=== PATIENT | female | born 1995 | race Hispanic/Latino ===

== ENCOUNTER 2017-09-30 11:12 | Emergency (ER) | payer OTHER, SELFPAY ==
[2017-09-30 12:03] LABS: Absolute Lymphocytes (CBC) 1.3 K/uL (0.7-4.9); Absolute Monocytes 0.6 K/uL (0.1-1.3); Absolute Neutrophil 7.5 K/uL (1.8-8.0); Basophils % 0.6 % (0-1.3); Eosinophils % 0.8 % (0-4.4); Hematocrit 39.8 % (36.0-45.0); Lymphocytes % 13.1 % (15.3-44.8); MCH 27.6 pg (27.0-35.0); MPV 9.1 fL (7.6-11.3); Monocytes % 6.8 % (3.3-12.3); RBC Red Blood Cell Count 4.85 M/uL (3.86-4.86)
[2017-09-30 12:06] LABS: Urine Bacteria NONE SEEN /HPF (<20); Urine Culture Reflex Order NOT NEEDED; Urine Mucus MOD /HPF (NONE SEEN); Urine RBC NONE SEEN /HPF (NONE SEEN)
[2017-09-30 12:07] LABS: Urine Blood NEGATIVE (NEG); Urine Glucose NEGATIVE (NEG); Urine Protein TRACE (NEG)
[2017-09-30] MEDS ORDERED: NA CHLORIDE 0.9% 1,000 ML ONE (12:07)
[2017-09-30 12:16] LABS: BUN Blood Urea Nitrogen 15 mg/dL (7-18); Bicarbonate 28 mmol/L (21-32); Glucose Level 88 mg/dL (74-106); Potassium 3.8 mmol/L (3.5-5.1); Sodium Level 141 mmol/L (136-145)
--- NOTE | 2017-09-30 13:06 | RAD REPORT ---
EXAM DESCRIPTION: CT - Stone Protocol - 09/30/2017 12:43 pm CLINICAL HISTORY: Flank pain. FLANK PAIN COMPARISON: No comparisonsNo comparisons TECHNIQUE: Axial images were obtained without oral or IV contrast. Lack of contrast limits solid org an and vascular assessment. The [id number] spans the entirety of the system partially obscuring uppermost abdomen and lung bases. Coronal reformatted images were obtained and reviewed. All CT scans are performed using dose optimization technique as appropriate and may include automated exposure control or mA/KV adjustment according to patient size. FINDINGS: The lower lung sanders are clear. Imaged portions of the liver and spleen show no suspicious findings on non-contrast imaging. The panc reas and adrenal glands are normal. No pathologic lymphadenopathy in the abdomen or pelvis. 2 mm calculus is present the left UVJ resulting in mild left hydronephrosis No bowel obstruction, free air, free fluid or abscess. Appendectomy. No significant bony abnormality. IMPRESSION: 2 mm left UVJ calculus resulting in mild left hydronephrosis.
--- NOTE | 2017-09-30 13:09 | EDPHYS ---
Physician Documentation [facility] Name: Keyla Addison Age: 22 yrs Sex: Female : 1995 Arrival Date: 09/30/2017 Time: 11:14 Bed 15 Private MD: None, None ED Physician Alphonso Espinal HPI: 09/30 12:33 This 22 yrs old Female presents to ER via Ambulatory with complaints of SIDE snw PAIN. 12:33 The patient complains of pain in the left mid back. The pain does not radiate. Onset: snw The symptoms/episode began/occurred suddenly, last night. Associated signs and symptoms: The patient has no apparent associated signs or symptoms. Severity of pain: At its worst the pain was moderate severe. The patient has not experienced similar symptoms in the past. It is unknown whether or not the patient has recently seen a physician. 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 - Social history:: Smoking status: Patient/guardian denies using tobacco. - Ebola Screening: : No symptoms or risks identified at this time. ROS: 12:32 Constitutional: Negative for fever, chills, and weight loss, Eyes: Negative for injury, snw pain, redness, and discharge, ENT: Negative for injury, pain, and discharge, Neck: Negative for injury, pain, and swelling, Cardiovascular: Negative for chest pain, palpitations, and edema, Respiratory: Negative for shortness of breath, cough, wheezing, and pleuritic chest pain, Abdomen/GI: Negative for abdominal pain, nausea, vomiting, diarrhea, and constipation, : Negative for injury, bleeding, discharge, and swelling, MS/Extremity: Negative for injury and deformity, Skin: Negative for injury, rash, and discoloration, Neuro: Negative for headache, weakness, numbness, tingling, and seizure. 12:32 Back: Positive for flank pain, on the left. Exam: 12:32 Constitutional: This is a well developed, well nourished patient who is awake, alert, snw and in no acute distress. Head/Face: Normocephalic, atraumatic. Eyes: Pupils equal round and reactive to light, extra-ocular motions intact. Lids and lashes normal. Conjunctiva and sclera are non-icteric and not injected. Cornea within normal limits. Periorbital areas with no swelling, redness, or edema. ENT: Nares patent. No nasal discharge, no septal abnormalities noted. Tympanic membranes are normal and external auditory canals are clear. Oropharynx with no redness, swelling, or masses, exudates, or evidence of obstruction, uvula midline. Mucous membranes moist. Neck: Trachea midline, no thyromegaly or masses palpated, and no cervical lymphadenopathy. Supple, full range of motion without nuchal rigidity, or vertebral point tenderness. No Meningismus. Chest/axilla: Normal chest wall appearance and motion. Nontender with no deformity. No lesions are appreciated. Cardiovascular: Regular rate and rhythm with a normal S1 and S2. No gallops, murmurs, or rubs. Normal PMI, no JVD. No pulse deficits. Respiratory: Lungs have equal breath sounds bilaterally, clear to auscultation and percussion. No rales, rhonchi or wheezes noted. No increased work of breathing, no retractions or nasal flaring. Abdomen/GI: Soft, non-tender, with normal bowel sounds. No distension or tympany. No guarding or rebound. No evidence of tenderness throughout. Skin: Warm, dry with normal turgor. Normal color with no rashes, no lesions, and no evidence of cellulitis. MS/ Extremity: Pulses equal, no cyanosis. Neurovascular intact. Full, normal range of motion. Neuro: Awake and alert, GCS 15, oriented to person, place, time, and situation. Cranial nerves II-XII grossly intact. Motor strength 5/5 in all extremities. Sensory grossly intact. Cerebellar exam normal. Normal gait. Psych: Awake, alert, with orientation to person, place and time. Behavior, mood, and affect are within normal limits. 12:32 Back: CVA tenderness, that is moderate, is noted on the left. Vital Signs: 11:18 BP 155 / 96; Pulse 79; Resp 18; Temp 99.7; Pulse Ox 98% ; Weight 77.11 kg; Height 5 ft. sv 3 in. (160.02 cm); Pain 7/10; 12:00 BP 125 / 83; Pulse 74; Resp 17; Pulse Ox 99% on R/A; rb1 13:00 BP 131 / 91; Pulse 75; Resp 16; Pulse Ox 100% on R/A; rb1 11:18 Body Mass Index 30.11 (77.11 kg, 160.02 cm) sv MDM: 11:21 Patient medically screened. snw 13:28 Data reviewed: vital signs, nurses notes. Data interpreted: Pulse oximetry: on room air snw is 98 %. Interpretation: normal. Counseling: I had a detailed discussion with the patient and/or guardian regarding: the historical points, exam findings, and any diagnostic results supporting the discharge/admit diagnosis, the presence of at least one elevated blood pressure reading (>120/80) during this emergency department visit, lab results, radiology results, the need for outpatient follow up, to return to the emergency department if symptoms worsen or persist or if there are any questions or concerns that arise at home. Special discussion: Based on the patient's Hx, exam, and Dx evaluation, there is no indication for emergent surgery or inpatient Tx. It is understood by the patient/guardian that if the Sx's persist or worsen they need to return immediately for re-evaluation. Based on the history and exam findings, there is no indication for further emergent testing or inpatient evaluation. I discussed with the patient/guardian the need to see the primary care provider for further evaluation of the symptoms. 09/30 11:36 Order name: Urine Microscopic Only; Complete Time: 12:18 snw 09/30 11:37 Order name: Basic Metabolic Panel; Complete Time: 12:18 snw 09/30 11:36 Order name: CT Stone Protocol; Complete Time: 13:07 snw 09/30 11:37 Order name: CBC with Diff; Complete Time: 12:18 snw 09/30 11:47 Order name: Urine Dipstick--Ancillary (enter results); Complete Time: 12:18 eb 09/30 11:47 Order name: Urine --Ancillary (enter results); Complete Time: 12:18 eb 09/30 11:36 Order name: Urine Test (obtain specimen); Complete Time: 11:59 snw 09/30 11:36 Order name: Urine Dipstick-Ancillary (obtain specimen); Complete Time: 11:59 snw 09/30 11:37 Order name: IV Saline Lock; Complete Time: 11:59 snw 09/30 11:37 Order name: Labs collected and sent; Complete Time: 11:59 snw Administered Medications: 12:06 Drug: NS 0.9% 1000 ml Route: IV; Rate: 1 bolus; Site: right forearm; rb1 13:10 Follow up: IV Status: Completed infusion rb1 13:12 Drug: fentaNYL (PF) 50 mcg Route: IVP; Site: right forearm; rb1 13:33 Follow up: Response: No adverse reaction; Pain is decreased rb1 13:14 Drug: TORadol 30 mg Route: IVP; Site: right forearm; rb1 13:33 Follow up: Response: No adverse reaction; Pain is decreased rb1 Disposition: 15:30 Co-signature as Attending Physician, Alphonso Espinal MD I agree with the assessment and kdr plan of care. Disposition: 09/30/17 13:09 Discharged to Home. Impression: Hydronephrosis with renal and ureteral calculous obstruction. - Condition is Stable. - Discharge Instructions: Kidney Stones, Hydronephrosis, Dietary Guidelines to Help Prevent Kidney Stones. - Prescriptions for Zofran 4 mg Oral Tablet - take 1 tablet by ORAL route every 12 hours As needed; 20 tablet. Diclofenac Sodium 75 mg Oral Tablet Sustained Release - take 1 tablet by ORAL route 2 times per day; 30 tablet. - Medication Reconciliation Form, Thank You Letter, Antibiotic Education, Prescription Opioid Use, Work release form form. - Follow up: Private Physician; When: 2 - 3 days; Reason: Recheck today's complaints, Continuance of care, Re-evaluation by your physician. Follow up: Emergency Department; When: As needed; Reason: Worsening of condition. Signatures: Dispatcher [employer] Reshma Lobo RN RN sv Rittger, Kevin, MD MD kdr Therrien, Shelly, MANAGER MOTOR-C MANAGER MOTOR-Cordellw Keyanna Lora RN RN ss Barber, Rebecca, RN RN rb1 Corrections: (The following items were deleted from the chart) 13:46 13:09 09/30/2017 13:09 Discharged to Home. Impression: Hydronephrosis with renal and ss ureteral calculous obstruction. Condition is Stable. Forms are Medication Reconciliation Form, Thank You Letter, Antibiotic Education, Prescription Opioid Use. Follow up: Private Physician; When: 2 - 3 days; Reason: Recheck today's complaints, Continuance of care, Re-evaluation by your physician. Follow up: Emergency Department; When: As needed; Reason: Worsening of condition. snw
--- NOTE | 2017-09-30 13:09 | ER ---
Nurse's Notes [facility] Name: Keyla Addison Age: 22 yrs Sex: Female : 1995 Arrival Date: 09/30/2017 Time: 11:14 Bed 15 Private MD: None, None Diagnosis: Hydronephrosis with renal and ureteral calculous obstruction Presentation: 09/30 11:17 Presenting complaint: Patient states: left flank pain that started last night. sv Transition of care: patient was not received from another setting of care. Onset of symptoms was September 29, 2017. Care prior to arrival: None. 11:17 Method Of Arrival: Ambulatory sv 11:17 Acuity: EUGENIA 3 sv 11:22 Risk Assessment: Do you want to hurt yourself or someone else? Patient reports no rb1 desire to harm self or others. Initial Sepsis Screen: Does the patient meet any 2 criteria? No. Patient's initial sepsis screen is negative. Does the patient have a suspected source of infection? No. Patient's initial sepsis screen is negative. 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 - Social history:: Smoking status: Patient/guardian denies using tobacco. - Ebola Screening: : No symptoms or risks identified at this time. Screenin:22 Abuse screen: Denies threats or abuse. Nutritional screening: No deficits noted. rb1 Tuberculosis screening: No symptoms or risk factors identified. Fall Risk None identified. Assessment: 11:22 General: Appears uncomfortable, Behavior is calm, cooperative, Denies fever. Pain: rb1 Complains of pain in left mid back Pain currently is 8 out of 10 on a pain scale. Pain began 1 day ago. Neuro: Level of Consciousness is awake, alert, obeys commands, Oriented to person, place, time, situation. Cardiovascular: Capillary refill < 3 seconds is brisk in bilateral fingers. Respiratory: Airway is patent Respiratory effort is even, unlabored, Respiratory pattern is regular, symmetrical. GI: No signs and/or symptoms were reported involving the gastrointestinal system. : No signs and/or symptoms were reported regarding the genitourinary system. Derm: Skin is dry, Skin is normal, Skin temperature is warm. 12:06 Reassessment: Patient appears in no apparent distress at this time. No changes from rb1 previously documented assessment. Family at bedside. Call light within reach. 13:05 Reassessment: Patient appears in no apparent distress at this time. Patient and/or rb1 family updated on plan of care and expected duration. Pain level reassessed. Patient is alert, oriented x 3, equal unlabored respirations, skin warm/dry/pink. Vital Signs: 11:18 BP 155 / 96; Pulse 79; Resp 18; Temp 99.7; Pulse Ox 98% ; Weight 77.11 kg; Height 5 ft. sv 3 in. (160.02 cm); Pain 7/10; 12:00 BP 125 / 83; Pulse 74; Resp 17; Pulse Ox 99% on R/A; rb1 13:00 BP 131 / 91; Pulse 75; Resp 16; Pulse Ox 100% on R/A; rb1 11:18 Body Mass Index 30.11 (77.11 kg, 160.02 cm) sv ED Course: 11:14 Patient arrived in ED. sb2 11:14 None, None is Private Physician. sb2 11:18 Triage completed. sv 11:19 Arm band placed on right wrist. sv 11:21 Amanda Watts FNP-C is [facility]. snw 11:21 Alphonso Espinal MD is Attending Physician. snw 11:21 Mellisa Galdamez, RN is Primary Nurse. rb1 11:22 Patient has correct armband on for positive identification. Bed in low position. Call rb1 light in reach. Side rails up X 1. Pulse ox on. NIBP on. 11:54 Radiology exam delayed due to test not completed at this time. sj 11:55 Urine collected: clean catch specimen, clear, sae colored. Inserted saline lock: 22 jp3 gauge in left forearm, using aseptic technique. 11:59 Pillow given. jp3 12:41 Patient moved to MD via wheelchair. vr 12:42 CT completed. Patient tolerated procedure well. Patient moved back from MD. vr 12:43 CT Stone Protocol In Process Unspecified. EDMS 13:44 No provider procedures requiring assistance completed. IV discontinued, intact, ss bleeding controlled, No redness/swelling at site. Pressure dressing applied. Administered Medications: 12:06 Drug: NS 0.9% 1000 ml Route: IV; Rate: 1 bolus; Site: right forearm; rb1 13:10 Follow up: IV Status: Completed infusion rb1 13:12 Drug: fentaNYL (PF) 50 mcg Route: IVP; Site: right forearm; rb1 13:33 Follow up: Response: No adverse reaction; Pain is decreased rb1 13:14 Drug: TORadol 30 mg Route: IVP; Site: right forearm; rb1 13:33 Follow up: Response: No adverse reaction; Pain is decreased rb1 Outcome: 13:09 Discharge ordered by . davi 13:44 Discharged to home ambulatory. ss 13:44 Condition: good 13:44 Discharge instructions given to patient, family, Instructed on discharge instructions, follow up and referral plans. medication usage, Demonstrated understanding of instructions, follow-up care, medications, Prescriptions given X 2. 13:46 Patient left the ED. Signatures: Dispatcher [employer] EDReshma Wood RN RN Amanda Mc, ROTARY RIG ENGINE OPERATOR-C ROTARY RIG ENGINE OPERATOR-Csnw Areli Carrion Shelby, RN RN ss Brittani Corbett Rebecca, RN RN rb1 Mary Caballero2 Jose Antonio Coreas jp3
[2017-09-30] MEDS ORDERED: KETOROLAC 30 MG/ML INJ ONE (13:16)
[2017-09-30] MEDS ORDERED: FENTANYL CITR 100 MCG/2 ML ONE (13:16)
== END 2017-09-30 13:46 | disposition home or self-care (01) ==
LOC: ER 11:12
DX: N13.2 Hydronephrosis with renal and ureteral calculous obstruction (principal)
CPT/HCPCS: 36415; 74176; 76377; 80048; 81003; 81015; 81025; 85025; 96361; 96374; 96375; 99284; J3010; J7030

== ENCOUNTER 2017-09-30 19:11 | Emergency (ER) | payer SELFPAY ==
[2017-09-30] MEDS ORDERED: HYDROCODONE/APAP 5/325 MG TAB ONE (19:45)
[2017-09-30] MEDS ORDERED: PROMETHAZINE 25 MG TABLET ONE (19:46)
[2017-09-30] MEDS ORDERED: FENTANYL CITR 100 MCG/2 ML ONE (19:46)
--- NOTE | 2017-09-30 21:28 | EDPHYS ---
Physician Documentation [facility] Name: Keyla Addison Age: 22 yrs Sex: Female : 1995 Arrival Date: 09/30/2017 Time: 19:13 Bed 25 Private MD: ED Physician Charan Castle HPI: 09/30 20:15 This 22 yrs old Female presents to ER via Ambulatory with complaints of Flank snw Pain. 20:15 The patient complains of pain in the left mid back. The pain does not radiate. Onset: snw The symptoms/episode began/occurred suddenly. Associated signs and symptoms: Pertinent positives: nausea. Severity of pain: At its worst the pain was severe. The patient has not experienced similar symptoms in the past. The patient has been recently seen at the [facility] Emergency Department, today. 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 - Social history:: Smoking status: Patient/guardian denies using tobacco. - Ebola Screening: : Patient denies travel to an Ebola-affected area in the 21 days before illness onset. ROS: 20:14 Constitutional: Negative for fever, chills, and weight loss, Eyes: Negative for injury, snw pain, redness, and discharge, ENT: Negative for injury, pain, and discharge, Neck: Negative for injury, pain, and swelling, Cardiovascular: Negative for chest pain, palpitations, and edema, Respiratory: Negative for shortness of breath, cough, wheezing, and pleuritic chest pain, Abdomen/GI: Negative for abdominal pain, nausea, vomiting, diarrhea, and constipation, : Negative for injury, bleeding, discharge, and swelling, MS/Extremity: Negative for injury and deformity, Skin: Negative for injury, rash, and discoloration, Neuro: Negative for headache, weakness, numbness, tingling, and seizure. 20:14 Back: Positive for flank pain, on the left. Exam: 20:13 Constitutional: This is a well developed, well nourished patient who is awake, alert, snw and in no acute distress. Head/Face: Normocephalic, atraumatic. Eyes: Pupils equal round and reactive to light, extra-ocular motions intact. Lids and lashes normal. Conjunctiva and sclera are non-icteric and not injected. Cornea within normal limits. Periorbital areas with no swelling, redness, or edema. ENT: Nares patent. No nasal discharge, no septal abnormalities noted. Tympanic membranes are normal and external auditory canals are clear. Oropharynx with no redness, swelling, or masses, exudates, or evidence of obstruction, uvula midline. Mucous membranes moist. Neck: Trachea midline, no thyromegaly or masses palpated, and no cervical lymphadenopathy. Supple, full range of motion without nuchal rigidity, or vertebral point tenderness. No Meningismus. Chest/axilla: Normal chest wall appearance and motion. Nontender with no deformity. No lesions are appreciated. Cardiovascular: Regular rate and rhythm with a normal S1 and S2. No gallops, murmurs, or rubs. Normal PMI, no JVD. No pulse deficits. Respiratory: Lungs have equal breath sounds bilaterally, clear to auscultation and percussion. No rales, rhonchi or wheezes noted. No increased work of breathing, no retractions or nasal flaring. Abdomen/GI: Soft, non-tender, with normal bowel sounds. No distension or tympany. No guarding or rebound. No evidence of tenderness throughout. Skin: Warm, dry with normal turgor. Normal color with no rashes, no lesions, and no evidence of cellulitis. MS/ Extremity: Pulses equal, no cyanosis. Neurovascular intact. Full, normal range of motion. Neuro: Awake and alert, GCS 15, oriented to person, place, time, and situation. Cranial nerves II-XII grossly intact. Motor strength 5/5 in all extremities. Sensory grossly intact. Cerebellar exam normal. Normal gait. Psych: Awake, alert, with orientation to person, place and time. Behavior, mood, and affect are within normal limits. 20:13 Back: pain, that is moderate, that is severe, CVA tenderness, that is moderate, that is severe, left lower flank pain - in ED this am. 2mm UVJ stone. Vital Signs: 19:30 BP 156 / 99; Pulse 89; Resp 18; Temp 97.8(TE); Pulse Ox 99% on R/A; Weight 77.11 kg aj1 (R); Height 5 ft. 3 in. (160.02 cm) (R); 21:06 BP 141 / 90; Pulse 77; Resp 20; Pulse Ox 100% on R/A; Pain 2/10; ed1 19:30 Body Mass Index 30.11 (77.11 kg, 160.02 cm) aj1 MDM: 19:29 Patient medically screened. [facility] 21:29 Data reviewed: vital signs, nurses notes. Data interpreted: Pulse oximetry: on room air snw is 100 %. Interpretation: normal. Counseling: I had a detailed discussion with the patient and/or guardian regarding: the historical points, exam findings, and any diagnostic results supporting the discharge/admit diagnosis, the presence of at least one elevated blood pressure reading (>120/80) during this emergency department visit, the need for outpatient follow up, to return to the emergency department if symptoms worsen or persist or if there are any questions or concerns that arise at home. Special discussion: I have referred the patient to see his PCP for further evaluation of high blood pressure. Based on the history and exam findings, there is no indication for further emergent testing or inpatient evaluation. I discussed with the patient/guardian the need to see the primary care provider for further evaluation of the symptoms. I discussed with the patient/guardian the need to see the urologist for further evaluation of the symptoms. Administered Medications: 19:46 Drug: fentaNYL (PF) 50 mcg Route: IM; Site: left deltoid; ed1 21:46 Follow up: Response: No adverse reaction; Pain is decreased ed1 19:46 Drug: [place] 5 mg-325 mg 1 tabs Route: PO; ed1 21:45 Follow up: Response: No adverse reaction; Pain is decreased ed1 19:46 Drug: Phenergan 25 mg Route: PO; ed1 21:45 Follow up: Response: No adverse reaction; Nausea is decreased ed1 Disposition: 10/01 08:05 Co-signature as Attending Physician, Charan Castle MD I agree with the assessment and [facility] plan of care. Disposition: 18 21:27 Discharged to Home. Impression: Ureteral colic. - Condition is Stable. - Discharge Instructions: Kidney Stones, Renal Colic. - Prescriptions for Tylenol- Codeine #3 300-30 mg Oral Tablet - take 2 tablets by ORAL route every 6 hours As needed; 20 tablet. - Medication Reconciliation Form, Thank You Letter, Antibiotic Education, Prescription Opioid Use form. - Follow up: Private Physician; When: 2 - 3 days; Reason: Recheck today's complaints, Continuance of care, Re-evaluation by your physician. Follow up: Emergency Department; When: As needed; Reason: Worsening of condition. Signatures: Shila Encarnacion RN RN aj1 Charan Castle MD MD cha Therrien, Shelly, NEWSPAPER PRESS OPERATOR APPRENTICE-C NEWSPAPER PRESS OPERATOR APPRENTICE-Csnw Juli Lucero, TRANSPLANT SURGEON TRANSPLANT SURGEON ed1 Corrections: (The following items were deleted from the chart) 09/30 21:46 21:27 09/30/2017 21:27 Discharged to Home. Impression: Ureteral colic. Condition is ed1 Stable. Forms are Medication Reconciliation Form, Thank You Letter, Antibiotic Education, Prescription Opioid Use. Follow up: Private Physician; When: 2 - 3 days; Reason: Recheck today's complaints, Continuance of care, Re-evaluation by your physician. Follow up: Emergency Department; When: As needed; Reason: Worsening of condition. snw
--- NOTE | 2017-09-30 21:28 | ER ---
Nurse's Notes [facility] Name: Keyla Addison Age: 22 yrs Sex: Female : 1995 Arrival Date: 09/30/2017 Time: 19:13 Bed 25 Private MD: Diagnosis: Ureteral colic Presentation: 09/30 19:27 Presenting complaint: Patient states: She was seen here earlier and diagnosed with aj1 kidney stones. She was sent with a Rx for Diclofenac, and she is still having pain so she came back. Transition of care: patient was not received from another setting of care. Onset of symptoms was September 30, 2017. Risk Assessment: Do you want to hurt yourself or someone else? Patient reports no desire to harm self or others. Initial Sepsis Screen: Does the patient meet any 2 criteria? No. Patient's initial sepsis screen is negative. Does the patient have a suspected source of infection? No. Patient's initial sepsis screen is negative. Care prior to arrival: None. 19:27 Method Of Arrival: Ambulatory aj1 19:27 Acuity: EUGENIA 3 aj1 Triage Assessment: 19:30 General: Appears in no apparent distress. comfortable, Behavior is calm, cooperative, aj1 appropriate for age. Pain: Complains of pain in back. Neuro: Level of Consciousness is awake, alert, obeys commands. 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 - Social history:: Smoking status: Patient/guardian denies using tobacco. - Ebola Screening: : Patient denies travel to an Ebola-affected area in the 21 days before illness onset. Screenin:22 Abuse screen: Denies threats or abuse. Denies injuries from another. Nutritional ed1 screening: No deficits noted. Tuberculosis screening: No symptoms or risk factors identified. Fall Risk None identified. Assessment: 19:22 General: Appears uncomfortable, Behavior is calm, cooperative. Pain: Complains of pain ed1 in back Pain does not radiate. Pain currently is 10 out of 10 on a pain scale. Quality of pain is described as aching, Pain began 1 day ago. Is continuous. Neuro: Level of Consciousness is awake, alert, obeys commands, Oriented to person, place, time, situation. Cardiovascular: Denies chest pain, Heart tones S1 S2 present. Respiratory: Airway is patent Respiratory effort is even, unlabored, Respiratory pattern is regular, symmetrical, Breath sounds are clear bilaterally. GI: No signs and/or symptoms were reported involving the gastrointestinal system. : No signs and/or symptoms were reported regarding the genitourinary system. EENT: No signs and/or symptoms were reported regarding the EENT system. Derm: Skin is pink, warm \T\ dry. Musculoskeletal: Circulation, motion, and sensation intact. 21:06 Reassessment: Patient appears in no apparent distress at this time. Patient and/or ed1 family updated on plan of care and expected duration. Pain level reassessed. Patient is alert, oriented x 3, equal unlabored respirations, skin warm/dry/pink. Patient states feeling better. Patient states symptoms have improved. Vital Signs: 19:30 BP 156 / 99; Pulse 89; Resp 18; Temp 97.8(TE); Pulse Ox 99% on R/A; Weight 77.11 kg aj1 (R); Height 5 ft. 3 in. (160.02 cm) (R); 21:06 BP 141 / 90; Pulse 77; Resp 20; Pulse Ox 100% on R/A; Pain 2/10; ed1 19:30 Body Mass Index 30.11 (77.11 kg, 160.02 cm) aj1 ED Course: 19:13 Patient arrived in ED. es 19:22 Patient has correct armband on for positive identification. Bed in low position. Call ed1 light in reach. Side rails up X2. 19:25 [facility] snw 19:25 Charan Castle MD is Attending Physician. snw 19:30 Triage completed. aj1 19:30 Arm band placed on Patient placed in an exam room. aj1 19:37 Juli Lucero LVN is Primary Nurse. ed1 21:44 No provider procedures requiring assistance completed. Patient did not have IV access ed1 during this emergency room visit. Administered Medications: 19:46 Drug: fentaNYL (PF) 50 mcg Route: IM; Site: left deltoid; ed1 21:46 Follow up: Response: No adverse reaction; Pain is decreased ed1 19:46 Drug: [place] 5 mg-325 mg 1 tabs Route: PO; ed1 21:45 Follow up: Response: No adverse reaction; Pain is decreased ed1 19:46 Drug: Phenergan 25 mg Route: PO; ed1 21:45 Follow up: Response: No adverse reaction; Nausea is decreased ed1 Outcome: 21:27 Discharge ordered by MD. tomlinson :44 Discharged to home ambulatory, with family. ed1 :44 Condition: good 21:44 Discharge instructions given to patient, Instructed on discharge instructions, follow up and referral plans. medication usage, Demonstrated understanding of instructions, follow-up care, medications, Prescriptions given X 1. 21:46 Patient left the ED. ed1 Signatures: Shila Encarnacion RN RN aj1 Amanda Watts, ELECTROLYSIS ENGINEER-C ELECTROLYSIS ENGINEER-Csnw Candida Oliva Erika, LVN LVN ed1
== END 2017-09-30 21:46 | disposition home or self-care (01) ==
LOC: ER 19:11
DX: N23 Unspecified renal colic (principal)
CPT/HCPCS: 96372; 99283; J3010

== ENCOUNTER 2018-10-17 13:15 | Emergency (ER) | payer SELFPAY ==
--- OUTSIDE RECORDS SUMMARY | 2018-10-17 13:18 | XMS REPORT | Summary of Care ---
:1995 Author Organization [facility] Address [address] [place] [address] Care Team Providers Name Role Phone Pcp, Patient Does Not Have A Primary Care Provider Reason for Referral MRI/CAT Scan (STAT) Status Reason Specialty Diagnoses / Referred By Referred To Procedures Contact Contact New Request Diagnostic Diagnoses Generalized abdominal pain Yarima, [place] Radiology Procedures CT ABDOMEN PELVIS WO CONTRAST MD Virgen Marcial [address] [address] MRI/CAT Scan (STAT) Status Reason Specialty Diagnoses / Referred By Referred To Procedures Contact Contact New Request Diagnostic Diagnoses Generalized abdominal pain Yarima, [place] Radiology Procedures CT ABDOMEN PELVIS WO CONTRAST MD Virgen Marcial [address] [address] Reason for Visit Reason Comments Abdominal Pain Auth/Cert Status Reason Specialty Diagnoses / Referred By Referred To Procedures Contact Contact [facility] [address] [place] [address] [place] [address] Encounter Details Date Type Department Care Team Description 10/17/2018 Emergency [facility] Grace Sanz S, Generalized abdominal pain (Primary Dx); Department Ureteral calculus, right; [address] [place] [address] Dr New [facility] Ureteral colic; [place] [address] [id number] Renal calculus, right; [phone] [place], [place] Leukocytosis, unspecified type [id number] Allergies No Known Allergiesdocumented as of this encounter (statuses as of 10/17/2018) Medications Medication Sig Dispensed Refills Start Date End Date Status ketorolac 10 mg Take 1 tablet by 20 tablet 0 10/17/2018 Active tabletIndications: mouth every 6 Ureteral calculus, (six) hours as right, Ureteral needed for Pain colic (scale 4-6). acetaminophen-codein Take 1 tablet by 15 tablet 0 10/17/2018 Active e (TYLENOL-CODEINE mouth every 6 #3) 300-30 mg (six) hours as tabletIndications: needed for Pain Ureteral calculus, (scale 4-6). right, Ureteral colic tamsulosin 0.4 mg 24 Take 1 capsule by 14 capsule 0 10/17/2018 Active hr mouth at bedtime. capsuleIndications: Ureteral calculus, right, Ureteral colic cephALEXin (KEFLEX) Take 1 capsule by 14 capsule 0 10/17/2018 10/24/2018 Active 500 mg mouth 2 (two) capsuleIndications: times daily for 7 Ureteral calculus, days. right, Ureteral colic documented as of this encounter (statuses as of 10/17/2018) Active Problems Problem Noted Date Hip pain, right 05/29/2015 Knee pain, right 05/29/2015 documented as of this encounter (statuses as of 10/17/2018) Social History Tobacco Use Types Packs/Day Years Used Date Never Assessed Sex Assigned at Date Recorded Not on file Job Start Date Occupation Industry Not on file Not on file Not on file Travel History Travel Start Travel End No recent travel history available. documented as of this encounter Last Filed Vital Signs Vital Sign Reading Time Taken Comments Blood Pressure 146/102 10/17/2018 8:48 AM CDT Pulse 83 10/17/2018 8:48 AM CDT Temperature 37.4 C (99.3 F) 10/17/2018 5:51 AM CDT Respiratory Rate 14 10/17/2018 8:48 AM CDT Oxygen Saturation 100% 10/17/2018 8:48 AM CDT Inhaled Oxygen Concentration - - Weight 72.1 kg (159 lb) 10/17/2018 5:51 AM CDT Height - - Body Mass Index - - documented in this encounter Discharge Instructions Ilir Lara MD - 10/17/2018 DIAGNOSIS Diagnoses that have been ruled out: None Diagnoses that are still under consideration: None Final diagnoses: Generalized abdominal pain Ureteral calculus, right Ureteral colic Renal calculus, right Leukocytosis, unspecified type NO LIFE-THREATENING FINDINGS ON TODAY'S EXAM. PROCEDURES IN THE ER TODAY: Orders Placed This Encounter Procedures CT ABDOMEN PELVIS WO CONTRAST URINALYSIS POCT TEST CBC WITH DIFF COMP. METABOLIC PANEL (82785) LIPASE CBC WITH DIFFERENTIAL MEDICATIONS ADMINISTERED IN THE ER TODAY: Orders Placed This Encounter Medications ketorolac (TORADOL) injection 30 mg cefTRIAXone (ROCEPHIN) 1,000 mg in NaCl 0.9% (NS) 50 mL MINI-BAG FENTanyl PF (SUBLIMAZE (PF)) injection 50 mcg YOUR PRESCRIPTIONS AND [id number] MEDICATION RECOMMENDATIONS: Flomax Keflex Toradol Tylenol #3 SPECIAL CARE INSTRUCTIONS: Follow up with urology Return to the ED if worsening of symptoms FOLLOW-UP RECOMMENDATIONS: RECOMMEND FOLLOW-UP WITH A PRIMARY CARE PROVIDER OR SPECIALIST IN 2-5 DAYS, ESPECIALLY IF NO IMPROVEMENT IN SYMPTOMS. TO FOLLOW-UP WITHIN THE [facility], TRY THESE OPTIONS (CLINIC APPOINTMENTS AVAILABLE ON [id number] BASIS): 1. SCHEDULE AN APPOINTMENT ONLINE AT [email or web address] 2. OR CALL THE [facility] AT OR 3. OR CALL YOUR [facility] PHYSICIAN'S OFFICE DIRECTLY IF YOU ARE ALREADY AN ESTABLISHED [facility] PATIENT. OR, YOU MAY FOLLOW-UP WITH A PROVIDER OF YOUR CHOICE, SUCH : 1. A PHYSICIAN OF YOUR CHOICE 2. [facility] AND [facility], . LOCATIONS IN [facility] 3. [facility], [address] [place] [address]; [phone] RETURN TO ER FOR WORSENING OF SYMPTOMS. AttachmentsThe following attachments cannot be sent through Care Everywhere.Kidney Stone w/ Colic (Georgian)Bladder Infection, Female (Adult) ( Georgian)documented in this encounter Plan of Treatment Health Maintenance Due Date Last Done Comments MENINGOCOCCAL B VACCINES (1 of 2 - 2007 Risk Bexsero 2-dose series) VARICELLA VACCINES (1 of 2 - 13+ 2010 2-dose series) HPV VACCINES (1 - Female 3-dose 2012 series) CHLAMYDIA SCREENING 2013 DTaP,Tdap,and Td Vaccines (1 - 2016 Tdap) PAP SMEAR 2018 INFLUENZA VACCINE (#1) 2018 MENINGOCOCCAL VACCINE Aged Out No longer eligible based on patient's age to complete this topic PNEUMOCOCCAL 0-64 YEARS COMBINED Aged Out No longer eligible based on SERIES patient's age to complete this topic documented as of this encounter Procedures Procedure Name Priority Date/Time Associated Diagnosis Comments CT ABDOMEN PELVIS WO STAT 10/17/2018 6:21 Generalized Results for this CONTRAST AM CDT abdominal pain procedure are in the results section. CBC WITH DIFFERENTIAL STAT 10/17/2018 6:07 Generalized Results for this AM CDT abdominal pain procedure are in the results section. URINALYSIS STAT 10/17/2018 6:07 Generalized Results for this AM CDT abdominal pain procedure are in the results section. CBC WITH DIFF STAT 10/17/2018 6:07 Generalized Results for this AM CDT abdominal pain procedure are in the results section. COMP. METABOLIC PANEL STAT 10/17/2018 6:07 Generalized Results for this (14156) AM CDT abdominal pain procedure are in the results section. LIPASE STAT 10/17/2018 6:07 Generalized Results for this AM CDT abdominal pain procedure are in the results section. POCT TEST CHITO 10/17/2018 5:59 Generalized Results for this AM CDT abdominal pain procedure are in the results section. NOTICE OF PRIVACY Routine 10/17/2018 5:28 PRACTICES AM CDT documented in this encounter Results CT ABDOMEN PELVIS WO CONTRAST (10/17/2018 6:21 AM CDT) Specimen Impressions Performed At PACS/VR/DOSE 1. 2 mm stone located in the distal right ureter just proximal to the UVJ produces mildhydroureteronephrosis. There is mildperiureteral and perinephric edematous changes. 2. Additional punctate calyceal stone at the inferior pole of the right kidney. RL: [id number] Narrative Performed At ORDERING PHYSICIAN: GRACE SANZ PACS/VR/DOSE CLINICAL HISTORY: Flank pain, stone disease suspected RLQ/RIGHT FLANK PAIN TECHNIQUE: CT of the abdomen and pelvis was performed without administration of intravenous contrast. CT was performed according to ALARA (as low as reasonably achievable) principle. COMPARISON: none FINDINGS: The included lung bases are clear without evidence of pulmonary nodules or masses. The cardiac silhouette is nonenlarged without evidence of pericardial or pleural effusions. Evaluation of the abdominal solid organs is limited without administration of intravenous contrast. The liver, spleen, pancreas , gallbladder and adrenal glands are normal in appearance. There is an 2 mm stone located in the distal right ureter just proximal to the UVJ which produces mildhydroureteronephrosis. There is mild periureteral and perinephric edematous changes. The rightureter is unremarkable. Additional punctate calyceal stone at the inferior pole the right kidney. Otherwise the kidneys are normal in appearance without evidence of focal mass lesions or cysts. The stomach, small bowel and colon demonstrate appropriate course and caliber without evidence of focal strictures or wall thickening. The appendix is surgically absent. No evidence of pathologic lymphadenopathy, free intraperitoneal air or fluid is present. The urinary bladder, uterus and adnexa are unremarkable. The aorta is nondilated. No acute osseous abnormalities are identified. Procedure Note [facility], Radiant Results Inft User - 10/17/2018 6:37 AM CDT ORDERING PHYSICIAN: GRACE SANZ CLINICAL HISTORY: Flank pain, stone disease suspected RLQ/RIGHT FLANK PAIN TECHNIQUE: CT of the abdomen and pelvis was performed without administration of intravenous contrast. CT was performed according to ALARA (as low as reasonably achievable) principle. COMPARISON: none FINDINGS: The included lung bases are clear without evidence of pulmonary nodules or masses. The cardiac silhouette is nonenlarged without evidence of pericardial or pleural effusions. Evaluation of the abdominal solid organs is limited without administration of intravenous contrast. The liver, spleen, pancreas , gallbladder and adrenal glands are normal in appearance. There is an 2 mm stone located in the distal right ureter just proximal to the UVJ which produces mild hydroureteronephrosis. There is mild periureteral and perinephric edematous changes. The right ureter is unremarkable. Additional punctate calyceal stone at the inferior pole the right kidney. Otherwise the kidneys are normal in appearance without evidence of focal mass lesions or cysts. The stomach, small bowel and colon demonstrate appropriate course and caliber without evidence of focal strictures or wall thickening. The appendix is surgically absent. No evidence of pathologic lymphadenopathy, free intraperitoneal air or fluid is present. The urinary bladder, uterus and adnexa are unremarkable. The aorta is nondilated. No acute osseous abnormalities are identified. IMPRESSION 1. 2 mm stone located in the distal right ureter just proximal to the UVJ produces mild hydroureteronephrosis. There is mild periureteral and perinephric edematous changes. 2. Additional punctate calyceal stone at the inferior pole of the right kidney. RL: [id number] Performing Organization Address City/State/Zipcode Phone Number PACS/VR/DOSE CBC WITH DIFFERENTIAL (10/17/2018 6:07 AM CDT) WBC 20.77 (H) 4.30 - 11.10 [facility] 10*3/L [facility] RBC 4.78 3.93 - 5.25 [facility] 10*6/L [facility] HGB 13.2 11.6 - 15.0 [facility] g/dL [facility] HCT 40.4 35.7 - 45.2 % [facility] MCV 84.5 80.6 - 95.5 fL [facility] MCH 27.6 25.9 - 32.8 pg [facility] MCHC 32.7 31.6 - 35.1 [facility] g/dL [facility] RDW-SD 38.9 (L) 39.0 - 49.9 fL [facility] RDW-CV 12.7 12.0 - 15.5 % [facility] PLT 321 166 - 358 [facility] 10*3/L [facility] MPV 10.9 9.5 - 12.9 fL [facility] NRBC/100 WBC 0.0 0.0 - 10.0 /100 [facility] WBCs [facility] NRBC x10^3 <0.01 10*3/L [facility] GRAN MAT (NEUT) % 88.4 % [facility] IMM GRAN % 0.50 % [facility] LYMPH % 5.4 % [facility] MONO % 4.9 % [facility] EOS % 0.4 % [facility] BASO % 0.4 % [facility] GRAN MAT x10^3(ANC) 18.35 (H) 1.88 - 7.09 [facility] 10*3/uL [facility] IMM GRAN x10^3 0.11 (H) 0.00 - 0.06 [facility] 10*3/uL [facility] LYMPH x10^3 1.12 (L) 1.32 - 3.29 [facility] 10*3/uL [facility] MONO x10^3 1.02 (H) 0.33 - 0.92 [facility] 10*3/uL [facility] EOS x10^3 0.08 0.03 - 0.39 [facility] 10*3/uL [facility] BASO x10^3 0.09 (H) 0.01 - 0.07 [facility] 10*3/uL [facility] Specimen Blood - VENOUS Performing Organization Address City/State/Zipcode Phone Number [facility] CLIA: [id number], [address] [place] [address] LIPASE (10/17/2018 6:07 AM CDT) LIPASE 71 0 - 220 U/L [facility] Specimen Blood - VENOUS Performing Organization Address City/[facility]/Zipcode Phone Number [facility] CLIA: [id number], [address] [place] [address] COMP. METABOLIC PANEL ([id number]) (10/17/2018 6:07 AM CDT) NA 142 135 - 145 [facility] mmol/L [facility] K 4.0 3.5 - 5.0 [facility] mmol/L [facility] CL 107 98 - 108 mmol/L [facility] CO2 TOTAL 22 (L) 23 - 31 mmol/L [facility] AGAP 13 2 - 16 [facility] BUN 21 7 - 23 mg/dL [facility] GLUCOSE 104 70 - 110 mg/dL [facility] CREATININE 0.90 0.50 - 1.04 [facility] mg/dL [facility] TOTAL BILI 0.4 0.1 - 1.1 mg/dL [facility] CALCIUM 9.5 8.6 - 10.6 [facility] mg/dL [facility] T PROTEIN 7.9 6.3 - 8.2 g/dL [facility] ALBUMIN 4.7 3.5 - 5.0 g/dL [facility] ALK PHOS 118 34 - 122 U/L [facility] ALT(SGPT) 22 9 - 51 U/L [facility] AST(SGOT) 29 13 - 40 U/L [facility] eGFR Calculation 79.0 mL/min/1.73m2 [facility] (Non-) [facility] eGFR Calculation 95.8 mL/min/1.73m2 [facility] () [facility] Specimen Blood - VENOUS Narrative Performed At Association of Glomerular Filtration Rate (GFR) [facility] and Staging of Kidney Disease* + + +- + | GFR (mL/min/1.73 m2)| With Kidney Damage|Without Kidney Damage + + +- + |>90| Stage one| Normal + + +- + |60-89|S tage two| Decreased GFR + + +- + |30-59|S tage three| Stage three + + +- + |15-29|S tage four | Stage four + + +- + |<15 (or dialysis)|Stage five | Stage five + + +- + *Each stage assumes the associated GFR level has been in effect for at least three months.Stages 1 to 5, with or without kidney disease, indicate chronic kidney disease. Notes: Determination of stages one and two (with eGFR >59mL/min/1.73 m2) requires estimation of kidney damage for at least three months as defined by structural or functional abnormalities of the kidney, manifested by either: Pathological abnormalities or Markers of kidney damage (including abnormalities in the composition of the blood or urine or abnormalities in imaging tests). Performing Organization Address City/State/Zipcode Phone Number [facility] CLIA: [id number], [address] [place] [address] URINALYSIS (10/17/2018 6:07 AM CDT) APPEARANCE Cloudy (A) Clear [facility] COLOR Yellow Yellow [facility] PH 5.5 4.8 - 8.0 [facility] SP GRAVITY >=1.030 1.003 - 1.030 [facility] GLU U QUAL Negative Negative [facility] BLOOD Moderate (A) Negative [facility] KETONES Negative Negative [facility] PROTEIN Negative Negative [facility] UROBILIN 0.2 mg/dL 0-1.0 mg/dL [facility] BILIRUBIN Negative Negative [facility] NITRITE Negative Negative [facility] LEUK JANEY Moderate (A) Negative [facility] RBC/HPF 2 0 - 3 HPF [facility] WBC/HPF 50 (H) 0 - 5 HPF [facility] BACTERIA Few (A) Negative [facility] MUCOUS Slight (A) Negative LPF [facility] SQ EPITH 5 HPF [facility] Specimen Urine - URINE, CLEAN CATCH Performing Organization Address City/State/Zipcode Phone Number [facility] CLIA: [id number], [address] [place] [address] POCT TEST (10/17/2018 5:59 AM CDT) POCT PREG negative On board controls acceptable present with C Line POCT PREG LOT # [id number] POCT PREG TEST DATE 2020-02-29 Specimen Urine - URINE, CLEAN CATCH documented in this encounter Visit Diagnoses Diagnosis Generalized abdominal pain - Primary Abdominal pain, generalized Ureteral calculus, right Calculus of ureter Ureteral colic Renal colic Renal calculus, right Calculus of kidney Leukocytosis, unspecified type documented in this encounter Administered Medications Medication Order MAR Action Action Date Dose Rate Site cefTRIAXone (ROCEPHIN) 1,000 mg Given 10/17/2018 7:36 AM CDT 1,000 mg in NaCl 0.9% (NS) 50 mL MINI-BAG 1,000 mg, IV Piggyback, ONCE, 1 dose, Wed10/17/18 at 0830, 50 mL, Reason for Anti-Infective: Documented Infection, Documented Infection Site: Urine, Duration of Therapy: 7 days FENTanyl PF (SUBLIMAZE (PF)) injection 50 Given 10/17/2018 8:14 AM CDT 50 mcg mcg 50 mcg, Slow IV Push, ONCE, 1 dose, Wed10/17/18 at 0915, Routine ketorolac (TORADOL) injection 30 mg Given 10/17/2018 6:11 AM CDT 30 mg 30 mg, Slow IV Push, ONCE, 1 dose, Wed10/17/18 at 0715, Routine, membership correspondent approving Restricted medication: GRACE SANZ documented in this encounter"
--- OUTSIDE RECORDS SUMMARY | 2018-10-17 13:18 | XMS REPORT ---
:1995 [facility] Address [address] [place] [address] Dr. [place] [address] [place] [address] Care Team Providers Name Role Phone Unavailable Unavailable Unavailable Problems This patient has no known problems. Allergies, Adverse Reactions, Alerts This patient has no known allergies or adverse reactions. Medications This patient has no known medications.
[2018-10-17 14:18] LABS: Urine Blood NEGATIVE (NEG); Urine Glucose TRACE (NEG); Urine Protein 1+ (NEG)
[2018-10-17 14:29] LABS: Urine Bacteria >50 /HPF (<20); Urine Culture Reflex Order REFLEXED; Urine RBC <5 /HPF (NONE SEEN)
--- NOTE | 2018-10-17 15:11 | ER ---
Nurse's Notes [facility] Name: Keyla Addison Age: 23 yrs Sex: Female : 1995 Arrival Date: 10/17/2018 Time: 13:20 Bed 18 Private MD: Diagnosis: Urinary tract infection, site not specified;Calculus of kidney and ureter Presentation: 10/17 13:33 Presenting complaint: Patient states: suprapubic pain radiating to right low back that aa5 began yesterday. Pt reports urinary urgency and burning with urination. Denies nausea, reports vomited once today, denies diarrhea. Transition of care: patient was not received from another setting of care. Onset of symptoms was September 2018. Risk Assessment: Do you want to hurt yourself or someone else? Patient reports no desire to harm self or others. Initial Sepsis Screen: Does the patient meet any 2 criteria? No. Patient's initial sepsis screen is negative. Does the patient have a suspected source of infection? No. Patient's initial sepsis screen is negative. Care prior to arrival: None. 13:33 Acuity: EUGENIA 3 aa5 13:33 Method Of Arrival: Ambulatory aa5 Triage Assessment: 13:53 General: Appears in no apparent distress. uncomfortable, Behavior is calm, cooperative, hj appropriate for age. Pain: Complains of pain in back and abdomen. GI: Reports lower abdominal pain, upper abdominal pain, nausea. 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 - Social history:: Smoking status: Patient/guardian denies using tobacco. - Ebola Screening: : No symptoms or risks identified at this time. Screenin:53 Abuse screen: Denies threats or abuse. Denies injuries from another. Nutritional hj screening: No deficits noted. Tuberculosis screening: No symptoms or risk factors identified. Fall Risk None identified. Assessment: 13:54 GI: Bowel sounds present X 4 quads. Abd is soft and non tender Abd is soft. hj Vital Signs: 13:35 BP 151 / 100; Pulse 77; Resp 18 S; Temp 98.3(O); Pulse Ox 100% on R/A; Weight 72.12 kg aa5 (R); Height 5 ft. 2 in. (157.48 cm) (R); Pain 9/10; 15:35 BP 148 / 89; Pulse 75; Resp 18; Pulse Ox 100% on R/A; hj 13:35 Body Mass Index 29.08 (72.12 kg, 157.48 cm) aa5 ED Course: 13:20 Patient arrived in ED. mr 13:23 Hannah Sprague FNP-C is [facility]. kb 13:23 Jaron Case MD is Attending Physician. kb 13:34 Triage completed. aa5 13:34 Arm band placed on. aa5 13:37 Beto Adams, RN is Primary Nurse. hj 13:54 Patient has correct armband on for positive identification. Bed in low position. Call hj light in reach. Side rails up X 1. 15:35 No provider procedures requiring assistance completed. Patient did not have IV access hj during this emergency room visit. Administered Medications: 15:10 Drug: Rocephin (cefTRIAXone) 1 grams Route: IM; Site: left gluteus; hj 15:27 Follow up: Response: No adverse reaction hj Outcome: 15:11 Discharge ordered by . kb 15:35 Discharged to home ambulatory. hj 15:35 Condition: stable 15:35 Discharge instructions given to patient, Instructed on discharge instructions, follow up and referral plans. Demonstrated understanding of instructions, follow-up care. 15:47 Patient left the ED. hj Signatures: Hannah Sprague FNP-C FNP-Ckb RiveraDamaris mr ValdezChantell RN RN aa Beto Adams, BRIAN RN
--- NOTE | 2018-10-17 15:12 | EDPHYS ---
Physician Documentation [facility] Name: Keyla Addison Age: 23 yrs Sex: Female : 1995 Arrival Date: 10/17/2018 Time: 13:20 Bed 18 Private MD: ED Physician Jaron Case HPI: 10/17 14:48 This 23 yrs old Female presents to ER via Ambulatory with complaints of kb Abdominal Pain, Back Pain. 14:48 The patient presents with urinary symptoms, dysuria, frequency. Onset: The kb symptoms/episode began/occurred last night. Modifying factors: The symptoms are alleviated by nothing, the symptoms are aggravated by urinating. Associated signs and symptoms: Pertinent positives: dysuria, urinary frequency. Severity of symptoms: At their worst the symptoms were moderate, in the emergency department the symptoms are unchanged. The patient has not experienced similar symptoms in the past. The patient has not recently seen a physician. Pt reports she has had urinary frequency, dysuria and suprapubic pain that radiates to right flank since 2100 last night. Saw armband from [facility] during exam and pt reports she was there this morning. STates she was diagnosed with an infection or inflammation and was given medications, but is still having pain. 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 - Social history:: Smoking status: Patient/guardian denies using tobacco. - Ebola Screening: : No symptoms or risks identified at this time. ROS: 14:45 Constitutional: Negative for fever, chills, and weight loss, Cardiovascular: Negative kb for chest pain, palpitations, and edema, Respiratory: Negative for shortness of breath, cough, wheezing, and pleuritic chest pain, Abdomen/GI: Negative for abdominal pain, nausea, vomiting, diarrhea, and constipation, Back: Negative for injury and pain, MS/Extremity: Negative for injury and deformity, Skin: Negative for injury, rash, and discoloration, Neuro: Negative for headache, weakness, numbness, tingling, and seizure. 14:45 : Positive for urinary symptoms, urinary frequency, burning with urination. Exam: 14:45 Constitutional: This is a well developed, well nourished patient who is awake, alert, kb and in no acute distress. Head/Face: Normocephalic, atraumatic. ENT: Nares patent. No nasal discharge, no septal abnormalities noted. Tympanic membranes are normal and external auditory canals are clear. Oropharynx with no redness, swelling, or masses, exudates, or evidence of obstruction, uvula midline. Mucous membranes moist. Neck: Trachea midline, no thyromegaly or masses palpated, and no cervical lymphadenopathy. Supple, full range of motion without nuchal rigidity, or vertebral point tenderness. No Meningismus. Chest/axilla: Normal chest wall appearance and motion. Nontender with no deformity. No lesions are appreciated. Cardiovascular: Regular rate and rhythm with a normal S1 and S2. No gallops, murmurs, or rubs. Normal PMI, no JVD. No pulse deficits. Respiratory: Lungs have equal breath sounds bilaterally, clear to auscultation and percussion. No rales, rhonchi or wheezes noted. No increased work of breathing, no retractions or nasal flaring. Abdomen/GI: Soft, non-tender, with normal bowel sounds. No distension or tympany. No guarding or rebound. No evidence of tenderness throughout. Skin: Warm, dry with normal turgor. Normal color with no rashes, no lesions, and no evidence of cellulitis. MS/ Extremity: Pulses equal, no cyanosis. Neurovascular intact. Full, normal range of motion. Neuro: Awake and alert, GCS 15, oriented to person, place, time, and situation. Cranial nerves II-XII grossly intact. Motor strength 5/5 in all extremities. Sensory grossly intact. Cerebellar exam normal. Normal gait. 14:45 Abdomen/GI: Palpation: mild abdominal tenderness, in the suprapubic area. 14:45 Back: CVA tenderness, that is mild, is noted on the right. Vital Signs: 13:35 BP 151 / 100; Pulse 77; Resp 18 S; Temp 98.3(O); Pulse Ox 100% on R/A; Weight 72.12 kg aa5 (R); Height 5 ft. 2 in. (157.48 cm) (R); Pain 9/10; 15:35 BP 148 / 89; Pulse 75; Resp 18; Pulse Ox 100% on R/A; hj 13:35 Body Mass Index 29.08 (72.12 kg, 157.48 cm) aa5 MDM: 13:36 Patient medically screened. kb 14:40 Data reviewed: vital signs, nurses notes. Data interpreted: Pulse oximetry: on room air kb is 100 %. Interpretation: normal. Counseling: I had a detailed discussion with the patient and/or guardian regarding: the historical points, exam findings, and any diagnostic results supporting the discharge/admit diagnosis, lab results, the need for outpatient follow up, a family practitioner, to return to the emergency department if symptoms worsen or persist or if there are any questions or concerns that arise at home. 15:08 ED course: received records from [facility]. Pt has 2mm stone in right ureter. Pt kb couldn't remember the name of the antibiotic she was prescribed so I called [facility] to find out. Pt was prescribed keflex, flomax and tylenol with codeine that haven't been picked up yet. Pt educated that she needs to leaf size picker the medications. Verbal understanding received. Pt requests a work note. 10/17 13:36 Order name: Urine Microscopic Only; Complete Time: 14:31 kb 10/17 13:47 Order name: Urine Dipstick--Ancillary (enter results); Complete Time: 14:20 bd 10/17 13:36 Order name: Urine Test (obtain specimen); Complete Time: 13:51 kb 10/17 13:36 Order name: Urine Dipstick-Ancillary (obtain specimen); Complete Time: 13:51 kb 10/17 14:30 Order name: Urine Culture EDMS Administered Medications: 15:10 Drug: Rocephin (cefTRIAXone) 1 grams Route: IM; Site: left gluteus; hj 15:27 Follow up: Response: No adverse reaction hj Disposition: 15:51 Co-signature as Attending Physician, Jaron Case MD. rn Disposition: 10/17/18 15:11 Discharged to Home. Impression: Urinary tract infection, site not specified, Calculus of kidney and ureter. - Condition is Stable. - Discharge Instructions: Kidney Stones, [id number], Urinary Tract Infection, Adult, [id number], Dietary Guidelines to Help Prevent Kidney Stones. - Work release form, Medication Reconciliation Form, Thank You Letter, Antibiotic Education, Prescription Opioid Use form. - Follow up: Emergency Department; When: As needed; Reason: Worsening of condition. Follow up: Private Physician; When: 2 - 3 days; Reason: Recheck today's complaints, Continuance of care, Re-evaluation by your physician. Signatures: Dispatcher [employer] EDHannah Morales, MEDIA SENIOR RECRUITER-C MEDIA SENIOR RECRUITER-Jaron Haider MD MD rn Calderon, Audri, RN RN aa5 Beto Adams RN RN hj Corrections: (The following items were deleted from the chart) 15:29 14:48 Pt reports she has had urinary frequency, dysuria, . kb kb 15:47 15:11 10/17/2018 15:11 Discharged to Home. Impression: Urinary tract infection, site hj not specified; Calculus of kidney and ureter. Condition is Stable. Forms are Medication Reconciliation Form, Thank You Letter, Antibiotic Education, Prescription Opioid Use. Follow up: Emergency Department; When: As needed; Reason: Worsening of condition. Follow up: Private Physician; When: 2 - 3 days; Reason: Recheck today's complaints, Continuance of care, Re-evaluation by your physician. kb
[2018-10-17] MEDS ORDERED: CEFTRIAXONE 1000 MG/VIAL ONE (15:22)
[2018-10-17] MEDS ORDERED: LIDOCAINE 1% MPF 2 ML AMPULE ONE (15:22)
== END 2018-10-17 15:47 | disposition home or self-care (01) ==
LOC: ER 13:15
DX: N39.0 Urinary tract infection, site not specified (principal); N20.2 Calculus of kidney with calculus of ureter
CPT/HCPCS: 81003; 81015; 87086; 87088; 96372; 99283; J2001

== ENCOUNTER 2020-04-21 18:31 | Emergency (ER) | payer SELFPAY ==
--- OUTSIDE RECORDS SUMMARY | 2020-04-21 18:34 | XMS REPORT | Continuity of Care Document ---
:1995 Author Organization [facility] t Address [address] [place] [address] Care Team Providers Name Role Phone Landon Wagner MD Attending Clinician Patrick Estrada MD Attending Clinician Asif Boyer MD Attending Clinician Uriel ARORYO S Attending Clinician Natalie ARROYO M Admitting Clinician Problems This patient has no known problems. Allergies, Adverse Reactions, Alerts This patient has no known allergies or adverse reactions. Medications This patient has no known medications. Procedures This patient has no known procedures. Encounters Start End Encounter Admission Attending Care Care Encounter Source Date/Time Date/Time Type Type Clinicians Facility Department ID 2018-10-20 2018-10-20 Emergency Keturah Wagner [id number] 03:38:33 17:10:00 Torres Estrada [id number] [facility] [id number] 2018-10-18 2018-10-18 Emergency SAHRA Boyer [id number] 20:31:25 23:36:00 [facility] [id number] 2018-10-17 2018-10-17 Emergency MARIA ISABEL Trevino [id number] 05:31:02 08:52:00 Grace Small [id number] [place] [id number] [place] [id number] Results Test Description Test Time Test Comments Results Result Sourc e Comments Urine Culture 2019-05-08 C Urine Added <10,000 cfu/mL 08:53:58 by Coagulase Negative [id number] Staphylococcus ND Urine Drug Screen 2019-05-07 07:41:14 Test Item Value Reference Range Interpretation Comme nts Amphetamine Screen Ur (test code = Negative Negative Amphetamine Screen Ur) Barbiturate Screen Ur (test code = Negative Negative Barbiturate Screen Ur) Benzodiazepines Ur (test code = Negative Negative Benzodiazepines Ur) Cocaine Screen Ur (test code = Negative Negative Cocaine Screen Ur) U Methadone Scr (test code = U Negative Negative Methadone Scr) Opiate Screen Ur (test code = Negative Negative Opiate Screen Ur) U PCP Scrn (test code = U PCP Negative Negative Scrn) Cannabinoid Screen Ur (test code = Negative Negative Cannabinoid Screen Ur) U TCA (test code = U TCA) Negative Negative Th e results of all drug screen tests are only preliminary. Clinical consid eration and professional ju dgment should be applied to any drug of abuse test result, pa rticularly when preliminary pos itive results are obtained. P lease order a separate confir matory test if desired. HCG Qualitative [id number] 07:40:25 Test Item Value Reference Range Interpretation Comments hCG Ur (test code = Negative If the r esult is hCG Ur) "Negative" in p atients suspected to be , recom mend retest with a s ample obtained 48 to 72 hours later, or by ordering a quantitative as say. If the result i s "Borderline" te sting should be repea shelia in 48 to 72 hours. Lot # (test code = [id number] Lot #) Expiration Dt (test N code = Expiration Dt) Neg Control (test Negative code = Neg Control) Pos Control (test Positive code = Pos Control) Internal QC (test Acceptable code = Internal QC) Urinalysis [id number] 07:30:28 Test Item Value Reference Range Interpretation Comments UA WBC (test code = UA WBC) 0-5 0-5 UA RBC (test code = UA RBC) 11-19 0-5 A UA Bacteria (test code = UA Moderate A Bacteria) UA Squam Epithelial (test code = UA 20-29 A Squam Epithelial) Comprehensive Metabolic [id number] 07:28:48 Test Item Value Reference Range Interpretation Comments Sodium Level (test code = Sodium 141.0 mmol/L 135.0-145.0 Level) Potassium Level (test code = 4.2 mmol/L 3.5-5.1 Potassium Level) Chloride Level (test code = 103 mmol/L 98-105 Chloride Level) CO2 (test code = CO2) 25 mmol/L 22-29 Anion Gap (test code = Anion 13 mmol/L 7-16 Gap) BUN (test code = BUN) 12.10 mg/dL 6.00-20.00 Creatinine Level (test code = 0.60 mg/dL 0.50-0.90 Creatinine Level) BUN/Creat Ratio (test code = 20 N BUN/Creat Ratio) Glucose Level (test code = 112 mg/dL 70-115 Glucose Level) Calcium Level (test code = 9.6 mg/dL 8.3-10.5 Calcium Level) Alk Phos (test code = Alk Phos) 80 U/L 35-104 Bilirubin Total (test code = 0.5 mg/dL 0.1-0.9 Bilirubin Total) Albumin Level (test code = 4.6 g/dL 3.5-5.2 Albumin Level) Protein Total (test code = 7.1 g/dL 6.4-8.3 Protein Total) ALT (test code = ALT) 12 U/L 1-33 AST (test code = AST) 20 U/L 1-32 Globulin (test code = Globulin) 2.5 g/dL 2.9-3.1 L A/G Ratio (test code = A/G 1.8 ratio N Ratio) Comprehensive Metabolic [id number] 07:28:48 Test Item Value Reference Range Interpretation Comments Sodium Level (test 141.0 mmol/L 135.0-145.0 code = Sodium Level) Potassium Level 4.2 mmol/L 3.5-5.1 (test code = Potassium Level) Chloride Level (test 103 mmol/L 98-105 code = Chloride Level) CO2 (test code = 25 mmol/L 22-29 CO2) Anion Gap (test code 13 mmol/L 7-16 = Anion Gap) BUN (test code = 12.10 mg/dL 6.00-20.00 BUN) Creatinine Level 0.60 mg/dL 0.50-0.90 (test code = Creatinine Level) BUN/Creat Ratio 20 N (test code = BUN/Creat Ratio) Glucose Level (test 112 mg/dL 70-115 code = Glucose Level) Calcium Level (test 9.6 mg/dL 8.3-10.5 code = Calcium Level) Alk Phos (test code 80 U/L 35-104 = Alk Phos) Bilirubin Total 0.5 mg/dL 0.1-0.9 (test code = Bilirubin Total) Albumin Level (test 4.6 g/dL 3.5-5.2 code = Albumin Level) Protein Total (test 7.1 g/dL 6.4-8.3 code = Protein Total) ALT (test code = 12 U/L 1-33 ALT) AST (test code = 20 U/L 1-32 AST) Globulin (test code 2.5 g/dL 2.9-3.1 L = Globulin) A/G Ratio (test code 1.8 ratio N = A/G Ratio) eGFR AA (test code = >60 N eGFR (e stimated eGFR AA) mL/min/1.73 m2 Glomerular Filtration Rate ) is an estimated va lue, calculated from the patient's serum creatinine usin g the MDRD equation. It is NOT the patient 's actual GFR. The eGFR provides a more clinically usef ul measure of kidn ey disease than se rum creatinine alone.This calculation thea es sex and race in to account, if the information is provided. If th e race is not provided, and t he patient is -Maeve n, multiply by 1.2 12. If sex is not provided, and t he patient is fema le, multiply by 0.7 42. Results for pat ients <18 years of ag e have not been validated by th e MDRD study and should be interpreted wit h caution. eGFR R esult Interpretation: eGFR > or = 60 is in the Normal RangeeGF R < 60 may mean kid cristian diseaseeGFR < 1 5 may mean kidney failure Rang es recommended by the National Kidney Foundation, http://nkdep.ni h.gov Alcohol [id number] 07:28:48 Test Item Value Reference Range Interpretation Comments Ethanol Level (test <0.00 g/dL 0.00-0.01 Intoxica shelia 0.080 g/dL code = Ethanol or more Level) Ethanol Inst (test <0 N code = Ethanol Inst) Comprehensive Metabolic [id number] 07:28:48 Test Item Value Reference Range Interpretation Comments Sodium Level (test 141.0 mmol/L 135.0-145.0 code = Sodium Level) Potassium Level 4.2 mmol/L 3.5-5.1 (test code = Potassium Level) Chloride Level (test 103 mmol/L 98-105 code = Chloride Level) CO2 (test code = 25 mmol/L 22-29 CO2) Anion Gap (test code 13 mmol/L 7-16 = Anion Gap) BUN (test code = 12.10 mg/dL 6.00-20.00 BUN) Creatinine Level 0.60 mg/dL 0.50-0.90 (test code = Creatinine Level) BUN/Creat Ratio 20 N (test code = BUN/Creat Ratio) Glucose Level (test 112 mg/dL 70-115 code = Glucose Level) Calcium Level (test 9.6 mg/dL 8.3-10.5 code = Calcium Level) Alk Phos (test code 80 U/L 35-104 = Alk Phos) Bilirubin Total 0.5 mg/dL 0.1-0.9 (test code = Bilirubin Total) Albumin Level (test 4.6 g/dL 3.5-5.2 code = Albumin Level) Protein Total (test 7.1 g/dL 6.4-8.3 code = Protein Total) ALT (test code = 12 U/L 1-33 ALT) AST (test code = 20 U/L 1-32 AST) Globulin (test code 2.5 g/dL 2.9-3.1 L = Globulin) A/G Ratio (test code 1.8 ratio N = A/G Ratio) eGFR AA (test code = >60 N eGFR (e stimated eGFR AA) mL/min/1.73 m2 Glomerular Filtration Rate ) is an estimated va lue, calculated from the patient's serum creatinine usin g the MDRD equation. It is NOT the patient 's actual GFR. The eGFR provides a more clinically usef ul measure of kidmonica lopez disease than se rum creatinine alone.This calculation thea es sex and race in to account, if the information is provided. If th e race is not provided, and t he patient is -Maeve n, multiply by 1.2 12. If sex is not provided, and t he patient is fema le, multiply by 0.7 42. Results for pat ients <18 years of ag e have not been validated by [facility] MDRD study and should be interpreted wit h caution. eGFR R esult Interpretation: eGFR > or = 60 is in the Normal RangeeGF R < 60 may mean kid cristian diseaseeGFR < 1 5 may mean kidney failure Rang es recommended by the National Kidney Foundation, http://nkdep.ni h.gov eGFR Non-AA (test >60.00 N eGFR (bailey mated code = eGFR Non-AA) mL/min/1.73 m2 Glomer ular Filtration Rate ) is an estimated va lue, calculated from the patient's serum creatinine usin g the MDRD equation. It is NOT the patient 's actual GFR. The eGFR provides a more clinically usef ul measure of kidn ey disease than se rum creatinine alone.This calculation thea es sex and race in to account, if the information is provided. If th e race is not provided, and t he patient is -Maeve n, multiply by 1.2 12. If sex is not provided, and t he patient is fema le, multiply by 0.7 42. Results for pat ients <18 years of ag e have not been validated by [facility] MDRD study and should be interpreted wit h caution. eGFR R esult Interpretation: eGFR > or = 60 is in the Normal RangeeGF R < 60 may mean kid cristian diseaseeGFR < 1 5 may mean kidney failure Rang es recommended by the National Kidney Foundation, http://nkdep.ni h.gov Complete Blood Count with [id number] 07:10:06 Test Item Value Reference Range Interpretation Comments WBC (test code = WBC) 12.0 x10 4.4-10.5 H RBC (test code = RBC) 5.08 x10 3.75-5.20 Hgb (test code = Hgb) 14.2 g/dL 12.2-14.8 MCV (test code = MCV) 86.40 fL 80.00-100.00 Hct (test code = Hct) 43.9 % 36.5-44.4 MCHC (test code = 32.30 g/dL 32.00-37.50 MCHC) RDW CV (test code = 13.9 % 11.5-14.5 RDW CV) MCH (test code = MCH) 28.0 pg 27.0-32.5 Platelets (test code = 275.0 x10 140.0-440.0 Platelets) MPV (test code = MPV) 10.9 fL N Slide Review (test Auto Auto Result cr eated by code = Slide Review) GL_SJM_ SLIDE_REV_AUTO nRBC (test code = 0 N nRBC) NRBC Abs (test code = 0.00 x10 N NRBC Abs) IPF (test code = IPF) 0 % N Automated [id number] 07:10:06 Test Item Value Reference Range Interpretation Comments Neutro Auto (test code = Neutro 79.6 % 36.0-70.0 H Auto) Lymph Auto (test code = Lymph Auto) 12.6 % 12.0-44.0 Frontier Auto (test code = Frontier Auto) 5.9 % 0.0-11.0 Eos, Auto (test code = Eos, Auto) 0.8 % 0.0-7.0 Basophil Auto (test code = Basophil 0.8 % 0.0-2.0 Auto) Neutro Absolute (test code = Neutro 9.5 x10 1.6-7.4 H Absolute) Lymph Absolute (test code = Lymph 1.51 x10 .50-4.60 Absolute) Frontier Absolute (test code = Frontier .71 x10 .00-1.20 Absolute) Eos Absolute (test code = Eos 0.09 x10 0.00-0.74 Absolute) Baso Absolute (test code = Baso 0.09 x10 0.00-0.21 Absolute) IG [id number] 07:10:06 Test Item Value Reference Range Interpretation Comments IG (test code = IG) 0.3 % 0.0-5.0 IG Abs (test code = IG Abs) 0 x10 N Urinalysis with Culture, if [id number] 07:09:55 Test Item Value Reference Range Interpretation Comments UA Color (test code = YELLO Yellow UA Color) UA Appear (test code = CLEAR Clear UA Appear) UA pH (test code = UA 5 N pH) UA Spec Grav (test 1.024 1.001-1.035 code = UA Spec Grav) UA Glucose (test code NEG Negative = UA Glucose) UA Bili (test code = NEG Negative UA Bili) UA Ketones (test code NEG Negative = UA Ketones) UA Blood (test code = 250 cells/mcL Negative A UA Blood) UA Protein (test code NEG Negative = UA Protein) UA Urobilinogen (test 0.2 mg/dL N code = UA Urobilinogen) UA Nitrite (test code NEG Negative = UA Nitrite) UA Leuk Est (test code NEG Negative = UA Leuk Est) UA Micro Ind? (test Indicated Not Indicated A Result created by code = UA Micro Ind?) rule [id number] _IN D
[2020-04-21] MEDS ORDERED: CEFTRIAXONE 500 MG/VIAL ONE (22:20)
--- NOTE | 2020-04-21 22:27 | ER ---
Nurse's Notes [facility] Name: Keyla Addison Age: 25 yrs Sex: Female : 1995 Arrival Date: 04/21/2020 Time: 18:32 Bed 27 Private MD: Diagnosis: Urinary tract infection, site not specified;Vaginitis Presentation: 04/21 18:44 Chief complaint: Patient states: Rash on vaginal area. 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 Coronavirus screen: Client denies travel out of the [place] in the last 14 days. At this time, the client does not indicate any symptoms associated with coronavirus-19. Ebola Screen: Patient negative for fever greater than or equal to 101.5 degrees Fahrenheit, and additional compatible Ebola Virus Disease symptoms Patient denies exposure to infectious person. Patient denies travel to an Ebola-affected area in the 21 days before illness onset. No symptoms or risks identified at this time. Initial Sepsis Screen: Does the patient meet any 2 criteria? No. Patient's initial sepsis screen is negative. Does the patient have a suspected source of infection? No. Patient's initial sepsis screen is negative. Risk Assessment: Do you want to hurt yourself or someone else? Patient reports no desire to harm self or others. Onset of symptoms was April 21, 2020. 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 - Social history:: Smoking status: Patient denies any tobacco usage or history of. Screenin:53 Abuse screen: Denies threats or abuse. Denies injuries from another. Nutritional zb screening: No deficits noted. Tuberculosis screening: No symptoms or risk factors identified. Fall Risk None identified. Assessment: 20:30 General: Appears in no apparent distress. uncomfortable, Behavior is calm, cooperative, zb appropriate for age. Pain: Complains of pain in right labia majora and left labia majora Pain does not radiate. Quality of pain is described as burning, tender, Pain began 2-3 days ago. Is continuous, Alleviated by nothing. Aggravated by sex. Neuro: Level of Consciousness is awake, alert, obeys commands, Oriented to person, place, time, situation. Cardiovascular: Heart tones S1 S2 present Capillary refill < 3 seconds in bilateral fingers Patient's skin is warm and dry. Respiratory: Airway is patent Respiratory effort is even, unlabored, Respiratory pattern is regular, symmetrical. GI: Abdomen is round non-distended, obese, Bowel sounds present X 4 quads. : Vaginal discharge is white, Swelling noted on labia. EENT: No signs and/or symptoms were reported regarding the EENT system. Derm: Skin is intact, is healthy with good turgor, Skin is dry, Skin is normal, Skin temperature is warm. Musculoskeletal: Circulation, motion, and sensation intact. Range of motion: intact in all extremities. Vital Signs: 18:44 BP 152 / 105; Pulse 86; Resp 16 S; Temp 98(TE); Pulse Ox 100% on R/A; Weight 86.64 kg ca1 (R); Height 5 ft. 3 in. (160.02 cm) (R); Pain 0/10; 22:23 BP 140 / 79; Pulse 73; Resp 18; Pulse Ox 100% ; zb 18:44 Body Mass Index 33.83 (86.64 kg, 160.02 cm) ca1 ED Course: 18:32 Patient arrived in ED. as 18:47 Triage completed. ca1 18:48 Arm band placed on right wrist. ca1 20:59 Gomez Hdz MD is Attending Physician. mh7 21:45 Assist provider with pelvic exam: Set up pelvic tray. Performed by Gomez Hdz MD zb Patient tolerated well. 21:50 Lalitha Segovia, BRIAN is Primary Nurse. zb 21:53 Patient has correct armband on for positive identification. Pulse ox on. NIBP on. Door zb closed. Noise minimized. Warm blanket given. 22:25 Cindy Hope MD is Referral Physician. mh7 22:43 Patient did not have IV access during this emergency room visit. ss Administered Medications: 22:11 Drug: Rocephin (cefTRIAXone) 500 mg Route: IM; Site: left gluteus; zb 22:43 Follow up: Response: No adverse reaction ss Outcome: 22:26 Discharge ordered by . carson 22:43 Discharged to home ambulatory. ss 22:43 Condition: good 22:43 Discharge instructions given to patient, family, Instructed on discharge instructions, follow up and referral plans. medication usage, Demonstrated understanding of instructions, follow-up care, medications, Prescriptions given X 3. 22:44 Patient left the ED. ss Signatures: Indy Farnsworth Shelby, RN RN ss Caron Gusman RN RN ca1 Gomez Hdz MD MD mh7 Brown, Zipporah, RN RN zb Corrections: (The following items were deleted from the chart) 18:49 18:48 LMP 03/14/2020 ca1 ca1
--- NOTE | 2020-04-21 22:28 | EDPHYS ---
Physician Documentation [facility] Name: Keyla Addison Age: 25 yrs Sex: Female : 1995 Arrival Date: 04/21/2020 Time: 18:32 Bed 27 Private MD: ED Physician Gomez Hdz HPI: 04/21 21:18 This 25 yrs old Female presents to ER via Ambulatory with complaints of Pain mh7 With Urination. 21:18 The patient presents with urinary symptoms, dysuria, vaginal discharge, that is a mh7 moderate amount of white discharge, patient has not had similar discharge in the past. 21:19 Onset: The symptoms/episode began/occurred 2 day(s) ago. Modifying factors: The mh7 symptoms are alleviated by nothing, the symptoms are aggravated by nothing. Associated signs and symptoms: Pertinent negatives: constipation, cramping, diarrhea, dyspareunia, fever, hematuria, nausea, urinary frequency, vaginal bleeding, vomiting. Severity of symptoms: At their worst the symptoms were mild, 2 day(s) ago, in the emergency department the symptoms are unchanged. The patient is sexually active, reportedly has a single partner, uses protection during intercourse. The patient's method of control includes condom. 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 - Social history:: Smoking status: Patient denies any tobacco usage or history of. ROS: 21:19 Constitutional: Negative for fever, chills, and weight loss, Eyes: Negative for injury, mh7 pain, redness, and discharge, ENT: Negative for injury, pain, and discharge, Neck: Negative for injury, pain, and swelling, Cardiovascular: Negative for chest pain, palpitations, and edema, Respiratory: Negative for shortness of breath, cough, wheezing, and pleuritic chest pain, Abdomen/GI: Negative for abdominal pain, nausea, vomiting, diarrhea, and constipation, Back: Negative for injury and pain, MS/Extremity: Negative for injury and deformity, Skin: Negative for injury, rash, and discoloration, Neuro: Negative for headache, weakness, numbness, tingling, and seizure, Psych: Negative for depression, anxiety, suicide ideation, homicidal ideation, and hallucinations, Allergy/Immunology: Negative for hives, rash, and allergies, Endocrine: Negative for neck swelling, polydipsia, polyuria, polyphagia, and marked weight changes, Hematologic/Lymphatic: Negative for swollen nodes, abnormal bleeding, and unusual bruising. Exam: 21:19 Constitutional: This is a well developed, well nourished patient who is awake, alert, mh7 and in no acute distress. Head/Face: Normocephalic, atraumatic. Eyes: Pupils equal round and reactive to light, extra-ocular motions intact. Lids and lashes normal. Conjunctiva and sclera are non-icteric and not injected. Cornea within normal limits. Periorbital areas with no swelling, redness, or edema. Neck: Trachea midline, no thyromegaly or masses palpated, and no cervical lymphadenopathy. Supple, full range of motion without nuchal rigidity, or vertebral point tenderness. No Meningismus. Chest/axilla: Normal chest wall appearance and motion. Nontender with no deformity. No lesions are appreciated. Cardiovascular: Regular rate and rhythm with a normal S1 and S2. No gallops, murmurs, or rubs. Normal PMI, no JVD. No pulse deficits. Respiratory: Lungs have equal breath sounds bilaterally, clear to auscultation and percussion. No rales, rhonchi or wheezes noted. No increased work of breathing, no retractions or nasal flaring. Abdomen/GI: Soft, non-tender, with normal bowel sounds. No distension or tympany. No guarding or rebound. No evidence of tenderness throughout. Back: No spinal tenderness. No costovertebral tenderness. Full range of motion. Skin: Warm, dry with normal turgor. Normal color with no rashes, no lesions, and no evidence of cellulitis. MS/ Extremity: Pulses equal, no cyanosis. Neurovascular intact. Full, normal range of motion. Neuro: Awake and alert, GCS 15, oriented to person, place, time, and situation. Cranial nerves II-XII grossly intact. Motor strength 5/5 in all extremities. Sensory grossly intact. Cerebellar exam normal. Normal gait. Psych: Awake, alert, with orientation to person, place and time. Behavior, mood, and affect are within normal limits. 22:21 : CVA tenderness, is absent, Pelvic Exam: External exam: excoriation noted, no mh7 appreciated Bartholin's cyst, no erythema, no evidence of foreign body, no lesions, no ulcerations, no warts seen, Speculum exam: no bleeding is noted, os that is closed, no tissue in cervix is seen, no tissue in vagina is seen, bimanual exam reveals no cervical motion tenderness, os that is closed, normal sized uterus, no uterine tenderness, no adnexa tenderness or masses bilaterally, discharge, white, the nurse was present for the exam, Bladder: is normal, non-distended, non-tender, Rectal exam: is refused by patient or guardian. Vital Signs: 18:44 BP 152 / 105; Pulse 86; Resp 16 S; Temp 98(TE); Pulse Ox 100% on R/A; Weight 86.64 kg ca1 (R); Height 5 ft. 3 in. (160.02 cm) (R); Pain 0/10; 22:23 BP 140 / 79; Pulse 73; Resp 18; Pulse Ox 100% ; zb 18:44 Body Mass Index 33.83 (86.64 kg, 160.02 cm) ca1 MDM: 22:21 Differential diagnosis: tamy infection, cervicitis, pelvic inflammatory disease, mh7 urinary tract infection, vaginosis. Data reviewed: vital signs, nurses notes, lab test result(s), urinalysis, UPT: negative. Data interpreted: Pulse oximetry: on room air is 100 %. Interpretation: normal. Counseling: I had a detailed discussion with the patient and/or guardian regarding: the historical points, exam findings, and any diagnostic results supporting the discharge/admit diagnosis, lab results, the need for outpatient follow up, an OB/Gyne specialist, to return to the emergency department if symptoms worsen or persist or if there are any questions or concerns that arise at home. Response to treatment: the patient's symptoms have markedly improved after treatment. 22:26 Patient medically screened. [facility] 04/21 21:11 Order name: Urine Dipstick--Ancillary (enter results) 04/21 21:11 Order name: Urine --Ancillary (enter results) 04/21 21:30 Order name: Urine Culture [facility] 04/21 21:30 Order name: UA MICROSCOPIC [facility] 04/21 21:47 Order name: GC (GONORR/CHLAMYDIA) Probe [facility] 04/21 21:47 Order name: Wet Prep; Complete Time: 22:21 [facility] 04/21 21:11 Order name: Urine Dipstick-Ancillary (obtain specimen); Complete Time: 21:11 04/21 21:11 Order name: Urine Test (obtain specimen); Complete Time: 21:11 Administered Medications: 22:11 Drug: Rocephin (cefTRIAXone) 500 mg Route: IM; Site: left gluteus; zb 22:43 Follow up: Response: No adverse reaction ss Disposition: 04/21/20 22:26 Discharged to Home. Impression: Urinary tract infection, site not specified, Vaginitis. - Condition is Stable. - Discharge Instructions: Urinary Tract Infection, Adult, [id number], Vaginitis, [id number]. - Prescriptions for Pyridium 200 mg Oral Tablet - take 1 tablet by ORAL route every 8 hours for 2 days; 6 tablet. Doxycycline Hyclate 100 mg Oral Tablet - take 1 tablet by ORAL route every 12 hours; 14 tablet. Cipro 500 mg Oral Tablet - take 1 tablet by ORAL route every 12 hours for 7 days; 14 tablet. - Medication Reconciliation Form, Thank You Letter, Antibiotic Education, Prescription Opioid Use form. - Follow up: Private Physician; When: 1 - 2 days; Reason: Worsening of condition, Recheck today's complaints, Continuance of care, Re-evaluation by your physician. Follow up: Cindy Hope MD; When: 1 - 2 days; Reason: Worsening of condition, Recheck today's complaints, Continuance of care. - Problem is new. - Symptoms have improved. Signatures: Dispatcher [employer] EDKeyanna Reyes RN RN Caron Gusman RN RN ca1 Holmes, Maurice, MD MD [facility] Lalitha Segovia RN RN zslick Corrections: (The following items were deleted from the chart) 22:44 22:26 04/21/2020 22:26 Discharged to Home. Impression: Urinary tract infection, site ss not specified; Vaginitis. Condition is Stable. Forms are Medication Reconciliation Form, Thank You Letter, Antibiotic Education, Prescription Opioid Use. Follow up: Private Physician; When: 1 - 2 days; Reason: Worsening of condition, Recheck today's complaints, Continuance of care, Re-evaluation by your physician. Follow up: Cindy Hope; When: 1 - 2 days; Reason: Worsening of condition, Recheck today's complaints, Continuance of care. Problem is new. Symptoms have improved. mh7
[2020-04-21 22:50] VITALS: TEMP 98; O2SAT 100
[2020-04-21 22:56] VITALS: BP 140/79
[2020-04-21 23:19] LABS: Urine Blood 1+ (NEG); Urine Glucose NEGATIVE (NEG); Urine Protein NEGATIVE (NEG); Urine Specific Gravity >1.030 (1.005-1.030); Urine pH 5.5 (5.0-7.0)
[2020-04-21 23:22] LABS: Calcium Oxalate Crystals- Ur FEW (NONE SEEN); Urine Bacteria <20 /HPF (<20); Urine Mucus 3+ /HPF (NONE SEEN)
[2020-04-24 15:29] LABS: C.trachomatis RNA,TMA Not Detected (Not Detected)
== END 2020-04-21 22:44 | disposition home or self-care (01) ==
LOC: ER 18:31
DX: N39.0 Urinary tract infection, site not specified (principal); N76.0 Acute vaginitis
CPT/HCPCS: 81003; 81015; 81025; 87086; 87088; 87210; 87490; 87590; 96372; 99284; J0696

== ENCOUNTER 2021-04-15 06:31 | Emergency (ER) | payer SELFPAY ==
--- OUTSIDE RECORDS SUMMARY | 2021-04-15 06:36 | XMS REPORT | Continuity of Care Document ---
:1995 Author Organization [facility] t Address [address] [place] [address] Care Team Providers Name Role Phone David Arora Attending Clinician Unavailable David Arora Attending Clinician Unavailable Landon Wagner MD Attending Clinician Ganesh ARROYO, M Attending Clinician Rosalind ARROYO, A Attending Clinician Uriel ARROYO, S Attending Clinician David Arora Admitting Clinician Unavailable Ganesh ARROYO, M Admitting Clinician Problems Condition Condition Condition Status Onset Resolution Last Treating Co mments Source Name Details Category Date Date Treatment Clinician Date Intractabl Intractabl Disease Active U nivers e pain e pain 8-22 ity of 00:00: [address] Hip pain, Hip pain, Disease Active Uni vers right right 3-30 ity of 00:00: [address] Knee pain, Knee pain, Disease Active U nivers right right 3-30 ity of 00:00: [address] Allergies, Adverse Reactions, Alerts Allergy Allergy Status Severity Reaction(s) Onset Inactive Treating Comm ents Source Name Type Date Date Clinician No Known Drug Active [facility] Social History Social Habit Start Date Stop Date Quantity Comments Source Sex Assigned At [facility] Medical Branch Alcohol intake [facility] Alcohol Comment 2018-10-20 2018-10-20 social [facility] 00:00:00 00:00:00 [facility] Smoking Status Start Date Stop Date Source Never smoker [facility] Unknown if ever smoked [facility] Medications Ordered Filled Start Stop Current Ordering Indication Dosage Frequency Signature Comments Components Source Medication Medication Date Date Medication? Clinician (SIG) Name Name tamsulosin 2019- Yes .4mg 0.4 mg, Univ ers (FLOMAX) 8-23 Oral, QHS, ity o f capsule 0.4 02:00: First dose [place] mg 00 on [facility] 10/20/18 at Branch 2100, Until Discontinu ed, Routine metroNIDAZO 2018-0 Yes 500mg 500 mg, Un lanie LE (FLAGYL) 8- Oral, BID, it y of tablet 500 13:00: First dose [place] mg 00 on [facility] 10/20/18 at Branch 0800, Until Discontinu ed, Routine
Reason for Anti-Infec tive: Documented Infection< br>Documen shelia Infection Site: Urine
D uration of Therapy: 7 days heparin 2018- Yes 5000U 5,000 Univers injection 8- Units, ity of 5,000 Units 13:00: Subcutaneo [place] 00 us, Q12H, Medical First dose Branch on [facility] 10/20/18 at 0800, Until Discontinu ed, Routine ondansetron 2018- Yes 4mg 4 mg, Slow Univers (ZOFRAN 8- IV Push, ity of (PF)) 10:30: Q6HPRN, [place] injection 4 22 Starting Medi jace mg [facility] 10/20/18 at 0530, Until Discontinu ed, Routine, Nausea and Vomiting (N/V) lactated 2018-0 Yes 1000mL at 150 Unive rs ringers IV 8-22 mL/hr, ity of infusion 10:15: 1,000 mL, [place] 1,000 mL 00 IV Medical Infusion, [place] CONTINUOUS , Starting [facility] 10/20/18 at 0515, Until Discontinu ed, Routine morpHINE 2018- Yes 2mg 2 mg, Slow Uni vers injection 2 - IV Push, ity of mg 10:06: Q6HPRN, [place] 55 Starting Medical Ingrid [place] 10/20/18 at 0506, Until Discontinu ed, Routine, Breakthrou gh Pain (scale 4-10) ketorolac 2019- No 30mg 30 mg, Unive rs (TORADOL) 10-20 Intramuscu ity of injection 10:05: 10:04 lar, [place] 30 mg 11 :11 Q8HPRN, Medical Starting Branch Ingrid 10/20/18 at 0505, Until 10/21/18 at 0504, Routine, Pain (scale 4-6), Pain (scale 7-10)
F aculty member approving Restricted medication : GANESHAPRYL acetaminoph Yes 650mg 650 mg, Un lanie en 10-20 Oral, ity of (TYLENOL) 10:03: Q6HPRN, [place] tablet 650 38 Starting Medic al mg Ingrid Branch 10/20/18 at 0503, Until Discontinu ed, Routine, Pain (scale 1-3) cefTRIAXone 2019- No 1000mg 1,000 mg, Univers (ROCEPHIN) 10-20 IV ity of 1,000 mg in 09:45: 09:22 Piggyback, [place] NaCl 0.9% 00 :00 ONCE, 1 Medical (NS) 50 mL dose, [facility] Bran ch MINI-BAG 10/20/18 at 0445, 50 mL
Reas on for Anti-Infec tive: Documented Infection< br>Documen shelia Infection Site: Urine
D uration of Therapy: 7 days ondansetron 2019- No 4mg 4 mg, Slow Univers (ZOFRAN 10-20 IV Push, ity of (PF)) 09:45: 08:52 ONCE, 1 [place] injection 4 00 :00 dose, Ingrid Med ical mg 10/20/18 at Branch 0445, CHITO morpHINE 2019- No 4mg 4 mg, Slow Un lanie injection 4 10-20 IV Push, ity of mg 09:45: 08:52 ONCE, 1 [place] 00 :00 dose, Ingrid Medical 10/20/18 at Branch 0445, STAT tamsulosin Yes [id number] .4mg Take 1 U nivers 0.4 mg 24 10-20 capsule by ity of hr capsule 00:00: mouth at [place] 00 bedtime. Medical Branch metroNIDAZO 2019- No [id number] 500mg Take 1 Univers LE (FLAGYL) 10-20 tablet by it y of 500 mg 00:00: 04:59 mouth 2 [place] tablet 00 :00 (two) Medical times Branch daily for 14 days. metroNIDAZO 2019- No [id number] 500mg Take 1 Univers LE 500 mg 10-20 tablet by ity of tablet 00:00: 04:59 mouth 2 [place] 00 :00 (two) Medical times [place] daily for 13 doses. ciprofloxac 2019- No [id number] 250mg Take 1 Univers in HCl 10-20 tablet by ity of (CIPRO) 250 00:00: 04:59 mouth 2 [place] mg tablet 00 :00 (two) Medical times [place] daily for 3 days. traMADol 2018- No 50mg 50 mg, Univer s (ULTRAM) 10-19 Oral, ONCE ity of tablet 50 04:45: 03:41 NOW, 1 [place] mg 00 :00 dose, [facility] 10/18/18 at Branch 2345, CHITO cefTRIAXone 2018- No 1000mg 1,000 mg, Univers (ROCEPHIN) 10-19 IV ity of 1,000 mg in 04:45: 04:11 Piggyback, [place] NaCl 0.9% 00 :00 ONCE, 1 Medical (NS) 50 mL dose, [facility] ch MINI-BAG 10/18/18 at 2345, 50 mL
Reas on for Anti-Infec tive: Documented Infection< br>Documen shelia Infection Site: Abdominal< br>Duratio n of Therapy: 7 days lactated 2019- No 1000mL at 999 Univ ers ringers IV 10-19 mL/hr, ity of infusion 02:45: 03:39 1,000 mL, [place] 1,000 mL 00 :00 Intravenou Medic al s, ONCE, 1 Branch dose, Tu 10/18/18 at 2145, Routine ondansetron 2018- No 4mg 4 mg, Slow Univers (ZOFRAN 10-19 IV Push, ity of (PF)) 02:45: 02:37 ONCE, 1 [place] injection 4 00 :00 dose, Tue Med ical mg 10/18/18 at Branch 2145, CHITO morpHINE 2018- Yes 4mg 4 mg, Slow Uni vers injection 4 10-19 IV Push, ity of mg 01:40: Q30MIN [place] 59 PRN, 3 Medical doses, Branch Starting 10/18/18 at 2040, Until Discontinu ed, Routine, Pain (scale 7-10) ondansetron Yes [id number] 4mg Take 1 Univers 4 mg 8-20 tablet by ity of disintegrat 00:00: mouth [place] ing tablet 00 every 8 Medica l (eight) Branch hours as needed for Nausea and Vomiting (N/V). cefdinir 2019- No [id number] 300mg Take 1 Univers 300 mg -10-29 capsule by ity of capsule 00:00: 04:59 mouth 2 [place] 00 :00 (two) Medical times Branch daily for 10 days. ondansetron 2019- No [id number] 4mg Take 1 Univers 4 mg -18 10- tablet by ity of disintegrat 00:00: 00:00 mouth [place] tablet 00 :00 every 8 Medica l (eight) Branch hours as needed for Nausea and Vomiting (N/V). cefdinir 2019- No [id number] 300mg Take 1 Univers 300 mg 8-20 - capsule by ity of capsule 00:00: 00:00 mouth 2 [place] 00 :00 (two) Medical times Branch daily for 10 days. FENTanyl PF 2019- No 50ug 50 mcg, Un lanie (SUBLIMAZE 10-17 Slow IV ity o f (PF)) 14:15: 13:14 Push, [place] injection 00 :00 ONCE, 1 Medical 50 mcg dose, Mon Branch 10/17/18 at 0915, Routine cefTRIAXone 2019- No 1000mg 1,000 mg, Univers (ROCEPHIN) 10-17 IV ity of 1,000 mg in 13:30: 13:06 Piggyback, [place] NaCl 0.9% 00 :00 ONCE, 1 Medical (NS) 50 mL dose, [facility] ch MINI-BAG 10/17/18 at 0830, 50 mL
Reas on for Anti-Infec tive: Documented Infection< br>Documen shelia Infection Site: Urine
D uration of Therapy: 7 days ketorolac 2019- No 30mg 30 mg, Unive rs (TORADOL) 10-17 Slow IV ity of injection 12:15: 11:11 Push, [place] 30 mg 00 :00 ONCE, 1 Medical dose, Mon Branch 10/17/18 at 0715, Routine
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 acetaminoph 2018- Yes [id number] 1{tbl} Take 1 Univers en-codeine 8-19 tablet by ity of (TYLENOL-CO 00:00: mouth [place] DEINE #3) 00 every 6 Medical 300-30 mg (six) Branch tablet hours as needed for Pain (scale 4-6). tamsulosin 2018- Yes [id number] .4mg Take 1 U nivers 0.4 mg 24 8-19 capsule by ity of hr capsule 00:00: mouth at [place] 00 bedtime. Medical Branch ketorolac 2018-0 Yes [id number] 10mg Take 1 Un lanie 10 mg 8-19 tablet by ity of tablet 00:00: mouth [place] 00 every 6 Medical (six) Branch hours as needed for Pain (scale 4-6). acetaminoph 2019- Yes [id number] 1{tbl} Take 1 Univers en-codeine 8-19 tablet by ity of (TYLENOL-CO 00:00: mouth [place] DEINE #3) 00 every 6 Medical 300-30 mg (six) Branch tablet hours as needed for Pain (scale 4-6). tamsulosin 2019-0 Yes [id number] .4mg Take 1 U nivers 0.4 mg 24 8-19 capsule by ity of hr capsule 00:00: mouth at [place] 00 bedtime. Medical Branch cephALEXin 2018-0 2019- No [id number] 500mg Take 1 Univers (KEFLEX) 10-17 capsule by ity of 500 mg 00:00: 04:59 mouth 2 [place] capsule 00 :00 (two) Medical times Branch daily for 7 days. ketorolac 2018- No [id number] 10mg Take 1 U nivers 10 mg 10-17 tablet by ity of tablet 00:00: 00:00 mouth [place] 00 :00 every 6 Medical (six) Branch hours as needed for Pain (scale 4-6). acetaminoph 2019- No [id number] 1{tbl} Take 1 Univers en-codeine 10-17 tablet by ity of (TYLENOL-CO 00:00: 00:00 [place] DEINE #3) 00 :00 every 6 Medical 300-30 mg (six) Branch tablet hours as needed for Pain (scale 4-6). tamsulosin 2018- No [id number] .4mg Take 1 Univers 0.4 mg 24 10-17 capsule by ity of hr capsule 00:00: 00:00 [place] 00 :00 bedtime. Medical Branch cephALEXin 2018- No [id number] 500mg Take 1 Univers (KEFLEX) 10-17 capsule by ity of 500 mg 00:00: 00:00 mouth 2 [place] capsule 00 :00 (two) Medical times [place] daily for 7 days. Vital Signs Vital Name Observation Time Observation Value Comments Source Height/Length 2021-03-18 09:27:21 162.50 cm Measured Height/Length 2021-03-18 09:27:20 162.50 cm Measured Height/Length 2019-05-07 06:02:20 Measured Systolic blood 2018-10-20 20:17:00 121 mm[Hg] Univer sity of pressure [facility] Diastolic blood 2018-10-20 20:17:00 59 mm[Hg] Unive rsity of pressure [facility] Heart rate 2018-10-20 20:17:00 99 /min [facility] Body temperature 2018-10-20 20:17:00 36.89 Starla [facility] 2018-10-20 20:17:00 18 /min [facility] Oxygen saturation in 2018-10-20 20:17:00 99 /min [facility] Arterial blood by [facility] [place] Pulse oximetry Branch Body height 2018-10-20 11:17:00 157.5 cm [facility] [place] [facility] Body weight 2018-10-20 11:17:00 85.957 kg [facility] [place] [facility] BMI 2018-10-20 11:17:00 34.66 kg/m2 [facility] [place] [facility] Systolic blood 2018-10-20 20:17:00 121 mm[Hg] Univer sity of pressure [place] [facility] Diastolic blood 2018-10-20 20:17:00 59 mm[Hg] Unive rsity of pressure [place] [facility] Heart rate 2018-10-20 20:17:00 99 /min [facility] [place] [facility] Body temperature 2018-10-20 20:17:00 36.89 Starla Univ ers[facility] [place] [facility] Respiratory rate 2018-10-20 20:17:00 18 /min Univ ers[facility] [place] [facility] Oxygen saturation in 2018-10-20 20:17:00 99 /min University of Arterial blood by Shopsy jace Pulse oximetry Branch Body height 2018-10-20 11:17:00 157.5 cm [facility] [place] [facility] Body weight 2018-10-20 11:17:00 85.957 kg [facility] [place] [facility] BMI 2018-10-20 11:17:00 34.66 kg/m2 [facility] [place] [facility] Systolic blood 2018-10-19 04:16:49 149 mm[Hg] Univer sity of pressure [place] [facility] Diastolic blood 2018-10-19 04:16:49 108 mm[Hg] Unive rsity of pressure [place] [facility] Heart rate 2018-10-19 04:16:49 80 /min [facility] [place] [facility] Respiratory rate 2018-10-19 04:16:49 18 /min Univ ersity [facility] [place] [facility] Oxygen saturation in 2018-10-19 04:16:49 98 /min University of Arterial blood by [place] [employer] jace Pulse oximetry Branch Body temperature 2018-10-19 01:31:00 36.67 Starla Univ ersity [facility] [place] [facility] Body weight 2018-10-19 01:30:00 76.658 kg [facility] [place] [facility] Systolic blood 2018-10-19 04:16:49 149 mm[Hg] Univer sity of pressure [place] [facility] Diastolic blood 2018-10-19 04:16:49 108 mm[Hg] Unive rsity of pressure [place] [facility] Heart rate 2018-10-19 04:16:49 80 /min [facility] [place] [facility] Respiratory rate 2018-10-19 04:16:49 18 /min Univ ersity [facility] [place] [facility] Oxygen saturation in 2018-10-19 04:16:49 98 /min University of Arterial blood by [facility] [place] Pulse oximetry Branch Body temperature 2018-10-19 01:31:00 36.67 Starla Univ ersity [facility] [place] [facility] Body weight 2018-10-19 01:30:00 76.658 kg [facility] [place] [facility] Systolic blood 2018-10-17 13:48:00 146 mm[Hg] Univer sity of pressure [place] [facility] Diastolic blood 2018-10-17 13:48:00 102 mm[Hg] Unive rsity of pressure [place] [facility] Heart rate 2018-10-17 13:48:00 83 /min [facility] [place] [facility] Respiratory rate 2018-10-17 13:48:00 14 /min Univ ersity [facility] [place] [facility] Oxygen saturation in 2018-10-17 13:48:00 100 /min University of Arterial blood by [facility] [place] Pulse oximetry Branch Body temperature 2018-10-17 10:51:00 37.39 Starla Univ ers[facility] [place] [facility] Body weight 2018-10-17 10:51:00 72.122 kg [facility] [place] [facility] Systolic blood 2018-10-17 13:48:00 146 mm[Hg] Univer sity of pressure [place] [facility] Diastolic blood 2018-10-17 13:48:00 102 mm[Hg] Unive rsity of pressure [place] [facility] Heart rate 2018-10-17 13:48:00 83 /min [facility] [place] [facility] Respiratory rate 2018-10-17 13:48:00 14 /min Univ ersity [facility] [place] [facility] Oxygen saturation in 2018-10-17 13:48:00 100 /min University of Arterial blood by [facility] [place] Pulse oximetry Branch Body temperature 2018-10-17 10:51:00 37.39 Starla Univ ers[facility] [place] [facility] Body weight 2018-10-17 10:51:00 72.122 kg [facility] [place] [facility] Procedures Procedure Date / Time Performing Clinician Source Performed EXTRA TUBE URINE 2018-10-20 13:26:00 Apryl Estrada [facility] PROTHROMBIN TIME / INR 2018-10-20 12:21:00 Eduardo Ornelas [facility] ACTIVATED PARTIAL 2018-10-20 12:21:00 Eduardo Ornelas [facility] THRMPLAS BIJU [facility] GALV ONLY - SYPHILIS 2018-10-20 12:21:00 Eduardo Ornelas [facility] IGG/IGM [facility] PHOSPHORUS 2018-10-20 08:52:00 Eduardo Ornelas [facility] TEST, SERUM 2018-10-20 08:52:00 Keturah Wagner U [facility] HEPATIC FUNCTION PANEL 2018-10-20 08:52:00 Eduardo Ornelas [facility] ([id number]) (ALB,T.PRO,BILI [facility] T,BU/BC,ALT,AST,ALK PHOS) COMP. METABOLIC PANEL 2018-10-20 08:52:00 Keturah Wagner [facility] ([id number]) [facility] CBC WITH DIFFERENTIAL 2018-10-20 08:52:00 Keturah Wagner U [facility] URINALYSIS 2018-10-20 08:52:00 Keturah Wagner [facility] BASIC METABOLIC PANEL 2018-10-19 02:39:00 Joaquin Boyer [facility] (NA, K, CL, CO2, Medical Branch GLUCOSE, BUN, CREATININE, CA) CBC WITH DIFFERENTIAL 2018-10-19 02:39:00 Joaquin Boyer [facility] URINALYSIS 2018-10-19 02:12:[address] [facility] POCT TEST 2018-10-19 02:11:00 Joaquin Boyer [facility] XR KUB 2018-10-19 02:01:[address] [facility] CT ABDOMEN PELVIS WO 2018-10-17 11:21:20 Azra Sanz [facility] CONTRAST [facility] LIPASE 2018-10-17 11:07:00 Azra Sanz [facility] COMP. METABOLIC PANEL 2018-10-17 11:07:00 Azra Sanz [facility] ([id number]) Medical Branch CBC WITH DIFFERENTIAL 2018-10-17 11:07:00 Azra Sanz [facility] URINALYSIS 2018-10-17 11:07:00 Azra Sanz [facility] POCT TEST 2018-10-17 10:59:00 Azra Sanz [facility] NOTICE OF PRIVACY 2018-10-17 10:28:41 Doctor Unassigned, No [facility] PRACTICES Name Medical Branch Encounters Start End Encounter Admission Attending Care Care Encounter Source Date/Time Date/Time Type Type Clinicians Facility Department ID 2019-05-07 2019-05-07 Emergency [facility] [id number] 05:05:00 05:05:00 [facility] 2019-05-07 2019-05-07 Emergency 1 Laura Arora [facility] [id number] 05:05:00 05:05:00 Laura Arora -[id number] [facility] 2018-10-20 2018-10-20 Emergency Keturah Wagner [id number] [facility] 03:38:33 17:10:00 Apryl Estrada [id number] ity of [facility] 4.2.7.2.686 [place] [id number] [facility] 093 Branch 2018-10-20 2018-10-20 Emergency Keturah Wagner [id number] 03:38:33 17:10:00 Apryl Estrada [id number] [facility] [id number] 2018-10-18 2018-10-18 Emergency [place], TRAUMA [id number] Univers 20:31:25 23:36:00 [facility] [id number] it [place] 4[place].2.686 [place] [id number] [facility] 014 Branch 2018-10-18 2018-10-18 Emergency [place], TRAUMA [id number] 20:31:25 23:36:00 [facility] [id number] [id number] 2018-10-17 2018-10-17 [facility] [id number] [facility] 05:31:02 08:52:00 Azra Small [id number] ity of [place] 4.2.7.2.686 [facility] [id number] [facility] 084 Branch 2018-10-17 2018-10-17 [facility] [id number] 05:31:02 08:52:00 Azra [place] [id number] [place] 4.2.7.2.686 [place] [id number] Results Test Description Test Time Test [...] confir matory test if desired. HCG Qualitative [id number] 07:40:25 Test Item Value Reference Range Interpretation [...] 72 hours. Lot # (test code = [id number] N Lot #) Expiration Dt (test N code = Expiration Dt) Neg Control (test Negative code = Neg Control) Pos Control (test Positive code = Pos Control) Internal QC (test Acceptable code = Internal QC) Urinalysis [id number] 07:30:28 Test Item Value Reference Range Interpretation Comments UA WBC (test code = UA WBC) 0-5 0-5 UA RBC (test code = UA RBC) 11-19 0-5 A UA Bacteria (test code = UA Moderate A Bacteria) UA Squam Epithelial (test code = UA 20-29 A Squam Epithelial) Comprehensive Metabolic [id number] 07:28:48 Test Item Value Reference Range Interpretation [...] A/G 1.8 ratio N Ratio) Comprehensive Metabolic [id number] 07:28:48 Test Item Value Reference Range Interpretation [...] the National Kidney Foundation, http://nkdep.ni h.gov Alcohol [id number] 07:28:48 Test Item Value Reference Range Interpretation Comments Ethanol Level (test <0.00 g/dL 0.00-0.01 Intoxica shelia 0.080 g/dL code = Ethanol or more Level) Ethanol Inst (test <0 N code = Ethanol Inst) Comprehensive Metabolic [id number] 07:28:48 Test Item Value Reference Range Interpretation [...] ag e have not been validated by [facility] MDRD study and should be interpreted wit [...] not provided, and t he patient is -Meave n, multiply by 1.2 12. If sex is not provided, and t he patient is fema le, multiply by 0.7 42. Results for pat ients <18 years of ag e have not been validated by [facility] MDRD study and should be interpreted wit h caution. eGFR R esult Interpretation: eGFR > or = 60 is in the Normal RangeeGF R < 60 may mean kid cristian diseaseeGFR < 1 5 may mean kidney failure Rang es recommended by the National Kidney Foundation, http://nkdep.ni h.gov Complete Blood Count with [id number] 07:10:06 Test Item Value Reference Range Interpretation [...] code = IPF) 0 % N Automated [id number] 07:10:06 Test Item Value Reference Range Interpretation Comments Neutro Auto (test code = Neutro 79.6 % 36.0-70.0 H Auto) Lymph Auto (test code = Lymph Auto) 12.6 % 12.0-44.0 [place] Auto (test code = [place] Auto) 5.9 % 0.0-11.0 Eos, Auto (test code = Eos, Auto) 0.8 % 0.0-7.0 Basophil Auto (test code = Basophil 0.8 % 0.0-2.0 Auto) Neutro Absolute (test code = Neutro 9.5 x10 1.6-7.4 H Absolute) Lymph Absolute (test code = Lymph 1.51 x10 .50-4.60 Absolute) [place] Absolute (test code = [place] .71 x10 .00-1.20 Absolute) Eos Absolute (test code = Eos 0.09 x10 0.00-0.74 Absolute) Baso Absolute (test code = Baso 0.09 x10 0.00-0.21 Absolute) IG [id number] 07:10:06 Test Item Value Reference Range Interpretation Comments IG (test code = IG) 0.3 % 0.0-5.0 IG Abs (test code = IG Abs) 0 x10 N Urinalysis with Culture, if [id number] 07:09:55 Test Item Value Reference Range Interpretation [...] UA Micro Ind?) rule GL_SJM_UA_MICRO _IN D GALV ONLY - SYPHILIS [id number] 15:34:00 Test Item Value Reference Range Interpretation Comments Syphilis IgG/IgM (test Non-reactive Non-reactive code = 62745-7) SUZY (test code = SUZY) Non-reactive - No serologic evidence of T. pallidum infection. Cannot exclude incubating or early syphilis. Submit a second specimen in 2-4 weeks if syphilis is clinically suspected.Equivocal - Further testing to follow.Reactive - Further testing to follow. Lab Interpretation (test Normal code = 34159-3) [facility] / [id number] 12:54:00 Test Item Value Reference Range Interpretation Comments PROTIME PATIENT (test See_Comment [Auto mated message] code = 5964-2) The system [employer] generated this result transmitted ref erence range: 10.1 - 1 2.6 Seconds. The re ference range was not u sed to interpret this result as normal/abnor mal. INR (test code = 6301-6) Nor mal INR <1.1; Warfarin Therap eutic range 2.0 to 3. 0 or 2.5 to 3.5, dep ending upon the indica tions. Lab Interpretation (test Normal code = 65004-1) [facility] 12:54:00 Test Item Value Reference Range Interpretation Comments APTT Patient (test code = See_Comment [ Automated message] 3173-2) The system [employer] h generated this result transmitted ref erence range: 26 - 36 Seconds. The re ference range was not u sed to interpret this result as normal/abnor mal. Lab Interpretation (test Normal code = 70249-8) [facility] (23415[facility] (ALB,T.PRO,BILI T,BU/BC,ALT,AST,ALK PHOS)2018-10-20 10:38:00 Test Item Value Reference Range Interpretation Comments TOTAL BILI (test code = 4715249184) 0.3 mg/dL 0.1-1.1 BILI UNCON (test code = 5866108023) 0.0 mg/dL 0.1-1.1 L BILI CONJ (test code = 2877157861) 0.0 mg/dL 0-0.3 T PROTEIN (test code = 5866337108) 6.4 g/dL 6.3-8.2 ALBUMIN (test code = 2391159623) 3.8 g/dL 3.5-5 ALK PHOS (test code = 4581956864) 77 U/L 34-122 ALT(SGPT) (test code = 9758468892) 22 U/L 9-51 AST(SGOT) (test code = 7871280788) 19 U/L 13-40 Lab Interpretation (test code = Abnormal 38984-5) [facility] Center[facility]osph[facility] [id number] 10:38:00 Test Item Value Reference Range Interpretation Comments PHOSPHORUS (test code = 7112834771) 3.3 mg/dL 2.5-5 Lab Interpretation (test code = Normal 19237-5) [facility] Center[facility] Metabolic [id number] 09:19:00 Test Item Value Reference Range Interpretation Comments NA (test code = 138 mmol/L 135-145 5286506202) K (test code = 4.0 mmol/L 3.5-5 5393914192) CL (test code = 104 mmol/L 98-108 3375579699) CO2 TOTAL (test code = 27 mmol/L 23-31 0830437876) AGAP (test code = 2-16 8681588523) BUN (test code = 12 mg/dL 7-23 2783647437) GLUCOSE (test code = 96 mg/dL 70-110 3346589959) CREATININE (test code 0.83 mg/dL 0.5-1.04 = 9282726681) TOTAL BILI (test code 0.3 mg/dL 0.1-1.1 = 7933312520) CALCIUM (test code = 9.3 mg/dL 8.6-10.6 8464483717) T PROTEIN (test code = 6.4 g/dL 6.3-8.2 4654140535) ALBUMIN (test code = 3.8 g/dL 3.5-5 9390078481) ALK PHOS (test code = 77 U/L 34-122 9235220936) ALT(SGPT) (test code = 23 U/L 9-51 3784213968) AST(SGOT) (test code = 20 U/L 13-40 1719887246) eGFR Calculation mL/min/1.73m2 (Non-) (test code = 7855382860) eGFR Calculation mL/min/1.73m2 () (test code = 5520512979) SUZY (test code = SUZY) Association of Glomerular Filtration Rate (GFR) and Staging of Kidney Disease*+ ---------+ --------+ +| GFR (mL/min/1.73 m2)?| With Kidney Damage?|?Without Kidney Damage+ -------+ ------+ ---------+|?>90?|?Stage one?|? Normal?+ --------+ -------+ +|?60-89?|?St age two?|? Decreased GFR? + -+ + ---+|?30-59?|?Stage three?|? Stage three? + -+ + ---+|?15-29?|?Stage four? |? Stage four?+ ------+ -----+ --------+|?<15 (or dialysis)?|?Stage five? |? Stage five?+ ------+ -----+ --------+*Each stage assumes the associated GFR level has been in effect for at least three months.?Stages 1 to 5, with or without kidney disease, indicate chronic kidney disease.Notes: Determination of stages one and two (with eGFR >59mL/min/1.73 m2) requires estimation of kidney damage for at least three months as defined by structural or functional abnormalities of the kidney, manifested by either:Pathological abnormalities or Markers of kidney damage (including abnormalities in the composition of the blood or urine or abnormalities in imaging tests). [facility] Test Item Value Reference Range Interpretation Comments APPEARANCE (test code = Cloudy Clear A 0365948281) COLOR (test code = Yellow Yellow 4704370849) PH (test code = 4.8-8.0 1567778070) SP GRAVITY (test code = 1.003-1.030 5819475729) GLU U QUAL (test code = Normal Normal 3230368869) BLOOD (test code = 2+ Negative A 7230400065) KETONES (test code = 5 mg/dL Negative A 8219384125) PROTEIN (test code = Negative Negative 2887-8) UROBILIN (test code = Normal Normal 7781507765) BILIRUBIN (test code = Negative Negative 2371138501) NITRITE (test code = Negative Negative 6709493922) LEUK JANEY (test code = 500/uL Negative A 8897594328) RBC/HPF (test code = See_Comment H [Autom ated message] 1525927139) The system [employer] generated this result transmitted ref erence range: 0 - 3 HP F. The reference range was not used to int erpret this result as normal/abnormal . WBC/HPF (test code = See_Comment H [Autom ated message] 9143304419) The system [employer] generated this result transmitted ref erence range: 0 - 5 HP F. The reference range was not used to int erpret this result as normal/abnormal . BACTERIA (test code = Negative Negative 7788093201) MUCOUS (test code = Slight Negative LPF A 6928129486) SQ EPITH (test code = See_Comment H [Auto mated message] 9278834198) The system [employer] generated this result transmitted ref erence range: <=2 HPF. The reference range was not used to int erpret this result as normal/abnormal . TRICHOMONA (test code = See_Comment H [Au tomated message] 8783385217) The system ic h generated this result transmitted ref erence range: <=1 HPF. The reference range was not used to int erpret this result as normal/abnormal . Lab Interpretation (test Abnormal code = 28721-8) [facility] WITH [id number] 09:17:00 Test Item Value Reference Range Interpretation Comments WBC (test code = See_Comment H [Automated 2690-2) message] The system which generated this result transmit shelia reference range : 4.30 - 11.10 10*3/?L. The reference range was not used to interpret this result as normal/abnormal . RBC (test code = See_Comment [Automated 789-8) message] The system which generated this result transmit shelia reference range : 3.93 - 5.25 10*6/?L. The reference range was not used to interpret this result as normal/abnormal . HGB (test code = 12.5 g/dL 11.6-15 718-7) HCT (test code = 38.1 % 35.7-45.2 4544-3) MCV (test code = 83.7 fL 80.6-95.5 787-2) MCH (test code = 27.5 pg 25.9-32.8 785-6) MCHC (test code = 32.8 g/dL 31.6-35.1 786-4) RDW-SD (test code = 38.5 fL 39-49.9 L 58764-3) RDW-CV (test code = 12.8 % 12-15.5 788-0) PLT (test code = See_Comment [Automated 777-3) message] The system which generated this result transmit shelia reference range : 166 - 358 10*3/ ?L. The reference range was not u sed to interpret th is result as normal/abnormal . MPV (test code = 10.9 fL 9.5-12.9 47774-7) NRBC/100 WBC (test See_Comment [Automat ed code = 7728051478) message] The system which generated this result transmit shelia reference range : 0.0 - 10.0 /100 WBCs. The reference range was not used to interpret this result as normal/abnormal . NRBC x10^3 (test code <0.01 See_Comment [Auto mated = 5408034518) message] The system which generated this result transmit shelia reference range : 10*3/?L. The reference range was not used to interpret this result as normal/abnormal . GRAN MAT (NEUT) % 77.8 % (test code = 770-8) IMM GRAN % (test code 0.30 % = 6389618416) LYMPH % (test code = 12.1 % 736-9) MONO % (test code = 7.0 % 5905-5) EOS % (test code = 2.4 % 713-8) BASO % (test code = 0.4 % 706-2) GRAN MAT x10^3(ANC) 10.50 10*3/uL 1.88-7.09 H (test code = 0937661414) IMM GRAN x10^3 (test 0.04 10*3/uL 0-0.06 code = 2910867524) LYMPH x10^3 (test code 1.63 10*3/uL 1.32-3.29 = 731-0) MONO x10^3 (test code 0.94 10*3/uL 0.33-0.92 H = 742-7) EOS x10^3 (test code = 0.32 10*3/uL 0.03-0.39 711-2) BASO x10^3 (test code 0.05 10*3/uL 0.01-0.07 = 704-7) Lab Interpretation Abnormal (test code = 59864-9) [facility] [id number] 09:12:00 Test Item Value Reference Range Interpretation Comments PREG SERUM (test code Negative = 7810927190) SUZY (test code = SUZY) Less than 10 IU/L.?If low titer or ectopic is suspected, resubmit specimen in 48-72 hours. [facility] METABOLIC PANEL (NA, K, CL, CO2, GLUCOSE, BUN, CREATININE, CA)2018-10-19 03:13:00 Test Item Value Reference Range Interpretation Comments NA (test code = 138 mmol/L 135-145 0795777770) K (test code = 4.3 mmol/L 3.5-5 5335727178) CL (test code = 103 mmol/L 98-108 2525432222) CO2 TOTAL (test code = 29 mmol/L 23-31 1821237483) AGAP (test code = 2-16 0455927863) BUN (test code = 15 mg/dL 7-23 1911049642) GLUCOSE (test code = 89 mg/dL 70-110 5965931922) CREATININE (test code 0.91 mg/dL 0.5-1.04 = 8233334545) CALCIUM (test code = 9.0 mg/dL 8.6-10.6 3490919950) eGFR Calculation mL/min/1.73m2 (Non-) (test code = 6978707115) eGFR Calculation mL/min/1.73m2 () (test code = 5014371283) SUZY (test code = SUZY) Association of Glomerular Filtration Rate (GFR) and Staging of Kidney Disease*+ ---------+ --------+ +| GFR (mL/min/1.73 m2)?| With Kidney Damage?|?Without Kidney Damage+ -------+ ------+ ---------+|?>90?|?Stage one?|? Normal?+ --------+ -------+ +|?60-89?|?St age two?|? Decreased GFR? + -+ + ---+|?30-59?|?Stage three?|? Stage three? + -+ + ---+|?15-29?|?Stage four? |? Stage four?+ ------+ -----+ --------+|?<15 (or dialysis)?|?Stage five? |? Stage five?+ ------+ -----+ --------+*Each stage assumes the associated GFR level has been in effect for at least three months.?Stages 1 to 5, with or without kidney disease, indicate chronic kidney disease.Notes: Determination of stages one and two (with eGFR >59mL/min/1.73 m2) requires estimation of kidney damage for at least three months as defined by structural or functional abnormalities of the kidney, manifested by either:Pathological abnormalities or Markers of kidney damage (including abnormalities in the composition of the blood or urine or abnormalities in imaging tests). [facility] [id number] 02:56:00 Test Item Value Reference Range Interpretation Comments APPEARANCE (test code = Hazy Clear A 2967097229) COLOR (test code = Daniela Yellow A 4101078168) PH (test code = 4.8-8.0 3507187041) SP GRAVITY (test code = 1.003-1.030 7613711745) GLU U QUAL (test code = Normal Normal 8991428130) BLOOD (test code = 2+ Negative A 8106604067) KETONES (test code = 80 mg/dL Negative A 9640345328) PROTEIN (test code = 100 mg/dL Negative A 2887-8) UROBILIN (test code = 2.0 mg/dL Normal A 6539916674) BILIRUBIN (test code = Negative Negative 5231757551) NITRITE (test code = Positive Negative A 8468461224) LEUK JANEY (test code = 500/uL Negative A 3839094860) RBC/HPF (test code = See_Comment H [Autom ated message] 2154223029) The system [employer] generated this result transmit shelia reference range : 0 - 3 HPF. The refe rence range was not u sed to interpret th is result as normal/abnormal . WBC/HPF (test code = See_Comment H [Autom ated message] 5706038327) The system [employer] generated this result transmit shelia reference range : 0 - 5 HPF. The refe rence range was not u sed to interpret th is result as normal/abnormal . BACTERIA (test code = Few Negative A 5288370506) MUCOUS (test code = Moderate Negative LPF A 9371424127) SQ EPITH (test code = See_Comment H [Auto mated message] 7634438305) The system [employer] generated this result transmit shelia reference range : <=2 HPF. The refere nce range was not u sed to interpret th is result as normal/abnormal . Lab Interpretation (test Abnormal code = 66065-3) [facility] WITH [id number] 02:54:00 Test Item Value Reference Range Interpretation Comments WBC (test code = See_Comment H [Automated 6690-2) message] The system which generated this result transmit shelia reference range : 4.30 - 11.10 10*3/?L. The reference range was not used to interpret this result as normal/abnormal . RBC (test code = See_Comment [Automated 789-8) message] The system which generated this result transmit shelia reference range : 3.93 - 5.25 10*6/?L. The reference range was not used to interpret this result as normal/abnormal . HGB (test code = 12.3 g/dL 11.6-15 718-7) HCT (test code = 37.4 % 35.7-45.2 4544-3) MCV (test code = 82.7 fL 80.6-95.5 787-2) MCH (test code = 27.2 pg 25.9-32.8 785-6) MCHC (test code = 32.9 g/dL 31.6-35.1 786-4) RDW-SD (test code = 38.1 fL 39-49.9 L 82002-0) RDW-CV (test code = 12.7 % 12-15.5 788-0) PLT (test code = See_Comment [Automated 777-3) message] The system which generated this result transmit shelia reference range : 166 - 358 10*3/ ?L. The reference range was not u sed to interpret th is result as normal/abnormal . MPV (test code = 10.9 fL 9.5-12.9 66836-1) NRBC/100 WBC (test See_Comment [Automat ed code = 6886278794) message] The system which generated this result transmit shelia reference range : 0.0 - 10.0 /100 WBCs. The reference range was not used to interpret this result as normal/abnormal . NRBC x10^3 (test code <0.01 See_Comment [Auto mated = 5478499707) message] The system which generated this result transmit shelia reference range : 10*3/?L. The reference range was not used to interpret this result as normal/abnormal . GRAN MAT (NEUT) % 78.8 % (test code = 770-8) IMM GRAN % (test code 1.00 % = 6061942085) LYMPH % (test code = 11.8 % 736-9) MONO % (test code = 6.9 % 5905-5) EOS % (test code = 1.2 % 713-8) BASO % (test code = 0.3 % 706-2) GRAN MAT x10^3(ANC) 12.85 10*3/uL 1.88-7.09 H (test code = 2577180862) IMM GRAN x10^3 (test 0.17 10*3/uL 0-0.06 H code = 5796383391) LYMPH x10^3 (test code 1.92 10*3/uL 1.32-3.29 = 731-0) MONO x10^3 (test code 1.13 10*3/uL 0.33-0.92 H = 742-7) EOS x10^3 (test code = 0.20 10*3/uL 0.03-0.39 711-2) BASO x10^3 (test code 0.05 10*3/uL 0.01-0.07 = 704-7) Lab Interpretation Abnormal (test code = 16987-6) [facility] [id number] 02:32:30 No radiopaque stones are visualized. Chacho Mckeon MD., have reviewed this study and agree with the abovereport.* * * * * * * * ORIGINAL REPORT * * * * * * * *EXAM: XR KUB HISTORY: eval stone progression from CT yesterday COMPARISON: CT abdomen pelvis 10/17/2018 FINDINGS: The bowel gas pattern is unremarkable. No abnormal calcifications or radiopaque stones are identified. No acutebony abnormalities are noted. [facility], Radiant Results Inft User - 10/18/2018 9:34 PM CDT* * * * * * * * ORIGINAL REPORT* * * * * * * *EXAM: XR KUBHISTORY: eval stone progression from CT yesterday COMPARISON: CT abdomen pelvis 10/17/2018FINDINGS:The bowel gas pattern is unremarkable.No abnormal calcifications or radiopaque stones are identified. No acutebony abnormalities are noted.IMPRESSIONNo radiopaque stones are visualized.Priscila Mckeon MD., have reviewed this study and agree with the abovereport.[facility]PO[facility] [id number] 02:11:00 Test Item Value Reference Range Interpretation Comments POCT PREG (test code = 1605) negative On board controls acceptable with present C Line (test code = 3574) POCT PREG LOT # (test code = 3575) [id number] POCT PREG TEST DATE (test 02-29-2020 code = 3576) Lab Interpretation (test code = Normal 67942-3) [facility] 12:15:00 Test Item Value Reference Range Interpretation Comments APPEARANCE (test code = Cloudy Clear A 7035356208) COLOR (test code = Yellow Yellow 9647080164) PH (test code = 4.8-8.0 3630057832) SP GRAVITY (test code = >=1.030 1.003-1.030 9122358474) GLU U QUAL (test code = Negative Negative 6085586929) BLOOD (test code = Moderate Negative A 9648258179) KETONES (test code = Negative Negative 1908861445) PROTEIN (test code = Negative Negative 2887-8) UROBILIN (test code = 0.2 mg/dL See_Comment [Auto mated message] 1210809602) The system [employer] generated this result transmit shelia reference range : 0-1.0 mg/dL. Th e reference range was not used to interpret this result as normal/abnormal . BILIRUBIN (test code = Negative Negative 9490197041) NITRITE (test code = Negative Negative 3297495699) LEUK JANEY (test code = Moderate Negative A 6878538432) RBC/HPF (test code = See_Comment [Autom ated message] 6019208805) The system [employer] generated this result transmit shelia reference range : 0 - 3 HPF. The refe rence range was not u sed to interpret th is result as normal/abnormal . WBC/HPF (test code = See_Comment H [Autom ated message] 9726133073) The system [employer] generated this result transmit shelia reference range : 0 - 5 HPF. The refe rence range was not u sed to interpret th is result as normal/abnormal . BACTERIA (test code = Few Negative A 5718337619) MUCOUS (test code = Slight Negative LPF A 6306014497) SQ EPITH (test code = HPF 6917982001) Lab Interpretation (test Abnormal code = 31338-9) [facility] WITH [id number] 11:39:00 Test Item Value Reference Range Interpretation Comments WBC (test code = See_Comment H [Automated 3490-2) message] The system which generated this result transmit shelia reference range : 4.30 - 11.10 10*3/?L. The reference range was not used to interpret this result as normal/abnormal . RBC (test code = See_Comment [Automated 789-8) message] The system which generated this result transmit shelia reference range : 3.93 - 5.25 10*6/?L. The reference range was not used to interpret this result as normal/abnormal . HGB (test code = 13.2 g/dL 11.6-15 718-7) HCT (test code = 40.4 % 35.7-45.2 4544-3) MCV (test code = 84.5 fL 80.6-95.5 787-2) MCH (test code = 27.6 pg 25.9-32.8 785-6) MCHC (test code = 32.7 g/dL 31.6-35.1 786-4) RDW-SD (test code = 38.9 fL 39-49.9 L 03433-6) RDW-CV (test code = 12.7 % 12-15.5 788-0) PLT (test code = See_Comment [Automated 777-3) message] The system which generated this result transmit shelia reference range : 166 - 358 10*3/ ?L. The reference range was not u sed to interpret th is result as normal/abnormal . MPV (test code = 10.9 fL 9.5-12.9 51229-1) NRBC/100 WBC (test See_Comment [Automat ed code = 3978452783) message] The system which generated this result transmit shelia reference range : 0.0 - 10.0 /100 WBCs. The reference range was not used to interpret this result as normal/abnormal . NRBC x10^3 (test code <0.01 See_Comment [Auto mated = 0230586914) message] The system which generated this result transmit shelia reference range : 10*3/?L. The reference range was not used to interpret this result as normal/abnormal . GRAN MAT (NEUT) % 88.4 % (test code = 770-8) IMM GRAN % (test code 0.50 % = 4350870790) LYMPH % (test code = 5.4 % 736-9) MONO % (test code = 4.9 % 5905-5) EOS % (test code = 0.4 % 713-8) BASO % (test code = 0.4 % 706-2) GRAN MAT x10^3(ANC) 18.35 10*3/uL 1.88-7.09 H (test code = 3488355030) IMM GRAN x10^3 (test 0.11 10*3/uL 0-0.06 H code = 7476501096) LYMPH x10^3 (test code 1.12 10*3/uL 1.32-3.29 L = 731-0) MONO x10^3 (test code 1.02 10*3/uL 0.33-0.92 H = 742-7) EOS x10^3 (test code = 0.08 10*3/uL 0.03-0.39 711-2) BASO x10^3 (test code 0.09 10*3/uL 0.01-0.07 H = 704-7) Lab Interpretation Abnormal (test code = 97293-7) [facility]. METABOLIC PANEL (92441)2018-10-17 11:36:00 Test Item Value Reference Range Interpretation Comments NA (test code = 142 mmol/L 135-145 0122898901) K (test code = 4.0 mmol/L 3.5-5 2958288025) CL (test code = 107 mmol/L 98-108 4590933311) CO2 TOTAL (test code = 22 mmol/L 23-31 L 9471258166) AGAP (test code = 2-16 1663168237) BUN (test code = 21 mg/dL 7-23 3005941534) GLUCOSE (test code = 104 mg/dL 70-110 3237654876) CREATININE (test code = 0.90 mg/dL 0.5-1.04 5183512897) TOTAL BILI (test code = 0.4 mg/dL 0.1-1.8 5404925674) CALCIUM (test code = 9.5 mg/dL 8.6-10.6 6193572508) T PROTEIN (test code = 7.9 g/dL 6.3-8.2 0706674619) ALBUMIN (test code = 4.7 g/dL 3.5-5 3543989627) ALK PHOS (test code = 118 U/L 34-122 3387127914) ALT(SGPT) (test code = 22 U/L 9-51 6251343103) AST(SGOT) (test code = 29 U/L 13-40 2935022529) eGFR Calculation mL/min/1.73m2 (Non-) (test code = 5155138059) eGFR Calculation mL/min/1.73m2 () (test code = 1780355887) SUZY (test code = SUZY) Association of Glomerular Filtration Rate (GFR) and Staging of Kidney Disease*+ + + +| GFR (mL/min/1.73 m2)?| With Kidney Damage?|?Without Kidney Damage+ --------+ --------+ +|?>90?|?S tage one?|? Normal?+ ---------+ ---------+ +|?60-89? |?Stage two?|? Decreased GFR? + --+ --+ ------+|?30-59?|?Stage three?|? Stage three? + --+ --+ ------+|?15-29?|?Stage four? |? Stage four?+ -------+ -------+ +|?<15 (or dialysis)?|?Stage five? |? Stage five?+ -------+ -------+ +*Each stage assumes the associated GFR level has been in effect for at least three months.?Stages 1 to 5, with or without kidney disease, indicate chronic kidney disease.Notes: Determination of stages one and two (with eGFR >59mL/min/1.73 m2) requires estimation of kidney damage for at least three months as defined by structural or functional abnormalities of the kidney, manifested by either:Pathological abnormalities or Markers of kidney damage (including abnormalities in the composition of the blood or urine or abnormalities in imaging tests). Lab Interpretation Abnormal (test code = 77249-2) [facility] 11[facility]36:00 Test Item Value Reference Range Interpretation Comments LIPASE (test code = 2285020341) 71 U/L 0-220 Lab Interpretation (test code = Normal 81166-9) [facility] WO [id number] 11:35:31 1. 2 mm stone located in the distal right ureter just proximal to the UVJproduces mild?hydroureteronephrosis. There is mild?periureteral andperinephric edematous changes. 2. Additional punctate calyceal stone at the inferior pole of the rightkidney. RL: [id number] ORDERING PHYSICIAN: AZRA SANZ CLINICAL HISTORY: Flank pain, stone disease suspected RLQ/RIGHT FLANK PAIN TECHNIQUE: CT of theabdomen and pelvis was performed withoutadministration of intravenous contrast. CT was performed according to ALARA(as low as reasonably achievable) principle. COMPARISON: none FINDINGS: The included lung bases are clear without evidence of pulmonary nodules ormasses. The cardiac silhouette is nonenlarged without evidence ofpericardial or pleural effusions. Evaluation of the abdominal solid organs islimited without administrationof intravenous contrast. The liver, spleen, pancreas , gallbladder andadrenal glands are normal in appearance. There is an 2 mm stone located in the distal right ureter just proximal tothe UVJ which produces mild?hydroureteronephrosis. There is mild periureteral and perinephric edematous changes. The right?ureter isunremarkable. Additional punctate calyceal stone at the inferior pole theright kidney. Otherwise the kidneys are normal in appearance withoutevidence of focal mass lesions or cysts. The stomach, small bowel and colon demonstrate appropriate course andcaliberwithout evidence of focal strictures or wall thickening. Theappendix is surgically absent. No evidence of pathologic lymphadenopathy, free intraperitoneal air orfluid is present. The urinary bladder, uterus and adnexa are unremarkable. The aorta isnondilated. No acute osseous abnormalities are identified. [facility], Radiant Results Inft User - 10/17/2018 6:37 AM CDTORDERING PHYSICIAN: AZRA SANZ CLINICAL HISTORY: Flank pain, stone disease suspected RLQ/RIGHT FLANK PAIN TECHNIQUE: CT of the abdomen and pelvis was performed withoutadministration of intravenous contrast. CT was performed according toALARA(as low as reasonably achievable) principle.COMPARISON: noneFINDINGS:The included lung bases are clear without evidence of pulmonary nodules ormasses. The cardiac silhouette is nonenlarged withoutevidence ofpericardial or pleural effusions.Evaluation of the abdominal solid organs is limited without administrationof intravenous contrast. The liver, spleen, pancreas , gallbladder andadrenal glands are normal in appearance.There is an 2 mm stone located in the distal right ureter just proximal tothe UVJ which produces mild hydroureteronephrosis. There is mild periureteral and perinephric edematous changes. The right ureter isunremarkable. Additional punctate calyceal stone at the inferior pole theright kidney. Otherwise the kidneys are normal in appearance withoutevidence of focal mass lesions or cysts.The stomach, small bowel and colon demonstrate appropriate course andcaliber without evidence of focal strictures or wall thickening. Theappendix is surgically absent.No evidence of pathologic lymphadenopathy, free intraperitoneal air orfluid is present.The urinary bladder, uterus and adnexa are unremarkable. The aorta isnondilated.No acute osseous abnormalities are identified.IMPRESSION1.2 mm stone located in the distal right ureter just proximal to the UVJproduces mild hydroureteronephrosis. There is mild periureteral andperinephric edematous changes. 2. Additional punctate calyceal stone at the inferior pole of the rightkidney.RL: [id number]. Luke's Health [facility] LufkinPOCT [id number] 10:59:00 Test Item Value Reference Range Interpretation Comments POCT PREG (test code = 1605) negative On board controls acceptable with present C Line (test code = 3574) POCT PREG LOT # (test code = 3575) [id number] POCT PREG TEST DATE (test 2020-02-29 code = 3576) Lab Interpretation (test code = Normal 76527-4) [facility]
[2021-04-15 07:10] LABS: Urine Blood Trace-intact (Negative); Urine Glucose Negative (Negative); Urine Protein Negative (Negative); Urine Specific Gravity >=1.030 (1.005-1.030); Urine pH 5.5 (5.0-7.0)
[2021-04-15] MEDS ORDERED: NA CHLORIDE 0.9% 1,000 ML ONE (07:12)
[2021-04-15] MEDS ORDERED: KETOROLAC 30 MG/ML INJ ONE (07:12)
[2021-04-15 07:23] LABS: Urine Specific Gravity/Preg >1.030 (1.005-1.030)
[2021-04-15 07:35] LABS: Absolute Lymphocytes (CBC) 1.5 K/uL (0.7-4.9); Hematocrit 40.8 % (36.0-45.0); Lymphocytes % 18.5 % (15.3-44.8); MPV 8.1 fL (7.6-11.3); RBC Red Blood Cell Count 4.67 M/uL (3.86-4.86)
[2021-04-15 07:55] LABS: Urine Bacteria <20 /HPF (<20); Urine Mucus 3+ /HPF (NONE SEEN); Urine RBC NONE SEEN /HPF (NONE SEEN)
[2021-04-15 07:58] LABS: ALT/SGPT 53 U/L (12-78); AST/SGOT 35 U/L (15-37); Albumin 3.8 g/dL (3.4-5.0); Alkaline Phosphatase 94 U/L (45-117); BUN Blood Urea Nitrogen 14 mg/dL (7-18); Bicarbonate 22 mmol/L (21-32); Bilirubin Direct 0.1 mg/dL (0-0.2); Bilirubin Total 0.4 mg/dL (0.2-1.0); Glucose Level 87 mg/dL (74-106); Lipase 61 U/L (73-393); Potassium 3.3 mmol/L (3.5-5.1); Protein, Total 7.5 g/dL (6.4-8.2); Sodium Level 139 mmol/L (136-145)
--- NOTE | 2021-04-15 08:36 | RAD REPORT ---
EXAM DESCRIPTION: CT - Abdomen Pelvis W Contrast - 04/15/2021 8:04 am CLINICAL HISTORY: left lower abdomen pain COMPARISON: Stone Protocol dated 09/30/2017 TECHNIQUE: Biphasic, helical CT imaging of the abdomen and pelvis was performed following 100 ml non -ionic IV contrast. No oral contrast administered. All CT scans are performed using dose optimization technique as appropriate and may include automated exposure control or mA/KV adjustment according to patient size. FINDINGS: No suspicious findings in the lung bases. The liver, spleen, and pancreas show no suspicious findings. Gallbladder and biliary tree are also wi thout suspicious finding. Symmetric renal function is seen with no hydronephrosis or suspicious renal mass. No pyelonephritis o r acute parenchymal process. Tightly contracted urinary bladder shows no suspicious finding. Uterus a nd ovaries show no suspicious findings. A 17 millimeter right ovarian cyst is present with an additio nal 12 mm cyst. No suspicious characteristics. No adrenal abnormalities. No dilated bowel loops or bowel wall thickening. Appendix is not identified matching the appendectomy history. In the left anterior distal rectal wall a 12 millimeter rounded low-density focus is presen t with no similar finding elsewhere in the colon. This was not clearly seen on the 2018 study. This c ould be a rectal wall polyp or focal area of inflammatory change. This is probably not acute given th e history of left-sided pain rather than perianal or perirectal pain. No free air, free fluid or inflammatory stranding. No hernia, mass or bulky lymphadenopathy. No suspicious bony findings. IMPRESSION: Contrast enhanced CT abdomen and pelvis showing no acute or emergent finding. Nonacute findings detailed in the body of the report.
--- NOTE | 2021-04-15 09:01 | EDPHYS ---
Physician Documentation [facility] Name: Keyla Addison Age: 26 yrs Sex: Female : 1995 Arrival Date: 04/15/2021 Time: 06:33 Bed 23 Private MD: ED Physician Jaron Case HPI: 04/15 07:05 This 26 yrs old Female presents to ER via Ambulatory with complaints of cp Abdominal Pain, Nausea. 07:05 The patient presents with abdominal pain left lower abdomen. Onset: The cp symptoms/episode began/occurred last night. The symptoms do not radiate. Associated signs and symptoms: Pertinent positives: diarrhea, nausea, Pertinent negatives: blood in stools, constipation, dysuria, fever, vomiting. The symptoms are described as sharp. 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 - Social history:: Smoking status: Patient denies any tobacco usage or history of. Patient/guardian denies using street drugs, IV drugs. ROS: 07:10 Constitutional: Negative for body aches, chills, fever, poor PO intake. cp 07:10 Abdomen/GI: Positive for abdominal pain, nausea, diarrhea, Negative for vomiting, cp constipation, black/tarry stool, rectal bleeding. 07:10 Cardiovascular: Negative for chest pain. cp 07:10 ENT: Negative for drainage from ear(s), ear pain, sore throat, difficulty swallowing, cp difficulty handling secretions. 07:10 Respiratory: Negative for cough, shortness of breath, wheezing. 07:10 Back: Negative for pain at rest, pain with movement, radiated pain. 07:10 : Negative for urinary symptoms. 07:10 Neuro: Negative for altered mental status, headache, weakness. 07:10 All other systems are negative. Exam: 07:15 Constitutional: The patient appears in no acute distress, alert, awake, non-toxic, well cp developed, well nourished. 07:15 Head/Face: Normocephalic, atraumatic. cp 07:15 Eyes: Periorbital structures: appear normal, Conjunctiva: normal, no exudate, no injection, Sclera: no appreciated abnormality, Lids and lashes: appear normal, bilaterally. 07:15 ENT: External ear(s): are unremarkable, Nose: is normal, Mouth: Lips: moist, Oral mucosa: moist, Posterior pharynx: Airway: no evidence of obstruction, patent. 07:15 Chest/axilla: Inspection: normal. 07:15 Cardiovascular: Rate: normal, Rhythm: regular. 07:15 Respiratory: the patient does not display signs of respiratory distress, Respirations: normal, no use of accessory muscles, no retractions, labored breathing, is not present, Breath sounds: are clear throughout, no decreased breath sounds, no stridor, no wheezing. 07:15 Abdomen/GI: Inspection: abdomen appears normal, Bowel sounds: active, all quadrants, Palpation: soft, in all quadrants, moderate abdominal tenderness, in the left lower quadrant, rebound tenderness, is not appreciated, voluntary guarding, is not appreciated, involuntary guarding, is not appreciated. 07:15 Back: pain, is absent, ROM is normal. 07:15 Neuro: Orientation: to person, place \T\ time. Mentation: is normal. Vital Signs: 06:46 BP 133 / 98; Pulse 87; Resp 20; Temp 97.9(O); Pulse Ox 100% on R/A; Weight 90.72 kg; st1 Height 5 ft. 4 in. (162.56 cm); Pain 5/10; 07:30 BP 119 / 58; Pulse 79; Resp 16; Pulse Ox 99% ; bp 09:05 BP 125 / 81; Pulse 62; Resp 16; Pulse Ox 100% ; bp 06:46 Body Mass Index 34.33 (90.72 kg, 162.56 cm) st1 MDM: 06:56 Patient medically screened. anup 07:30 Differential diagnosis: bowel obstruction, diverticulitis, gastritis, non-specific abd cp pain, Pelvic Inflammatory Disease, Pyelonephritis, Ureterolithiasis, urinary tract infection. 08:57 Data reviewed: vital signs, nurses notes, lab test result(s), radiologic studies, CT cp scan. Response to treatment: the patient's symptoms have markedly improved after treatment, and as a result, I will discharge patient. ED course: Vital signs stable. Nausea and pain markedly improved. Patient resting comfortably in exam room. Discussed results of CT showing 12 mm round, low-density focus in the left anterior distal rectal wall. Will discharge to home for continued monitoring and recommend GI follow-up for the incidental finding on CT. 04/15 07:02 Order name: Basic Metabolic Panel; Complete Time: 08:00 cp 04/15 08:00 Interpretation: Normal except: K 3.3; CL 112. cp 04/15 07:02 Order name: CBC with Diff; Complete Time: 07:53 cp 04/15 07:53 Interpretation: Normal except: MCV 87.3. cp 04/15 07:02 Order name: Hepatic Function; Complete Time: 08:00 cp 04/15 08:00 Interpretation: Normal except: GLOB 3.7; A/G 1.0. cp 04/15 07:02 Order name: Lipase; Complete Time: 08:00 cp 04/15 07:02 Order name: Urine Microscopic Only; Complete Time: 08:00 cp 04/15 08:00 Interpretation: Normal except: SQEPI 10-20; MUCUS 3+. cp 04/15 07:09 Order name: Urine Dipstick-Ancillary; Complete Time: 07:53 EDMS 04/15 07:02 Order name: IV Saline Lock; Complete Time: 07:38 cp 04/15 07:02 Order name: Labs collected and sent; Complete Time: 07:38 cp 04/15 07:02 Order name: CT Abd/Pelvis - IV Contrast Only; Complete Time: 08:38 cp 04/15 07:12 Order name: Urine --Ancillary (enter results); Complete Time: 07:53 bd 04/15 07:02 Order name: Urine Dipstick-Ancillary (obtain specimen); Complete Time: 07:38 cp 04/15 07:02 Order name: Urine Test (obtain specimen); Complete Time: 07:38 cp Administered Medications: 07:25 Drug: NS 0.9% 1000 ml Route: IV; Rate: 1 bolus; Site: right forearm; bp 09:05 Follow up: IV Status: Completed infusion; IV Intake: 1000ml bp 07:25 Drug: Ketorolac 15 mg Route: IVP; Site: right forearm; bp 09:05 Follow up: Response: Pain is decreased bp 07:30 Drug: Zofran (Ondansetron) 4 mg Route: IVP; Site: right forearm; bp 09:05 Follow up: Response: Nausea is decreased bp 09:05 Drug: Potassium Effervescent Tablet 50 mEq Route: PO; bp 09:05 Follow up: Response: No adverse reaction bp Disposition: 11:40 Co-signature as Attending Physician, Jaron Case MD I agree with the assessment and rn plan of care. Attestation: The patient's history, exam findings, diagnostics, and a summary of any interventions or procedures was reviewed in detail with Charan ZAVALA. Disposition Summary: 04/15/21 09:00 Discharge Ordered Location: Home cp Problem: new cp Symptoms: have improved cp Condition: Stable cp Diagnosis - Nausea cp - Diarrhea, unspecified cp Followup: cp - With: Brady Bey MD - When: 1 week - Reason: mass of distal rectal wall Discharge Instructions: - Discharge Summary Sheet cp - Food Choices to Help Relieve Diarrhea, Adult cp - Diarrhea, Adult cp - Nausea, Adult cp Forms: - Medication Reconciliation Form cp - Thank You Letter cp - Antibiotic Education cp - Prescription Opioid Use cp - Work release form bd Prescriptions: - Zofran 4 mg Oral Tablet - take 1 tablet by ORAL route every 12 hours As needed; 20 tablet; Refills: 0, cp Product Selection Permitted Signatures: Dispatcher [employer] EDCharan Javed MD MD cha Nieto, Roman, MD MD rn Page, Corey, PA PA cp Peltier, Brian, RN RN Etta Covington RN RN st1
--- NOTE | 2021-04-15 09:01 | ER ---
Nurse's Notes [facility] Name: Keyla Addison Age: 26 yrs Sex: Female : 1995 Arrival Date: 04/15/2021 Time: 06:33 Bed 23 Private MD: Diagnosis: Nausea;Diarrhea, unspecified Presentation: 04/15 06:46 Chief complaint: Patient states: abdominal pain to the left lower quadrant with nausea st1 and diarrhea since 0200 this am. Patient denies vomiting. Coronavirus screen: Vaccine status: Patient reports being unvaccinated. Client denies travel out of the [place] in the last 14 days. Ebola Screen: No symptoms or risks identified at this time. Initial Sepsis Screen: Does the patient meet any 2 criteria? No. Patient's initial sepsis screen is negative. Does the patient have a suspected source of infection? No. Patient's initial sepsis screen is negative. Risk Assessment: Do you want to hurt yourself or someone else? Patient reports no desire to harm self or others. Onset of symptoms was April 15, 2021. 06:46 Method Of Arrival: Ambulatory st1 06:46 Acuity: EUGENIA 3 st1 Triage Assessment: 06:49 General: Appears in no apparent distress. uncomfortable, obese, well groomed, well st1 developed, Behavior is calm, cooperative. Pain: Complains of pain in abdomen-left upper quadrant. GI: Reports upper abdominal pain, diarrhea. 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 - Social history:: Smoking status: Patient denies any tobacco usage or history of. Patient/guardian denies using street drugs, IV drugs. Screenin:53 Abuse screen: Denies threats or abuse. Nutritional screening: No deficits noted. st1 Tuberculosis screening: No symptoms or risk factors identified. Fall Risk None identified. No fall in past 12 months (0 pts). No secondary diagnosis (0 pts). IV access (20 points). Ambulatory Aid- None/Bed Rest/Nurse Assist (0 pts). Gait- Normal/Bed Rest/Wheelchair (0 pts) Mental Status- Oriented to own ability (0 pts). Total Enriquez Fall Scale indicates No Risk (0-24 pts). Assessment: 06:57 General: SEE TRIAGE NOTE. bp 07:59 Reassessment: PT TO CT. bp 09:06 Reassessment: PT D/C HOME AMBULATORY, DX WITH NAUSEA AND DIARRHEA. bp 09:07 GI: Bowel sounds present X 4 quads. Abd is soft X 4 quads. bp Vital Signs: 06:46 BP 133 / 98; Pulse 87; Resp 20; Temp 97.9(O); Pulse Ox 100% on R/A; Weight 90.72 kg; st1 Height 5 ft. 4 in. (162.56 cm); Pain 5/10; 07:30 BP 119 / 58; Pulse 79; Resp 16; Pulse Ox 99% ; bp 09:05 BP 125 / 81; Pulse 62; Resp 16; Pulse Ox 100% ; bp 06:46 Body Mass Index 34.33 (90.72 kg, 162.56 cm) st1 ED Course: 06:33 Patient arrived in ED. ja2 06:48 Triage completed. st1 06:49 Arm band placed on left wrist. st1 06:53 Patient has correct armband on for positive identification. st1 06:56 Charan Miller PA is PHCP. cp 06:56 Charan Castle MD is Attending Physician. cp 06:56 Norman Yu, BRIAN is Primary Nurse. bp 07:25 Jaron Case MD is Attending Physician. cp 07:25 Inserted saline lock: 22 gauge in right forearm, using aseptic technique. Blood bp collected. 08:04 CT Abd/Pelvis - IV Contrast Only In Process Unspecified. EDMS 08:58 Brady Bey MD is Referral Physician. cp 09:06 No provider procedures requiring assistance completed. IV discontinued, intact, bp bleeding controlled, No redness/swelling at site. Pressure dressing applied. Administered Medications: 07:25 Drug: NS 0.9% 1000 ml Route: IV; Rate: 1 bolus; Site: right forearm; bp 09:05 Follow up: IV Status: Completed infusion; IV Intake: 1000ml bp 07:25 Drug: Ketorolac 15 mg Route: IVP; Site: right forearm; bp 09:05 Follow up: Response: Pain is decreased bp 07:30 Drug: Zofran (Ondansetron) 4 mg Route: IVP; Site: right forearm; bp 09:05 Follow up: Response: Nausea is decreased bp 09:05 Drug: Potassium Effervescent Tablet 50 mEq Route: PO; bp 09:05 Follow up: Response: No adverse reaction bp Intake: 09:05 IV: 1000ml; Total: 1000ml. bp Outcome: 09:00 Discharge ordered by MD. eduardo 09:06 Discharged to home ambulatory. bp 09:06 Condition: stable 09:06 Discharge instructions given to patient, Instructed on discharge instructions, follow up and referral plans. medication usage, Demonstrated understanding of instructions, follow-up care, medications, Prescriptions given X 1. 09:13 Patient left the ED. bp Signatures: Dispatcher [employer] EDMS Charan Miller PA PA cp Peltier, Brian, RN RN Betty Hayes Shellie, BRIAN RN st1 Corrections: (The following items were deleted from the chart) 06:51 06:46 Chief complaint: Patient states: abdominal pain to the right lower quadrant with st1 nausea and diarrhea since 0200 this am. Patient denies vomiting, st1
[2021-04-15] MEDS ORDERED: ONDANSETRON 4 MG/2 ML VIAL ONE (09:03)
[2021-04-15] MEDS ORDERED: POTASSIUM 25 MEQ EFFERV TAB ONE (09:04)
[2021-04-15 09:20] VITALS: TEMP 97.9
[2021-04-15 09:22] VITALS: BP 125/81; O2SAT 100
== END 2021-04-15 09:13 | disposition home or self-care (01) ==
LOC: ER 06:31
DX: R19.7 Diarrhea, unspecified (principal)
CPT/HCPCS: 36415; 74177; 80048; 80076; 81003; 81015; 81025; 83690; 85025; 96361; 96374; 96375; 99284; J2405; J7030; Q9967

== ENCOUNTER 2021-05-16 01:46 | Emergency (ER) | payer SELFPAY ==
--- OUTSIDE RECORDS SUMMARY | 2021-05-16 01:50 | XMS REPORT | Continuity of Care Document ---
:1995 Author Organization [facility] t Address [address] [place] [address] Care Team Providers Name Role Phone David [...] pain e pain 8-22 ity of 00:00: [address] Hip pain, Hip pain, Disease Active Uni vers right right 3-30 ity of 00:00: [address] Knee pain, Knee pain, Disease Active U nivers right right 3-30 ity of 00:00: [address] Allergies, Adverse Reactions, Alerts Allergy Allergy Status Severity Reaction(s) Onset Inactive Treating Comm ents Source Name Type Date Date Clinician No Known Drug Active [facility] Social History Social Habit Start Date Stop Date Quantity Comments Source Sex Assigned At [facility] Alcohol intake [facility] Alcohol Comment 2018-10-20 2018-10-20 social [facility] 00:00:00 00:00:00 [facility] Smoking Status Start Date Stop Date Source Never smoker [facility] Unknown if ever smoked [facility] Medications Ordered Filled Start Stop Current Ordering Indication Dosage Frequency Signature Comments Components Source Medication Medication Date Date Medication? Clinician (SIG) Name Name tamsulosin 2019- Yes .4mg 0.4 mg, Univ ers (FLOMAX) 8-23 Oral, QHS, ity o f capsule 0.4 02:00: First dose [place] mg 00 on [facility] 10/20/18 at Branch 2100, Until Discontinu ed, Routine metroNIDAZO 2018-0 Yes 500mg 500 mg, Un lanie LE (FLAGYL) 8- Oral, BID, it y of tablet 500 13:00: First dose [place] mg 00 on [facility] 10/20/18 at Branch 0800, Until Discontinu ed, Routine
Reason for Anti-Infec tive: Documented Infection< br>Documen shelia Infection Site: Urine
D uration of Therapy: 7 days heparin 2018- Yes 5000U 5,000 Univers injection 8- Units, ity of 5,000 Units 13:00: Subcutaneo [place] 00 us, Q12H, Medical First dose Branch on [facility] 10/20/18 at 0800, Until Discontinu ed, Routine ondansetron 2018- Yes 4mg 4 mg, Slow Univers (ZOFRAN 8- IV Push, ity of (PF)) 10:30: Q6HPRN, [place] injection 4 22 Starting Medi jace mg [facility] 10/20/18 at 0530, Until Discontinu ed, Routine, Nausea and Vomiting (N/V) lactated 2018-0 Yes 1000mL at 150 Unive rs ringers IV 8-22 mL/hr, ity of infusion 10:15: 1,000 mL, [place] 1,000 [place] 00 IV Medical Infusion, [place] CONTINUOUS , Starting [facility] 10/20/18 at 0515, Until Discontinu ed, Routine morpHINE 2018- Yes 2mg 2 mg, Slow Uni vers injection 2 - IV Push, ity of mg 10:06: Q6HPRN, [place] 55 Starting Medical Ingrid [place] 10/20/18 at 0506, Until Discontinu ed, Routine, [...] 10-20 Oral, ity of (TYLENOL) 10:03: Q6HPRN, [place] tablet 650 38 Starting Medic al mg Ingrid Branch 10/20/18 at 0503, Until Discontinu ed, Routine, Pain (scale 1-3) cefTRIAXone 2019- No 1000mg 1,000 mg, Univers (ROCEPHIN) 10-20 IV ity of 1,000 mg in 09:45: 09:22 Piggyback, [place] NaCl 0.9% 00 :00 ONCE, 1 Medical (NS) 50 mL dose, [facility] Bran ch MINI-BAG 10/20/18 at 0445, 50 mL
Reas on for Anti-Infec tive: Documented Infection< br>Documen shelia Infection Site: Urine
D uration of Therapy: 7 days ondansetron 2019- No 4mg 4 mg, Slow Univers (ZOFRAN 10-20 IV Push, ity of (PF)) 09:45: 08:52 ONCE, 1 [place] injection 4 00 :00 dose, Ingrid Med ical mg 10/20/18 at Branch 0445, CHITO morpHINE 2019- No 4mg 4 mg, Slow Un lanie injection 4 10-20 IV Push, ity of mg 09:45: 08:52 ONCE, 1 [place] 00 :00 dose, Ingrid Medical 10/20/18 at Branch 0445, STAT tamsulosin Yes [id number] .4mg Take 1 U nivers 0.4 mg 24 10-20 capsule by ity of hr capsule 00:00: mouth at [place] 00 bedtime. Medical Branch metroNIDAZO 2019- No [id number] 500mg Take 1 Univers LE (FLAGYL) 10-20 tablet by it y of 500 mg 00:00: 04:59 mouth 2 [place] tablet 00 :00 (two) Medical times Branch daily for 14 days. metroNIDAZO 2019- No [id number] 500mg Take 1 Univers LE 500 mg 10-20 tablet by ity of tablet 00:00: 04:59 mouth 2 [place] 00 :00 (two) Medical times [place] daily for 13 doses. ciprofloxac 2019- No [id number] 250mg Take 1 Univers in HCl 10-20 tablet by ity of (CIPRO) 250 00:00: 04:59 mouth 2 [place] mg tablet 00 :00 (two) Medical times [place] daily for 3 days. traMADol 2018- No 50mg 50 mg, Univer s (ULTRAM) 10-19 Oral, ONCE ity of tablet 50 04:45: 03:41 NOW, 1 [place] mg 00 :00 dose, [facility] 10/18/18 at Branch 2345, CHITO cefTRIAXone 2018- No 1000mg 1,000 mg, Univers (ROCEPHIN) 10-19 IV ity of 1,000 mg in 04:45: 04:11 Piggyback, [place] NaCl 0.9% 00 :00 ONCE, 1 Medical (NS) 50 mL dose, [facility] ch MINI-BAG 10/18/18 at 2345, 50 mL
[...] ed, Routine, Pain (scale 7-10) ondansetron Yes [id number] 4mg Take 1 Univers 4 mg 8-20 tablet by ity of disintegrat 00:00: mouth [place] ing tablet 00 every 8 Medica l (eight) Branch hours as needed for Nausea and Vomiting (N/V). cefdinir 2019- No [id number] 300mg Take 1 Univers 300 mg -10-29 capsule by ity of capsule 00:00: 04:59 mouth 2 [place] 00 :00 (two) Medical times Branch daily for 10 days. ondansetron 2019- No [id number] 4mg Take 1 Univers 4 mg -18 10- tablet by ity of disintegrat 00:00: 00:00 mouth [place] ing tablet 00 :00 every 8 Medica l (eight) Branch hours as needed for Nausea and Vomiting (N/V). cefdinir 2019- No [id number] 300mg Take 1 Univers 300 mg 8-20 - capsule by ity of capsule 00:00: 00:00 mouth 2 [place] 00 :00 (two) Medical times Branch daily for 10 days. FENTanyl PF 2019- No 50ug 50 mcg, Un lanie (SUBLIMAZE 10-17 Slow IV ity o f (PF)) 14:15: 13:14 Push, [place] injection 00 :00 ONCE, 1 Medical 50 mcg dose, Mon Branch 10/17/18 at 0915, Routine cefTRIAXone 2019- No 1000mg 1,000 mg, Univers (ROCEPHIN) 10-17 IV ity of 1,000 mg in 13:30: 13:06 Piggyback, [place] NaCl 0.9% 00 :00 ONCE, 1 Medical (NS) 50 mL dose, [facility] ch MINI-BAG 10/17/18 at 0830, 50 mL
Reas on for Anti-Infec tive: Documented Infection< br>Documen shelia Infection Site: Urine
D uration of Therapy: 7 days ketorolac 2019- No 30mg 30 mg, Unive rs (TORADOL) 10-17 Slow IV ity of injection 12:15: 11:11 Push, [place] 30 mg 00 :00 ONCE, 1 Medical dose, Mon Branch 10/17/18 at 0715, Routine
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 acetaminoph 2018- Yes [id number] 1{tbl} Take 1 Univers en-codeine 8-19 tablet by ity of (TYLENOL-CO 00:00: mouth [place] DEINE #3) 00 every 6 Medical 300-30 mg (six) Branch tablet hours as needed for Pain (scale 4-6). tamsulosin 2018- Yes [id number] .4mg Take 1 U nivers 0.4 mg 24 8-19 capsule by ity of hr capsule 00:00: mouth at [place] 00 bedtime. Medical Branch ketorolac 2018-0 Yes [id number] 10mg Take 1 Un lanie 10 mg 8-19 tablet by ity of tablet 00:00: mouth [place] 00 every 6 Medical (six) Branch hours as needed for Pain (scale 4-6). acetaminoph 2019- Yes [id number] 1{tbl} Take 1 Univers en-codeine 8-19 tablet by ity of (TYLENOL-CO 00:00: mouth [place] DEINE #3) 00 every 6 Medical 300-30 mg (six) Branch tablet hours as needed for Pain (scale 4-6). tamsulosin 2019-0 Yes [id number] .4mg Take 1 U nivers 0.4 mg 24 8-19 capsule by ity of hr capsule 00:00: mouth at [place] 00 bedtime. Medical Branch cephALEXin 2018-0 2019- No [id number] 500mg Take 1 Univers (KEFLEX) 10-17 capsule by ity of 500 mg 00:00: 04:59 mouth 2 [place] capsule 00 :00 (two) Medical times Branch daily for 7 days. ketorolac 2018- No [id number] 10mg Take 1 U nivers 10 mg 10-17 tablet by ity of tablet 00:00: 00:00 mouth [place] 00 :00 every 6 Medical (six) Branch hours as needed for Pain (scale 4-6). acetaminoph 2019- No [id number] 1{tbl} Take 1 Univers en-codeine 10-17 tablet by ity of (TYLENOL-CO 00:00: 00:00 mouth [place] DEINE #3) 00 :00 every 6 Medical 300-30 mg (six) Branch tablet hours as needed for Pain (scale 4-6). tamsulosin 2018- No [id number] .4mg Take 1 Univers 0.4 mg 24 10-17 capsule by ity of hr capsule 00:00: 00:00 mouth [place] 00 :00 bedtime. Medical Branch cephALEXin 2018- No [id number] 500mg Take 1 Univers (KEFLEX) 10-17 capsule by ity of 500 mg 00:00: 00:00 mouth 2 [place] capsule 00 :00 (two) Medical times [place] daily for 7 days. Vital Signs Vital Name Observation Time Observation Value Comments Source Height/Length 2021-03-18 09:27:21 162.50 cm Measured Height/Length 2021-03-18 09:27:20 162.50 cm Measured Height/Length 2019-05-07 06:02:20 Measured Systolic blood 2018-10-20 20:17:00 121 mm[Hg] Univer sity of pressure [facility] Diastolic blood 2018-10-20 20:17:00 59 mm[Hg] Unive rsity of pressure [facility] Heart rate 2018-10-20 20:17:00 99 /min [facility] Body temperature 2018-10-20 20:17:00 36.89 [facility]la [facility] Res[facility] rate 2018-10-20 20:17:00 18 /[facility] O[facility] saturation in 2018-10-20 20:17:00 99 /min [facility] Arterial blood by [facility] Pulse oximetry Branch Body height 2018-10-20 11:17:00 [...] 99 /min University of Arterial blood by B[place] jace Pulse oximetry Branch Body height 2018-10-20 11:17:00 157.5 cm [facility] [place] [facility] Body weight 2018-10-20 11:17:00 85.957 kg [facility] [place] [facility] BMI 2018-10-20 11:17:00 34.66 kg/m2 [facility] [place] [facility] Systolic blood 2018-10-19 04:16:49 149 mm[Hg] Univer sity of pressure [place] [facility] Diastolic blood 2018-10-19 04:16:49 108 mm[Hg] Unive rsity of pressure [place] [facility] Heart rate 2018-10-19 04:16:49 80 /min [facility] [place] [facility] Respiratory rate 2018-10-19 04:16:49 18 /min Univ ers[facility] [place] [facility] Oxygen saturation in 2018-10-19 04:16:49 98 /min University of Arterial blood by [place] [facility]cam jace Pulse oximetry Branch Body temperature 2018-10-19 01:31:00 36.67 Starla [facility] [place] [facility] Body weight 2018-10-19 01:30:00 76.658 kg [facility] [place] [facility] Systolic blood 2018-10-19 04:16:49 149 mm[Hg] Univer sity of pressure [place] [facility] Diastolic blood 2018-10-19 04:16:49 108 mm[Hg] Unive rsity of pressure [place] [facility] Heart rate 2018-10-19 04:16:49 80 /min [facility] [place] [facility] Respiratory rate 2018-10-19 04:16:49 18 /min Univ ers[facility] [place] [facility] Oxygen saturation in 2018-10-19 04:16:49 98 /min University of Arterial blood by [facility] Pulse oximetry Branch Body temperature 2018-10-19 01:31:00 36.67 Starla [facility] ers[facility] [place] [facility] Body weight 2018-10-19 01:30:00 76.658 kg [facility] [place] [facility] Systolic blood 2018-10-17 13:48:00 146 mm[Hg] Univer sity of pressure [place] [facility] Diastolic blood 2018-10-17 13:48:00 102 mm[Hg] Unive rsity of pressure [place] [facility] Heart rate 2018-10-17 13:48:00 83 /min [facility] [place] [facility] Respiratory rate 2018-10-17 13:48:00 14 /min Univ ers[facility] [place] [facility] Oxygen saturation in 2018-10-17 13:48:00 100 /min University of Arterial blood by [facility] Pulse oximetry Branch Body temperature 2018-10-17 10:51:00 37.39 Starla [facility] [place] [facility] Body weight 2018-10-17 10:51:00 72.122 kg [facility] [place] [facility] Systolic blood 2018-10-17 13:48:00 146 mm[Hg] Univer sity of pressure [place] [facility] Diastolic blood 2018-10-17 13:48:00 102 mm[Hg] Unive rsity of pressure [place] [facility] Heart rate 2018-10-17 13:48:00 83 /min [facility] [place] [facility] Respiratory rate 2018-10-17 13:48:00 14 /min Univ ers[facility] [place] [facility] Oxygen saturation in 2018-10-17 13:48:00 100 /min University of Arterial blood by [facility] Pulse oximetry Branch Body temperature 2018-10-17 10:51:00 37.39 Starla [facility] [place] [facility] Body weight 2018-10-17 10:51:00 72.122 kg [facility] [place] [facility] Procedures Procedure Date / Time Performing Clinician Source Performed EXTRA TUBE URINE 2018-10-20 13:26:00 Apryl Estrada [facility] PROTHROMBIN TIME / INR 2018-10-20 12:21:00 Eduardo Ornelas [facility] ACTIVATED PARTIAL 2018-10-20 12:21:00 Eduardo Ornelas [facility] THRMPLAS BIJU [facility] GALV ONLY - SYPHILIS 2018-10-20 12:21:00 Eduardo Ornelas [facility] IGG/IGM [facility] PHOSPHORUS 2018-10-20 08:52:00 Eduardo Ornelas [facility] TEST, SERUM 2018-10-20 08:52:00 Keturah Wagner [facility] HEPATIC FUNCTION PANEL 2018-10-20 08:52:00 Eduardo Ornelas [facility] ([id number]) (ALB,T.PRO,BILI [facility] T,BU/BC,ALT,AST,ALK PHOS) COMP. METABOLIC PANEL 2018-10-20 08:52:00 Keturah Wagner [facility] ([id number]) [facility] CBC WITH DIFFERENTIAL 2018-10-20 08:52:00 Keturah Wagner [facility] URINALYSIS 2018-10-20 08:52:00 Keturah Wagner [facility] BASIC METABOLIC PANEL 2018-10-19 02:39:00 Joaquin Boyer [facility] (NA, K, CL, CO2, Medical Branch GLUCOSE, BUN, CREATININE, CA) CBC WITH DIFFERENTIAL 2018-10-19 02:39:00 Joaquin Boyer [facility] URINALYSIS 2018-10-19 02:12:00 Joaquin Boyer [facility] POCT TEST 2018-10-19 02:11:00 Joaquin Boyer [facility] XR KUB 2018-10-19 02:01:16 Joaquin Boyer [facility] CT ABDOMEN PELVIS WO 2018-10-17 11:21:20 Azra Sanz [facility] CONTRAST [facility] LIPASE 2018-10-17 11:07:00 Azra Sanz [facility] COMP. METABOLIC PANEL 2018-10-17 11:07:00 Azra Sanz [facility] ([id number]) Medical Branch CBC WITH DIFFERENTIAL 2018-10-17 11:07:00 Azra Sanz [facility] URINALYSIS 2018-10-17 11:07:00 Azra Sanz [facility] POCT TEST 2018-10-17 10:59:00 Azra Sanz [facility] NOTICE OF PRIVACY 2018-10-17 10:28:41 Doctor Unassigned, No [facility] PRACTICES Name Medical Branch Encounters Start End Encounter Admission Attending Care Care Encounter Source Date/Time Date/Time Type Type Clinicians Facility Department ID 2019-05-07 2019-05-07 Emergency [facility] [id number] 05:05:00 05:05:00 [facility] 2019-05-07 2019-05-07 Emergency 1 Laura Arora [facility] [id number] 05:05:00 05:05:00 Laura Arora -[id number] [facility] 2018-10-20 2018-10-20 Emergency Keturah Wagner [id number] [facility] 03:38:33 17:10:00 Apryl Estrada [id number] ity of [facility] 4.2.7.2.686 [place] [id number] [facility] 093 Branch 2018-10-20 2018-10-20 Emergency Keturah Wagner [id number] 03:38:33 17:10:00 Apryl Estrada 350.1.13.10 [facility] [id number] 2018-10-18 2018-10-18 Emergency [place], [place] [id number] Univers 20:31:25 23:36:00 [facility] [id number] it y 4[place]2.686 [place] [id number] [facility] 014 Branch 2018-10-18 2018-10-18 Emergency Harkey, TRAUMA [id number] 20:31:25 23:36:00 [facility] [id number] 4.2.7.2.686 [id number] 2018-10-17 2018-10-17 Emergency [facility] [id number] [facility] 05:31:02 08:52:00 Azra Small [id number] ity of [place] 4.2.7.2.686 [facility] [id number] [facility] 084 Branch 2018-10-17 2018-10-17 Emergency MaryluFormerly [facility] [id number] 05:31:02 08:52:00 Azra [place] 350.1.13.10 [place] 4.2.7.2.686 [place] [id number] [id number] Results Test Description Test Time Test [...] confir matory test if desired. HCG Qualitative [id number] 07:40:25 Test Item Value Reference Range Interpretation [...] 72 hours. Lot # (test code = [id number] N Lot #) Expiration Dt (test N code = Expiration Dt) Neg Control (test Negative code = Neg Control) Pos Control (test Positive code = Pos Control) Internal QC (test Acceptable code = Internal QC) Urinalysis [id number] 07:30:28 Test Item Value Reference Range Interpretation Comments UA WBC (test code = UA WBC) 0-5 0-5 UA RBC (test code = UA RBC) 11-19 0-5 A UA Bacteria (test code = UA Moderate A Bacteria) UA Squam Epithelial (test code = UA 20-29 A Squam Epithelial) Comprehensive Metabolic [id number] 07:28:48 Test Item Value Reference Range Interpretation [...] A/G 1.8 ratio N Ratio) Comprehensive Metabolic [id number] 07:28:48 Test Item Value Reference Range Interpretation [...] the National Kidney Foundation, http://nkdep.ni h.gov Alcohol [id number] 07:28:48 Test Item Value Reference Range Interpretation Comments Ethanol Level (test <0.00 g/dL 0.00-0.01 Intoxica shelia 0.080 g/dL code = Ethanol or more Level) Ethanol Inst (test <0 N code = Ethanol Inst) Comprehensive Metabolic [id number] 07:28:48 Test Item Value Reference Range Interpretation [...] ag e have not been validated by [facility] MDRD study and should be interpreted [...] ag e have not been validated by [facility] MDRD study and should be interpreted wit h caution. eGFR R esult Interpretation: eGFR > or = 60 is in the Normal RangeeGF R < 60 may mean kid cristian diseaseeGFR < 1 5 may mean kidney failure Rang es recommended by the National Kidney Foundation, http://nkdep.ni h.gov Complete Blood Count with [id number] 07:10:06 Test Item Value Reference Range Interpretation [...] code = IPF) 0 % N Automated [id number] 07:10:06 Test Item Value Reference Range Interpretation Comments Neutro Auto (test code = Neutro 79.6 % 36.0-70.0 H Auto) Lymph Auto (test code = Lymph Auto) 12.6 % 12.0-44.0 Kent Auto (test code = Kent Auto) 5.9 % 0.0-11.0 Eos, Auto (test code = Eos, Auto) 0.8 % 0.0-7.0 Basophil Auto (test code = Basophil 0.8 % 0.0-2.0 Auto) Neutro Absolute (test code = Neutro 9.5 x10 1.6-7.4 H Absolute) Lymph Absolute (test code = Lymph 1.51 x10 .50-4.60 Absolute) Kent Absolute (test code = Kent .71 x10 .00-1.20 Absolute) Eos Absolute (test code = Eos 0.09 x10 0.00-0.74 Absolute) Baso Absolute (test code = Baso 0.09 x10 0.00-0.21 Absolute) IG [id number] 07:10:06 Test Item Value Reference Range Interpretation Comments IG (test code = IG) 0.3 % 0.0-5.0 IG Abs (test code = IG Abs) 0 x10 N Urinalysis with Culture, if [id number] 07:09:55 Test Item Value Reference Range Interpretation [...] GL_SJM_UA_MICRO _IN D GALV ONLY - SYPHILIS [id number] 15:34:00 Test Item Value Reference Range Interpretation Comments Syphilis IgG/IgM (test Non-reactive Non-reactive code = 65508-5) SUZY (test code = SUZY) Non-reactive - No serologic evidence of T. pallidum infection. Cannot exclude incubating or early syphilis. Submit a second specimen in 2-4 weeks if syphilis is clinically suspected.Equivocal - Further testing to follow.Reactive - Further testing to follow. Lab Interpretation (test Normal code = 44823-1) [facility] Time / [id number] 12:54:00 Test Item Value Reference Range Interpretation Comments PROTIME PATIENT (test See_Comment [Auto mated message] code = 5964-2) The system [employer]elligent[employer] generated this result transmitted ref erence range: 10.1 - 1 2.6 Seconds. The re ference range was not u sed to interpret this result as normal/abnor mal. INR (test code = 6301-6) Nor mal INR <1.1; Warfarin Therap eutic range 2.0 to 3. 0 or 2.5 to 3.5, dep ending upon the indica tions. Lab Interpretation (test Normal code = 44742-1) [facility]2019-08[facility] 12:54:00 Test Item Value Reference Range Interpretation Comments APTT Patient (test code = See_Comment [ Automated message] 3173-2) The system besomebody. h generated this result transmitted ref erence range: 26 - 36 Seconds. The re ference range was not u sed to interpret this result as normal/abnor mal. Lab Interpretation (test Normal code = 42882-1) [facility] PAN[facility] (37600) (ALB,T.PRO,BILI T,BU/BC,ALT,AST,ALK PHOS)2018-10-20 10:38:00 Test Item Value Reference Range Interpretation Comments TOTAL BILI (test code = 3217826729) 0.3 mg/dL 0.1-1.1 BILI UNCON (test code = 5484834720) 0.0 mg/dL 0.1-1.1 L BILI CONJ (test code = 2685281597) 0.0 mg/dL 0-0.3 T PROTEIN (test code = 8797762449) 6.4 g/dL 6.3-8.2 ALBUMIN (test code = 8362172150) 3.8 g/dL 3.5-5 ALK PHOS (test code = 8366649258) 77 U/L 34-122 ALT(SGPT) (test code = 4844692304) 22 U/L 9-51 AST(SGOT) (test code = 5848957790) 19 U/L 13-40 Lab Interpretation (test code = Abnormal 30877-4) [facility] RegionalPhosphorus [id number] 10:38:00 Test Item Value Reference Range Interpretation Comments PHOSPHORUS (test code = 7044552010) 3.3 mg/dL 2.5-5 Lab Interpretation (test code = Normal 12522-2) [facility] Metabolic [id number] 09:19:00 Test Item Value Reference Range Interpretation Comments NA (test code = 138 mmol/L 135-145 6505771603) K (test code = 4.0 mmol/L 3.5-5 6082535133) CL (test code = 104 mmol/L 98-108 2244600993) CO2 TOTAL (test code = 27 mmol/L 23-31 2249899234) AGAP (test code = 2-16 2252082143) BUN (test code = 12 mg/dL 7-23 1843574101) GLUCOSE (test code = 96 mg/dL 70-110 8235472921) CREATININE (test code 0.83 mg/dL 0.5-1.04 = 0539927286) TOTAL BILI (test code 0.3 mg/dL 0.1-1.1 = 3511114981) CALCIUM (test code = 9.3 mg/dL 8.6-10.6 4154916968) T PROTEIN (test code = 6.4 g/dL 6.3-8.2 1119371401) ALBUMIN (test code = 3.8 g/dL 3.5-5 8502136054) ALK PHOS (test code = 77 U/L 34-122 3938175065) ALT(SGPT) (test code = 23 U/L 9-51 2467123413) AST(SGOT) (test code = 20 U/L 13-40 4108483577) eGFR Calculation mL/min/1.73m2 (Non-) (test code = 0183241771) eGFR Calculation mL/min/1.73m2 () (test code = 6335720413) SUZY (test code = SUZY) Association of [...] or urine or abnormalities in imaging tests). [facility] Regional[facility]inalysis2019-08-22 09:19:00 Test Item Value Reference Range Interpretation Comments APPEARANCE (test code = Cloudy Clear A 9045608907) COLOR (test code = Yellow Yellow 5682326579) PH (test code = 4.8-8.0 1418831835) SP GRAVITY (test code = 1.003-1.030 1738225886) GLU U QUAL (test code = Normal Normal 8171230183) BLOOD (test code = 2+ Negative A 1905477478) KETONES (test code = 5 mg/dL Negative A 1094764514) PROTEIN (test code = Negative Negative 2887-8) UROBILIN (test code = Normal Normal 4268537879) BILIRUBIN (test code = Negative Negative 4680036806) NITRITE (test code = Negative Negative 8382971768) LEUK JANEY (test code = 500/uL Negative A 2631057522) RBC/HPF (test code = See_Comment H [Autom ated message] 3259695772) The system [employer] generated this result transmitted ref erence range: 0 - 3 HP F. The reference range was not used to int erpret this result as normal/abnormal . WBC/HPF (test code = See_Comment H [Autom ated message] 2661273252) The system [employer] generated this result transmitted ref erence range: 0 - 5 HP F. The reference range was not used to int erpret this result as normal/abnormal . BACTERIA (test code = Negative Negative 1478014835) MUCOUS (test code = Slight Negative LPF A 9193936002) SQ EPITH (test code = See_Comment H [Auto mated message] 9089477269) The system [employer] generated this result transmitted ref erence range: <=2 HPF. The reference range was not used to int erpret this result as normal/abnormal . TRICHOMONA (test code = See_Comment H [Au tomated message] 8168249009) The system ic h generated this result transmitted ref erence range: <=1 HPF. The reference range was not used to int erpret this result as normal/abnormal . Lab Interpretation (test Abnormal code = 17086-8) [facility] WITH [id number] 09:17:00 Test Item Value Reference Range Interpretation Comments WBC (test code = See_Comment H [Automated 90-2) message] The system which generated this result [...] (test code = 38.5 fL 39-49.9 L 72449-1) RDW-CV (test code = 12.8 % 12-15.5 788-0) PLT (test code = See_Comment [Automated 777-3) message] The system which generated this result transmit shelia reference range : 166 - 358 10*3/ ?L. The reference range was not u sed to interpret th is result as normal/abnormal . MPV (test code = 10.9 fL 9.5-12.9 83574-4) NRBC/100 WBC (test See_Comment [Automat ed code = 5149806067) message] The system which generated this result transmit shelia reference range : 0.0 - 10.0 /100 WBCs. The reference range was not used to interpret this result as normal/abnormal . NRBC x10^3 (test code <0.01 See_Comment [Auto mated = 7082469649) message] The system which generated this result transmit shelia reference range : 10*3/?L. The reference range was not used to interpret this result as normal/abnormal . GRAN MAT (NEUT) % 77.8 % (test code = 770-8) IMM GRAN % (test code 0.30 % = 9347206780) LYMPH % (test code = 12.1 % 736-9) MONO % (test code = 7.0 % 5905-5) EOS % (test code = 2.4 % 713-8) BASO % (test code = 0.4 % 706-2) GRAN MAT x10^3(ANC) 10.50 10*3/uL 1.88-7.09 H (test code = 4327683033) IMM GRAN x10^3 (test 0.04 10*3/uL 0-0.06 code = 6265667377) LYMPH x10^3 (test code 1.63 10*3/uL 1.32-3.29 = 731-0) MONO x10^3 (test code 0.94 10*3/uL 0.33-0.92 H = 742-7) EOS x10^3 (test code = 0.32 10*3/uL 0.03-0.39 711-2) BASO x10^3 (test code 0.05 10*3/uL 0.01-0.07 = 704-7) Lab Interpretation Abnormal (test code = 68376-3) [facility] [id number] 09:12:00 Test Item Value Reference Range Interpretation Comments PREG SERUM (test code Negative = 1948671653) SUZY (test code = SUZY) Less than 10 IU/L.?If low titer or ectopic is suspected, resubmit specimen in 48-72 hours. [facility] METABOLIC PANEL (NA, K, CL, CO2, GLUCOSE, BUN, CREATININE, CA)2018-10-19 03:13:00 Test Item Value Reference Range Interpretation Comments NA (test code = 138 mmol/L 135-145 6897959097) K (test code = 4.3 mmol/L 3.5-5 1962157538) CL (test code = 103 mmol/L 98-108 3018430957) CO2 TOTAL (test code = 29 mmol/L 23-31 6133782812) AGAP (test code = 2-16 5841247677) BUN (test code = 15 mg/dL 7-23 0031971446) GLUCOSE (test code = 89 mg/dL 70-110 3050478777) CREATININE (test code 0.91 mg/dL 0.5-1.04 = 0611065228) CALCIUM (test code = 9.0 mg/dL 8.6-10.6 4709760796) eGFR Calculation mL/min/1.73m2 (Non-) (test code = 4861773381) eGFR Calculation mL/min/1.73m2 () (test code = 7595248122) SUZY (test code = SUZY) Association of [...] or urine or abnormalities in imaging tests). [facility] [id number] 02:56:00 Test Item Value Reference Range Interpretation Comments APPEARANCE (test code = Hazy Clear A 1151321274) COLOR (test code = Daniela Yellow A 4326118985) PH (test code = 4.8-8.0 1620128740) SP GRAVITY (test code = 1.003-1.030 2358513257) GLU U QUAL (test code = Normal Normal 3126408915) BLOOD (test code = 2+ Negative A 8022646081) KETONES (test code = 80 mg/dL Negative A 8690064691) PROTEIN (test code = 100 mg/dL Negative A 2887-8) UROBILIN (test code = 2.0 mg/dL Normal A 0371470598) BILIRUBIN (test code = Negative Negative 4917345460) NITRITE (test code = Positive Negative A 0173237962) LEUK JANEY (test code = 500/uL Negative A 7356982257) RBC/HPF (test code = See_Comment H [Autom ated message] 7136756927) The system [employer] generated this result transmit shelia reference range : 0 - 3 HPF. The refe rence range was not u sed to interpret th is result as normal/abnormal . WBC/HPF (test code = See_Comment H [Autom ated message] 7895020059) The system [employer] generated this result transmit shelia reference range : 0 - 5 HPF. The refe rence range was not u sed to interpret th is result as normal/abnormal . BACTERIA (test code = Few Negative A 2623380084) MUCOUS (test code = Moderate Negative LPF A 3758006763) SQ EPITH (test code = See_Comment H [Auto mated message] 7144572630) The system [employer] generated this result transmit shelia reference range : <=2 HPF. The refere nce range was not u sed to interpret th is result as normal/abnormal . Lab Interpretation (test Abnormal code = 48683-7) [facility] WITH [id number] 02:54:00 Test Item Value Reference Range Interpretation [...] (test code = 38.1 fL 39-49.9 L 11904-8) RDW-CV (test code = 12.7 % 12-15.5 788-0) PLT (test code = See_Comment [Automated 777-3) message] The system which generated this result transmit shelia reference range : 166 - 358 10*3/ ?L. The reference range was not u sed to interpret th is result as normal/abnormal . MPV (test code = 10.9 fL 9.5-12.9 10984-2) NRBC/100 WBC (test See_Comment [Automat ed code = 8089641637) message] The system which generated this result transmit shelia reference range : 0.0 - 10.0 /100 WBCs. The reference range was not used to interpret this result as normal/abnormal . NRBC x10^3 (test code <0.01 See_Comment [Auto mated = 2042710356) message] The system which generated this result transmit shelia reference range : 10*3/?L. The reference range was not used to interpret this result as normal/abnormal . GRAN MAT (NEUT) % 78.8 % (test code = 770-8) IMM GRAN % (test code 1.00 % = 9581673903) LYMPH % (test code = 11.8 % 736-9) MONO % (test code = 6.9 % 5905-5) EOS % (test code = 1.2 % 713-8) BASO % (test code = 0.3 % 706-2) GRAN MAT x10^3(ANC) 12.85 10*3/uL 1.88-7.09 H (test code = 4434704085) IMM GRAN x10^3 (test 0.17 10*3/uL 0-0.06 H code = 3176831073) LYMPH x10^3 (test code 1.92 10*3/uL 1.32-3.29 = 731-0) MONO x10^3 (test code 1.13 10*3/uL 0.33-0.92 H = 742-7) EOS x10^3 (test code = 0.20 10*3/uL 0.03-0.39 711-2) BASO x10^3 (test code 0.05 10*3/uL 0.01-0.07 = 704-7) Lab Interpretation Abnormal (test code = 79137-5) [facility] [id number] 02:32:30 No radiopaque stones are visualized. Chacho [...] reviewed this study and agree with the abovereport.[facility]PO[facility] [id number] 02:11:00 Test Item Value Reference Range Interpretation Comments POCT PREG (test code = 1605) negative On board controls acceptable with present C Line (test code = 3574) POCT PREG LOT # (test code = 3575) [id number] POCT PREG TEST DATE (test 02-29-2020 code = 3576) Lab Interpretation (test code = Normal 98506-5) [facility]2019-08-19 12:15:00 Test Item Value Reference Range Interpretation Comments APPEARANCE (test code = Cloudy Clear A 5126180903) COLOR (test code = Yellow Yellow 0736490810) PH (test code = 4.8-8.0 2251301526) SP GRAVITY (test code = >=1.030 1.003-1.030 7985851959) GLU U QUAL (test code = Negative Negative 6425989693) BLOOD (test code = Moderate Negative A 3741336562) KETONES (test code = Negative Negative 4432004158) PROTEIN (test code = Negative Negative 2887-8) UROBILIN (test code = 0.2 mg/dL See_Comment [Auto mated message] 4553844136) The system [employer] generated this result transmit shelia reference range : 0-1.0 mg/dL. Th e reference range was not used to interpret this result as normal/abnormal . BILIRUBIN (test code = Negative Negative 2887333772) NITRITE (test code = Negative Negative 7393023602) LEUK JANEY (test code = Moderate Negative A 5969782763) RBC/HPF (test code = See_Comment [Autom ated message] 0551919151) The system [employer] generated this result transmit shelia reference range : 0 - 3 HPF. The refe rence range was not u sed to interpret th is result as normal/abnormal . WBC/HPF (test code = See_Comment H [Autom ated message] 2161026521) The system [employer] generated this result transmit shelia reference range : 0 - 5 HPF. The refe rence range was not u sed to interpret th is result as normal/abnormal . BACTERIA (test code = Few Negative A 1050534714) MUCOUS (test code = Slight Negative LPF A 9899687393) SQ EPITH (test code = HPF 2189575603) Lab Interpretation (test Abnormal code = 06208-4) [facility] WITH [id number] 11:39:00 Test Item Value Reference Range Interpretation Comments WBC (test code = See_Comment H [Automated 7190-2) message] The system which generated this result [...] (test code = 38.9 fL 39-49.9 L 36114-7) RDW-CV (test code = 12.7 % 12-15.5 788-0) PLT (test code = See_Comment [Automated 777-3) message] The system which generated this result transmit shelia reference range : 166 - 358 10*3/ ?L. The reference range was not u sed to interpret th is result as normal/abnormal . MPV (test code = 10.9 fL 9.5-12.9 26547-4) NRBC/100 WBC (test See_Comment [Automat ed code = 2665644676) message] The system which generated this result transmit shelia reference range : 0.0 - 10.0 /100 WBCs. The reference range was not used to interpret this result as normal/abnormal . NRBC x10^3 (test code <0.01 See_Comment [Auto mated = 8305696928) message] The system which generated this result transmit shelia reference range : 10*3/?L. The reference range was not used to interpret this result as normal/abnormal . GRAN MAT (NEUT) % 88.4 % (test code = 770-8) IMM GRAN % (test code 0.50 % = 5731300950) LYMPH % (test code = 5.4 % 736-9) MONO % (test code = 4.9 % 5905-5) EOS % (test code = 0.4 % 713-8) BASO % (test code = 0.4 % 706-2) GRAN MAT x10^3(ANC) 18.35 10*3/uL 1.88-7.09 H (test code = 1074156273) IMM GRAN x10^3 (test 0.11 10*3/uL 0-0.06 H code = 1674844750) LYMPH x10^3 (test code 1.12 10*3/uL 1.32-3.29 L = 731-0) MONO x10^3 (test code 1.02 10*3/uL 0.33-0.92 H = 742-7) EOS x10^3 (test code = 0.08 10*3/uL 0.03-0.39 711-2) BASO x10^3 (test code 0.09 10*3/uL 0.01-0.07 H = 704-7) Lab Interpretation Abnormal (test code = 41171-8) [facility] METABOLIC PANEL (27781)2018-10-17 11:36:00 Test Item Value Reference Range Interpretation Comments NA (test code = 142 mmol/L 135-145 6128718753) K (test code = 4.0 mmol/L 3.5-5 2104003526) CL (test code = 107 mmol/L 98-108 7352637597) CO2 TOTAL (test code = 22 mmol/L 23-31 L 9253202102) AGAP (test code = 2-16 7783882467) BUN (test code = 21 mg/dL 7-23 7796479823) GLUCOSE (test code = 104 mg/dL 70-110 3011204235) CREATININE (test code = 0.90 mg/dL 0.5-1.04 3563522826) TOTAL BILI (test code = 0.4 mg/dL 0.1-1.3 9315478144) CALCIUM (test code = 9.5 mg/dL 8.6-10.6 3767332072) T PROTEIN (test code = 7.9 g/dL 6.3-8.2 4694165173) ALBUMIN (test code = 4.7 g/dL 3.5-5 7053499684) ALK PHOS (test code = 118 U/L 34-122 4241601610) ALT(SGPT) (test code = 22 U/L 9-51 6397427246) AST(SGOT) (test code = 29 U/L 13-40 8546097203) eGFR Calculation mL/min/1.73m2 (Non-) (test code = 7144787864) eGFR Calculation mL/min/1.73m2 () (test code = 0738572441) SUZY (test code = SUZY) Association of [...] tests). Lab Interpretation Abnormal (test code = 25998-3) [facility]LIP[facility]2019-08-[facility] 11:36:00 Test Item Value Reference Range Interpretation Comments LIPASE (test code = 1411538617) 71 U/L 0-220 Lab Interpretation (test code = Normal 30839-7) [facility]CT ABDOMEN PELVIS WO [id number] 11:35:31 1. 2 mm stone located in the distal right ureter just proximal to the UVJproduces mild?hydroureteronephrosis. There is mild?periureteral andperinephric edematous changes. 2. Additional punctate calyceal stone at the inferior pole of the rightkidney. RL: [id number] ORDERING PHYSICIAN: AZRA SANZ CLINICAL HISTORY: Flank [...] isnondilated. No acute osseous abnormalities are identified. [facility], Radiant Results Inft User - 10/17/2018 [...] at the inferior pole of the rightkidney.RL: [id number] [facility] HospitalPOCT [id number] 10:59:00 Test Item Value Reference Range Interpretation Comments POCT PREG (test code = 1605) negative On board controls acceptable with present C Line (test code = 3574) POCT PREG LOT # (test code = 3575) [id number] POCT PREG TEST DATE (test 2020-02-29 code = 3576) Lab Interpretation (test code = Normal 92294-8) [facility]
[2021-05-16] MEDS ORDERED: ACETAMINOPHEN 325 MG TABLET ONE (03:44)
[2021-05-16 04:08] LABS: Absolute Lymphocytes (CBC) 0.7 K/uL (0.7-4.9); Hematocrit 40.2 % (36.0-45.0); Lymphocytes % 7.6 % (15.3-44.8); MPV 8.3 fL (7.6-11.3); RBC Red Blood Cell Count 4.61 M/uL (3.86-4.86)
[2021-05-16 04:08] LABS: Urine Blood 1+ (Negative); Urine Glucose Negative (Negative); Urine Protein Negative (Negative); Urine Specific Gravity 1.025 (1.005-1.030); Urine pH 6.5 (5.0-7.0)
[2021-05-16 04:13] LABS: Protime INR 1.16
[2021-05-16 04:35] LABS: ALT/SGPT 31 U/L (12-78); AST/SGOT 19 U/L (15-37); Albumin 3.9 g/dL (3.4-5.0); Alkaline Phosphatase 94 U/L (45-117); BUN Blood Urea Nitrogen 14 mg/dL (7-18); Bicarbonate 27 mmol/L (21-32); Bilirubin Total 0.4 mg/dL (0.2-1.0); Glucose Level 93 mg/dL (74-106); Potassium 3.5 mmol/L (3.5-5.1); Protein, Total 7.4 g/dL (6.4-8.2); Sodium Level 138 mmol/L (136-145)
[2021-05-16 04:45] LABS: SARS-COV-2 RT PCR NEGATIVE (NEGATIVE)
--- NOTE | 2021-05-16 05:48 | ER ---
Nurse's Notes [facility] Name: Keyla Addison Age: 26 yrs Sex: Female : 1995 Arrival Date: 05/16/2021 Time: 01:50 Bed 20 Private MD: Diagnosis: Cough;Influenza due to identified novel influenza A virus;Fever, unspecified Presentation: 05/16 02:26 Chief complaint: Patient states: C/O runny nose, cough, body aches, ear pain, since ll3 yesterday. Coronavirus screen: Vaccine status: Patient reports being unvaccinated. cough unrelated to allergies, muscle pain, runny nose. Ebola Screen: No symptoms or risks identified at this time. Initial Sepsis Screen: Does the patient meet any 2 criteria? RR > 20 per min. Systolic BP < 90 mmHg. HR > 90 bpm. Yes Does the patient have a suspected source of infection? No. Patient's initial sepsis screen is negative. Risk Assessment: Do you want to hurt yourself or someone else? Patient reports no desire to harm self or others. Onset of symptoms was May 15, 2021 at 18:00. Care prior to arrival: Medication(s) given: Motrin, 400 mg, DayQuil at 7AM yesterday. 02:26 Method Of Arrival: Ambulatory ll3 02:26 Acuity: EUGENIA 4 ll3 Triage Assessment: 02:30 General: Appears uncomfortable, Behavior is calm, cooperative. Pain: Complains of pain ll3 in right ear and left ear, body aches Pain does not radiate. Pain currently is 7 out of 10 on a pain scale. Pain began 1 day ago. Is continuous. EENT: Reports nasal discharge that is watery pain in left ear and right ear. Neuro: Level of Consciousness is awake, alert, obeys commands, Oriented to person, place, time, situation. Cardiovascular: Patient's skin is warm and dry. Respiratory: Reports pain with cough Respiratory effort is even, unlabored, Respiratory pattern is regular, symmetrical, Breath sounds are clear bilaterally. Respiratory: Reports. Derm: Skin is pink, warm \T\ dry. 02:30 Cardiovascular: Denies chest pain. 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 - Social history:: Smoking status: Patient denies any tobacco usage or history of. Screenin:37 Abuse screen: Denies threats or abuse. Nutritional screening: No deficits noted. ll3 Tuberculosis screening: No symptoms or risk factors identified. 03:59 Fall Risk No fall in past 12 months (0 pts). No secondary diagnosis (0 pts). IV access ll3 (20 points). Ambulatory Aid- None/Bed Rest/Nurse Assist (0 pts). Gait- Normal/Bed Rest/Wheelchair (0 pts) Mental Status- Oriented to own ability (0 pts). Total Enriquez Fall Scale indicates No Risk (0-24 pts). Assessment: 02:39 Reassessment:. General: See triage assessment. ll3 04:00 Reassessment: Patient and/or family updated on plan of care and expected duration. Pain ll3 level reassessed. Patient is alert, oriented x 3, equal unlabored respirations, skin warm/dry/pink. Pain is 7/10 Patient states symptoms have improved. 05:00 Reassessment: Patient and/or family updated on plan of care and expected duration. Pain ll3 level reassessed. Patient is alert, oriented x 3, equal unlabored respirations, skin warm/dry/pink. Patient states feeling better. 06:04 Reassessment: Patient and/or family updated on plan of care and expected duration. Pain ll3 level reassessed. Patient is alert, oriented x 3, equal unlabored respirations, skin warm/dry/pink. Patient states feeling better. Vital Signs: 02:26 BP 181 / 109; Pulse 122; Resp 22; Temp 102.7(O); Pulse Ox 99% on R/A; Weight 95.25 kg ll3 (R); Height 5 ft. 3 in. (160.02 cm) (R); 04:00 BP 153 / 97; Pulse 116; Resp 28; Pulse Ox 99% on R/A; ll3 04:36 Temp 100.7(O); ll3 05:00 BP 146 / 71; Pulse 108; Resp 22; Pulse Ox 98% on R/A; ll3 06:04 BP 159 / 100; Pulse 108; Resp 28; Pulse Ox 97% on R/A; ll3 02:26 Body Mass Index 37.20 (95.25 kg, 160.02 cm) ll3 ED Course: 01:50 Patient arrived in ED. 02:26 Kerwin Lebron, RN is Primary Nurse. ll3 02:30 Triage completed. ll3 02:30 Arm band placed on Patient placed in an exam room, on a stretcher, on pulse oximetry. ll3 02:37 Patient has correct armband on for positive identification. Bed in low position. Call 3 light in reach. Side rails up X 1. 03:02 Alphonso Espinal MD is Attending Physician. kdr 03:57 Initial lab(s) drawn, by ED staff, sent to lab. Second set of blood cultures drawn ll3 Urine collected: clean catch specimen, EKG done, COVID swab sent to lab. Flu and/or RSV swab sent to lab. Inserted saline lock: 20 gauge in right antecubital area, using aseptic technique. Blood collected. 06:04 No provider procedures requiring assistance completed. ll3 06:07 IV discontinued, intact, bleeding controlled, No redness/swelling at site. Pressure ll3 dressing applied. Administered Medications: 03:55 Drug: Tylenol 650 mg Route: PO; ll3 04:36 Follow up: Response: No adverse reaction; Temperature is decreased; Pain is decreased ll3 06:01 Drug: Tamiflu (oseltamivir) 75 mg Route: PO; ll3 Point of Care Testing: Blood Glucose: 03:57 Blood Glucose: 84 mg/dL; ll3 Ranges: Outcome: 05:47 Discharge ordered by . kdr 06:07 Discharged to home ambulatory. ll3 06:07 Condition: stable 06:07 Discharge instructions given to patient, Instructed on discharge instructions, follow up and referral plans. medication usage, Demonstrated understanding of instructions, follow-up care, medications, Prescriptions given X 1. 06:08 Patient left the ED. ll3 Signatures: Alphonso Espinal MD MD [facility] Mignon Grant Kerwin Lebron, RN RN ll3 Corrections: (The following items were deleted from the chart) 02:40 02:26 Initial Sepsis Screen: Does the patient meet any 2 criteria? No. Patient's ll3 initial sepsis screen is negative. Does the patient have a suspected source of infection? No. Patient's initial sepsis screen is negative. ll3 02:40 02:30 EENT: Reports nasal discharge that is watery pain in left ear and right ear ll3 3 04:00 04:00 Reassessment: No changes from previously documented assessment. 3 3 04:14 02:26 BP 181 / 109; Pulse 122bpm; Resp 19bpm; Pulse Ox 99% RA; Temp 102.7F Oral; 95.25 ll3 kg Reported; Height 5 ft. 3 in. Reported; BMI: 37.2; ll3 04:15 02:26 Initial Sepsis Screen: Does the patient meet any 2 criteria? No. Patient's ll3 initial sepsis screen is negative. Does the patient have a suspected source of infection? No. Patient's initial sepsis screen is negative. ll3
--- NOTE | 2021-05-16 05:48 | EDPHYS ---
Physician Documentation [facility] Name: Keyla Addison Age: 26 yrs Sex: Female : 1995 Arrival Date: 05/16/2021 Time: 01:50 Bed 20 Private MD: ED Physician Alphonso Espinal HPI: 05/16 05:52 This 26 yrs old Female presents to ER via Ambulatory with complaints of Cough, kdr Body Aches, Fever. 05:52 The patient or guardian reports cough, flu symptoms, arthralgias, low-grade fever, kdr myalgias, no appetite. Onset: The symptoms/episode began/occurred yesterday. Severity of symptoms: At their worst the symptoms were mild, moderate, just prior to arrival, in the emergency department the symptoms are unchanged. Modifying factors: The symptoms are alleviated by nothing, the symptoms are aggravated by nothing. The patient has not experienced similar symptoms in the past. The patient has not recently seen a physician. 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 - Social history:: Smoking status: Patient denies any tobacco usage or history of. ROS: 05:52 Constitutional: Negative for weight loss, -she has had fever and chills Eyes: Negative kdr for injury, pain, redness, and discharge, ENT: Negative for injury, pain, and discharge, Neck: Negative for injury, pain, and swelling, Cardiovascular: Negative for chest pain, palpitations, and edema, Abdomen/GI: Negative for abdominal pain, nausea, vomiting, diarrhea, and constipation, Back: Negative for injury and pain, : Negative for injury, bleeding, discharge, and swelling, MS/Extremity: Negative for injury and deformity, Skin: Negative for injury, rash, and discoloration, Neuro: Negative for headache, weakness, numbness, tingling, and seizure activity. Psych: Negative for depression, anxiety, suicide ideation, homicidal ideation, and hallucinations, Allergy/Immunology: Negative for hives, rash, and allergies, Endocrine: Negative for neck swelling, polydipsia, polyuria, polyphagia, and marked weight changes. 05:52 Respiratory: Positive for cough, with no reported sputum, dyspnea on exertion, shortness of breath, Negative for hemoptysis, orthopnea, pleurisy, sputum production, wheezing. Exam: 05:52 Constitutional: This is a well developed, well nourished patient who is awake, alert, kdr and in no acute distress. Head/Face: Normocephalic, atraumatic. Eyes: Pupils equal round and reactive to light, extra-ocular motions intact. Lids and lashes normal. Conjunctiva and sclera are non-icteric and not injected. Cornea within normal limits. Periorbital areas with no swelling, redness, or edema. Neck: Trachea midline, no thyromegaly or masses palpated, and no cervical lymphadenopathy. Supple, full range of motion without nuchal rigidity, or vertebral point tenderness. No Meningismus. Chest/axilla: Normal chest wall appearance and motion. Nontender with no deformity. No lesions are appreciated. Cardiovascular: Regular rate and rhythm with a normal S1 and S2. No gallops, murmurs, or rubs. Normal PMI, no JVD. No pulse deficits. Respiratory: Lungs have equal breath sounds bilaterally, clear to auscultation and percussion. No rales, rhonchi or wheezes noted. No increased work of breathing, no retractions or nasal flaring. Abdomen/GI: Soft, non-tender, with normal bowel sounds. No distension or tympany. No guarding or rebound. No evidence of tenderness throughout. Back: No spinal tenderness. No costovertebral tenderness. Full range of motion. 05:52 Cardiovascular: Rate: Patient's rate initially was in the 120s to 130s. However after fluid challenge, the rate dropped to 1 10-1 15 the patient was not acutely symptomatic. Vital Signs: 02:26 BP 181 / 109; Pulse 122; Resp 22; Temp 102.7(O); Pulse Ox 99% on R/A; Weight 95.25 kg ll3 (R); Height 5 ft. 3 in. (160.02 cm) (R); 04:00 BP 153 / 97; Pulse 116; Resp 28; Pulse Ox 99% on R/A; ll3 04:36 Temp 100.7(O); ll3 05:00 BP 146 / 71; Pulse 108; Resp 22; Pulse Ox 98% on R/A; ll3 06:04 BP 159 / 100; Pulse 108; Resp 28; Pulse Ox 97% on R/A; ll3 02:26 Body Mass Index 37.20 (95.25 kg, 160.02 cm) ll3 MDM: 05:47 Patient medically screened. kdr 05:54 Data reviewed: vital signs, nurses notes, lab test result(s), radiologic studies. kdr Counseling: I had a detailed discussion with the patient and/or guardian regarding: the historical points, exam findings, and any diagnostic results supporting the discharge/admit diagnosis, lab results, radiology results, the need for outpatient follow up. 05/16 03:06 Order name: Blood Culture Adult (2) kdr 05/16 03:06 Order name: CBC with Diff; Complete Time: 05:42 kdr 05/16 03:06 Order name: CMP; Complete Time: 05:42 kdr 05/16 03:06 Order name: Lactate; Complete Time: 05:42 kdr 05/16 03:06 Order name: Protime (+inr); Complete Time: 05:42 kdr 05/16 03:06 Order name: Ptt, Activated; Complete Time: 05:42 kdr 05/16 03:06 Order name: Accucheck; Complete Time: 03:53 kdr 05/16 03:07 Order name: Urine Culture kdr 05/16 03:08 Order name: COVID-19/FLU A+B (Document "Date of Onset" if Symptomatic); Complete Time: bb 05:42 05/16 04:06 Order name: Glucose, Ancillary Testing; Complete Time: 05:42 EDMS 05/16 04:07 Order name: Urine Dipstick-Ancillary; Complete Time: 05:42 EDMS 05/16 03:06 Order name: Cardiac monitoring; Complete Time: 03:53 kdr 05/16 03:06 Order name: EKG - Nurse/Tech; Complete Time: 03:32 kdr 05/16 03:07 Order name: IV Saline Lock - Large Bore; Complete Time: 03:53 kdr 05/16 03:07 Order name: Labs collected and sent; Complete Time: 03:53 kdr 05/16 03:07 Order name: O2 Per Protocol; Complete Time: 03:32 kdr 05/16 03:07 Order name: O2 Sat Monitoring; Complete Time: 03:32 kdr Administered Medications: 03:55 Drug: Tylenol 650 mg Route: PO; ll3 04:36 Follow up: Response: No adverse reaction; Temperature is decreased; Pain is decreased ll3 06:01 Drug: Tamiflu (oseltamivir) 75 mg Route: PO; ll3 Point of Care Testing: Blood Glucose: 03:57 Blood Glucose: 84 mg/dL; ll3 Ranges: Critical Glucose Levels:Adult <50 mg/dl or >400 mg/dl <40 mg/dl or >180 mg/dl Disposition Summary: 05/16/21 05:47 Discharge Ordered Location: Home kdr Problem: new kdr Symptoms: have improved kdr Condition: Stable kdr Diagnosis - Cough kdr - Influenza due to identified novel influenza A virus kdr - Fever, unspecified kdr Followup: kdr - With: Private Physician - When: 2 - 3 days - Reason: If symptoms return, Further diagnostic work-up, Recheck today's complaints, Continuance of care, Re-evaluation by your physician Discharge Instructions: - Discharge Summary Sheet kdr - Influenza, Adult, [id number] kdr - Cough, Adult, [id number] kdr - Fever, Adult, [id number] kdr Forms: - Medication Reconciliation Form kdr - Thank You Letter kdr - Antibiotic Education kdr - Prescription Opioid Use kdr - Work release form mw2 Prescriptions: - Tamiflu 75 mg Oral Capsule - take 1 tablet by ORAL route every 12 hours for 5 days; 10 tablet; Refills: 0, kdr Product Selection Permitted Signatures: Dispatcher [employer] Alphonso Wu MD MD kdr Kerwin Lebron RN RN ll3
[2021-05-16] MEDS ORDERED: OSELTAMIVIR 75 MG CAP ONE (05:58)
[2021-05-16 08:37] VITALS: TEMP 100.7
[2021-05-16 08:39] VITALS: BP 159/100; O2SAT 97
--- NOTE | 2021-05-19 08:27 | EKG ---
Test Date: 2021-05-16 Test Time: 03:26:37 Band Tumbler: SHOBHA MEASUREMENT RESULTS: Intervals: Rate: 120 IA: 136 QRSD: 66 QT: 290 QTc: 409 [place]: P: 61 IA: 136 QRS: 66 T: -8 INTERPRETIVE STATEMENTS: Sinus tachycardia Abnormal QRS-T angle, consider primary T wave abnormality Abnormal ECG Compared to ECG 12/05/2013 16:57:57 T-wave abnormality now present Sinus rhythm no longer present Electronically Signed On 05-19-21 08:22:47 CDT by Cliff Harden
== END 2021-05-16 06:08 | disposition home or self-care (01) ==
LOC: ER 01:46
DX: J10.1 Influenza due to other identified influenza virus with other respiratory manifestations (principal); R50.9 Fever, unspecified; Z20.822 Contact with and (suspected) exposure to COVID-19
CPT/HCPCS: 0240U; 36415; 80053; 81003; 82947; 83605; 85025; 85610; 85730; 87040; 87086; 87088; 93005; 99284